=== PATIENT | male | born 1985 | race Caucasian/White ===

== ENCOUNTER → 2020-04-16 14:58 | Outpatient (BNVA) | payer OTHER, SELFPAY | PROVIDERS: PCP Physician Assistant; Visit Provider Internal Medicine Gastroenterology | DX: Z13.89 Encounter for screening for other disorder (principal) | CPT/HCPCS: 99212 ==

== ENCOUNTER 2020-09-07 10:00 | Outpatient (REF) | payer OTHER, SELFPAY ==
[2020-09-07 10:35] LABS: MANUAL DIFF FLAG NO
[2020-09-07 10:39] LABS: Basophils Absolute Auto 0.1 X10*3/uL (0.0-0.2); Eosinophils Absolute Auto 0.4 X10*3/uL (0.0-0.4); Eosinophils Percent Auto 3.1 % (0-4); Hematocrit 44.1 % (42-52); Hemoglobin 14.7 g/dl (14.0-18.0); Imm Gran Abs Auto 0.03 X10*3/uL (0.00-0.03); Imm Gran Pct Auto 0.3 % (0.0-0.4); Lymphocytes Absolute Auto 1.7 X10*3/uL (1.2-4.9); Lymphocytes Percent Auto 15.4 % (20-40); Mean Corpuscular HGB Conc 33.3 g/dl (31.0-36.0); Mean Corpuscular Hemoglobin 29.8 pg (27.0-33.0); Mean Corpuscular Volume 89.5 fL (80-98); Mean Platelet Volume 9.7 fL (9.4-12.4); Monocytes Percent Auto 8.6 % (2-11); Neutrophils Percent Auto 71.6 % (45-73); Platelet Count 438 X10*3/uL (160-400); Red Blood Count 4.93 X10*6/uL (4.60-5.80); Red Cell Distribution Width 12.5 % (11.0-16.0); White Blood Count 11.1 X10*3/uL (4.8-10.8)
[2020-09-07 11:20] LABS: Alanine Aminotransferase 12 U/L (0-40); Albumin Level 4.3 g/dL (3.5-5.0); Alkaline Phosphatase 62 U/L (39-117); Anion Gap 11 (12-20); Aspartate Amino Transferase 16 U/L (5-37); Bilirubin Total 0.8 mg/dL (0.0-1.0); Blood Urea Nitrogen 11 mg/dL (9-16); C Reactive Protein 0.22 mg/dL (< or = 0.50); Calcium 9.9 mg/dL (8.4-10.2); Carbon Dioxide 28 mmol/L (22-29); Chloride 107 mmol/L (96-108); Estimated Glomerular Filt Rate > 60; Glucose Random 99 mg/dL (60-115); Potassium 4.3 mmol/L (3.3-5.1); Sodium 142 mmol/L (135-145); Total Protein 7.3 g/dL (6.5-8.0)
[2020-09-07 11:26] LABS: Erythrocyte Sedimentation Rate 2 MM/HR (0-15)
[2020-09-07 11:43] LABS: Ferritin 44 ng/mL (20-250)
[2020-09-11 06:30] LABS: Zinc 87 mcg/dL (60-130)
== END 2020-09-07 10:01 | disposition home or self-care (01) ==
LOC: HO.LAB 10:00
PROVIDERS: Absent Provider Physician Assistant; PCP Physician Assistant; Visit Provider Internal Medicine Gastroenterology
DX: K51.90 Ulcerative colitis, unspecified, without complications (principal); K75.81 Nonalcoholic steatohepatitis (NASH)
CPT/HCPCS: 36415; 80053; 82728; 84630; 85025; 85652; 86140

== ENCOUNTER → 2020-09-17 15:24 | Outpatient (BNVA) | payer OTHER, SELFPAY | PROVIDERS: PCP Physician Assistant; Referring Provider Physician Assistant; Visit Provider Internal Medicine Gastroenterology | DX: K51.90 Ulcerative colitis, unspecified, without complications (principal) | CPT/HCPCS: 99212 ==

== ENCOUNTER 2020-09-19 10:43 | Outpatient (REF) | payer OTHER, SELFPAY ==
[2020-09-19 11:40] LABS: MANUAL DIFF FLAG NO
[2020-09-19 11:45] LABS: Basophils Absolute Auto 0.1 X10*3/uL (0.0-0.2); Basophils Percent Auto 0.8 % (0-2); Eosinophils Absolute Auto 0.4 X10*3/uL (0.0-0.4); Hematocrit 42.8 % (42-52); Hemoglobin 14.3 g/dl (14.0-18.0); Imm Gran Abs Auto 0.02 X10*3/uL (0.00-0.03); Imm Gran Pct Auto 0.3 % (0.0-0.4); Lymphocytes Absolute Auto 1.7 X10*3/uL (1.2-4.9); Lymphocytes Percent Auto 23.4 % (20-40); Mean Corpuscular HGB Conc 33.4 g/dl (31.0-36.0); Mean Corpuscular Hemoglobin 29.6 pg (27.0-33.0); Mean Corpuscular Volume 88.6 fL (80-98); Mean Platelet Volume 9.6 fL (9.4-12.4); Monocytes Absolute Auto 0.6 X10*3/uL (0.1-1.2); Monocytes Percent Auto 7.7 % (2-11); Neutrophils Absolute Auto 4.5 X10*3/uL (2.0-8.3); Neutrophils Percent Auto 62.8 % (45-73); Platelet Count 472 X10*3/uL (160-400); Red Blood Count 4.83 X10*6/uL (4.60-5.80); Red Cell Distribution Width 12.3 % (11.0-16.0); White Blood Count 7.1 X10*3/uL (4.8-10.8)
[2020-09-19 12:06] LABS: Alanine Aminotransferase 12 U/L (0-40); Albumin Level 4.2 g/dL (3.5-5.0); Alkaline Phosphatase 64 U/L (39-117); Anion Gap 11 (12-20); Aspartate Amino Transferase 16 U/L (5-37); Bilirubin Total 1.1 mg/dL (0.0-1.0); Blood Urea Nitrogen 10 mg/dL (9-16); C Reactive Protein 0.25 mg/dL (< or = 0.50); Calcium 9.7 mg/dL (8.4-10.2); Carbon Dioxide 27 mmol/L (22-29); Chloride 107 mmol/L (96-108); Estimated Glomerular Filt Rate > 60; Glucose Random 101 mg/dL (60-115); Iron 126 mcg/dL (45-160); Percent Iron Saturation 37 % (15-50); Sodium 141 mmol/L (135-145); Total Iron Binding Capacity 344 mcg/dL (228-428); Total Protein 6.9 g/dL (6.5-8.0); Unsaturated Iron Binding 218 ug/dL
[2020-09-19 12:21] LABS: Ferritin 47 ng/mL (20-250); TSH reflex Free T4 1.66 uIU/mL (0.32-4.0)
[2020-09-19 12:39] LABS: Erythrocyte Sedimentation Rate 2 MM/HR (0-15)
[2020-09-22 06:26] LABS: Zinc 93 mcg/dL (60-130)
[2020-09-24 13:11] LABS: Transglutaminase Ab IgG 2 U/mL; Transglutaminase IgA 1 U/mL
== END 2020-09-19 10:44 | disposition home or self-care (01) ==
LOC: HO.LAB 10:43
PROVIDERS: PCP Physician Assistant; Visit Provider Internal Medicine Gastroenterology
DX: G89.29 Other chronic pain (principal); K51.90 Ulcerative colitis, unspecified, without complications; R10.33 Periumbilical pain; K75.81 Nonalcoholic steatohepatitis (NASH)
CPT/HCPCS: 36415; 80053; 82728; 83516; 83540; 84443; 84630; 85025; 85652; 86140

== ENCOUNTER 2020-09-20 13:18 | Outpatient (REF) | payer OTHER, SELFPAY ==
[2020-09-20 14:49] LABS: CDiff Gene PCR NEGATIVE (Negative)
[2020-09-24 20:01] LABS: Calprotectin, Fecal 303 mcg/g
== END 2020-09-20 13:19 | disposition home or self-care (01) ==
LOC: HO.LNP 13:18
PROVIDERS: Visit Provider Internal Medicine Gastroenterology
DX: K51.90 Ulcerative colitis, unspecified, without complications (principal)
CPT/HCPCS: 83993; 87329; 87493

== ENCOUNTER 2020-12-13 11:12 | Outpatient (REF) | payer OTHER, SELFPAY ==
--- NOTE | ~2020-12-13 | XR_ITS ---
EXAMINATION: XR ABDOMEN COMPLETE CLINICAL INDICATION: K51.919 - Ulcerative colitis, unspecified COMPARISON: CT abdomen and pelvis 12/13/2020, 05/23/2019 TECHNIQUE: 2 supine views of the abdomen. FINDINGS: There is no gaseous dilatation of bowel or abnormal collections of gas. No pneumatosis or bowel displacement. The lung bases are clear. There are no visible urinary tract calculi. Bony structures are unremarkable. XR/XR abdomen 3V IMPRESSION: No obstruction or abnormal collections of gas.
[2020-12-13 11:52] LABS: Hematocrit 33.6 % (42-52); Hemoglobin 11.3 g/dl (14.0-18.0); Mean Corpuscular HGB Conc 33.6 g/dl (31.0-36.0); Mean Corpuscular Hemoglobin 30.1 pg (27.0-33.0); Mean Corpuscular Volume 89.4 fL (80-98); Platelet Count 820 X10*3/uL (160-400); Red Blood Count 3.76 X10*6/uL (4.60-5.80); Red Cell Distribution Width 13.3 % (11.0-16.0); White Blood Count 22.3 X10*3/uL (4.8-10.8)
[2020-12-13 12:20] LABS: Alanine Aminotransferase 13 U/L (0-40); Albumin Level 3.7 g/dL (3.5-5.0); Alkaline Phosphatase 62 U/L (39-117); Anion Gap 10 (12-20); Aspartate Amino Transferase 18 U/L (5-37); Bilirubin Total 0.5 mg/dL (0.0-1.0); Blood Urea Nitrogen 8 mg/dL (9-16); C Reactive Protein 1.98 mg/dL (< or = 0.50); Calcium 9.6 mg/dL (8.4-10.2); Carbon Dioxide 29 mmol/L (22-29); Chloride 105 mmol/L (96-108); Estimated Glomerular Filt Rate > 60; Glucose Fasting 107 mg/dL (60-99); Iron 31 mcg/dL (45-160); Lipase 317 U/L (8-78); Percent Iron Saturation 10 % (15-50); Potassium 4.3 mmol/L (3.3-5.1); Sodium 140 mmol/L (135-145); Total Iron Binding Capacity 325 mcg/dL (228-428); Total Protein 6.2 g/dL (6.5-8.0); Unsaturated Iron Binding 294 ug/dL
[2020-12-13 12:35] LABS: TSH reflex Free T4 3.23 uIU/mL (0.32-4.0)
[2020-12-13 12:46] LABS: Erythrocyte Sedimentation Rate 17 MM/HR (0-15)
== END 2020-12-13 11:13 | disposition home or self-care (01) ==
LOC: HO.LAB 11:12
PROVIDERS: PCP Physician Assistant; Visit Provider Physician Assistant
DX: I10 Essential (primary) hypertension (principal); K51.919 Ulcerative colitis, unspecified with unspecified complications; D50.9 Iron deficiency anemia, unspecified; Z13.29 Encounter for screening for other suspected endocrine disorder; Z13.1 Encounter for screening for diabetes mellitus
CPT/HCPCS: 36415; 74021; 80053; 83540; 83605; 83690; 84443; 85027; 85652; 86140

== ENCOUNTER 2020-12-13 15:38 | Inpatient (IN) | payer OTHER, SELFPAY ==
--- NOTE | ~2020-12-13 | CT_ITS ---
EXAMINATION: CT ABDOMEN AND PELVIS WITHOUT CONTRAST CLINICAL INFORMATION: Pancreatitis and colitis. COMPARISON: CT abdomen pelvis 05/23/2019 TECHNIQUE: Multidetector volumetric imaging was performed from the superior aspect of the liver through the pubic symphysis. Sagittal and coronal reformatted images were obtained on the technologist's workstation. This CT examination was performed using dose optimization techniques as appropriate, variously including the following: *Automated exposure control *Adjustment of mA and/or kV according to patient size (this includes techniques or standardized protocols for targeted exams where dose is matched to indication/reason for exam; i.e. extremities or head) *Use of iterative reconstruction technique DLP: 558 mGy-cm FINDINGS: LUNG BASES: The visualized lung bases are unremarkable. LIVER, GALLBLADDER, AND BILIARY TREE: The liver is normal in size, shape, and attenuation. No focal hepatic lesion or biliary ductal dilatation is present. The gallbladder is unremarkable with no evidence of radiopaque gallstones, gallbladder wall thickening, or obvious pericholecystic inflammatory changes. PANCREAS: The pancreas is homogeneous in density and normal size. The peripancreatic fat planes are preserved. SPLEEN: Unremarkable. ADRENAL GLANDS: Unremarkable. KIDNEYS AND URETERS: The kidneys are normal in size, shape, and attenuation. No hydronephrosis, hydroureter, or calculi seen. No perinephric stranding. BLADDER: Unremarkable. GASTROINTESTINAL TRACT: There is diffuse mural thickening involving the entire colon with minimal pericolic fat stranding in both flanks suggestive of pancolitis. The small bowel loops are normal caliber. Ileocecal junction and appendix is normal caliber. There are small lymph nodes seen throughout the mesocolon with the largest lymph node left needle: Measuring 1.2 cm on axial image 54/3. ABDOMINAL WALL: A small umbilical hernia containing fat is noted. LYMPH NODES: Normal. VASCULAR: Unremarkable. PELVIC VISCERA: Unremarkable. OSSEOUS STRUCTURES: No lytic or sclerotic process seen. CT/CT abdomen pelvis wo con IMPRESSION: Diffuse pancolitis. Enlarged lymph nodes throughout the mesocolon most prominent in the left colon.
[2020-12-13 16:28] VITALS: BP 131/77; PULSE 99; RESP 18; TEMP 37.1; O2SAT 98; BMI 27.9
--- NOTE | 2020-12-13 18:55 | ED_ITS ---
HPI - Abdominal Pain General Chief Complaint: Abdominal Pain Stated Complaint: Abnormal labs Time Seen by Provider: 12/13/20 18:40 Source: patient and family (Spouse) Mode of arrival: ambulatory Limitations: no limitations History of Present Illness HPI narrative: 35-year-old male came in for evaluation of abdominal pain, elevated wbc. Patient with known history of ulcerative colitis has been on apriso and mesalam ine that he discontinued after he lost his insurance because he can not afford it, patient came in with symptoms started 3-4 days ago with abdominal pain, vomiting pain is diffuse in the abdomen, no radiation, constant, severe /, associated with nausea and vomiting and bloody loose stool in generalized weakness, nothing relieves the pain, pain get worse with food and fluid. Patient was seen by his PCP and was sent to the emergency department for further evaluation of leukocytosis and elevation of the lipase. Related Data Home Medications Medication Instructions Recorded Confirmed buspirone 10 mg tablet 10 mg PO BID 04/16/20 12/13/20 Previous Rx's Medication Instructions Recorded mesalamine 1,000 mg rectal 1 g RI BEDTIME 30 Days #30 supp 12/13/20 suppository mesalamine 500 mg 1,500 mg PO ONCE 30 Days #90 cap 12/13/20 capsule,controlled release omeprazole 20 mg capsule,delayed 20 mg PO DAILY 30 Days #30 cap 12/13/20 release ondansetron 8 mg disintegrating 8 mg PO Q12H 15 Days #30 tab 12/13/20 tablet prednisone 10 mg tablet 10 mg PO DAILY 9 Days #18 tab 12/13/20 Allergies Allergy/AdvReac Type Severity Reaction Status Date / Time No Known Allergies Allergy Verified 12/13/20 16:31 Review of Systems Review of Systems All other systems are reviewed and are negative Constitutional: Reports as per HPI and Reports no additional constitutional complaints Eyes: Reports as per HPI and Reports no additional eye complaints Reports system reviewed and no additional complaints, except as documented Cardiovascular: Reports as per HPI and Reports no additional cardiovascular complaints Respiratory: Reports as per HPI and Reports no additional respiratory complaints Gastrointestinal: Reports as per HPI and Reports no additional gastrointestinal complaints Genitourinary: Reports no additional female genitourinary complaints Musculoskeletal: Reports no additional musculoskeletal complaints Skin/Breast: Reports system reviewed and no additional complaints, except as docu Psychiatric: Reports no additional psychiatric complaints Endocrine: Reports no additional endocrine complaints Hematologic/Lymphatic: Reports no additional hematologic/lymphatic complaints Allergic/Immunologic: Reports no additional allergic/immunologic complaints Reports system reviewed and no additional complaints, except as documented and Reports Abnormal speech present Physical Exam Vital Signs: Vital Signs: Last Vital Signs Temp 98.7 F 12/13/20 16:28 Pulse 99 12/13/20 16:28 Resp 18 12/13/20 16:28 BP 131/77 12/13/20 16:28 Pulse Ox 98 12/13/20 16:28 Body Mass Index 27.9 Vital signs have been reviewed as appeared to be correct. Blood pressure normal. Heart rate normal. Respiration rate normal. Temperature normal. Oxygen saturation normal. Appearance: Alert. Oriented X3. No acute distress. Head: Normal external exam. Normocephalic. Atraumatic. No Pham signs noted. No raccoon eyes noted Eyes: PERRLA. EOMI. Conjunctiva and sclera normal. Eyelids normal. ENT: TM's Normal. Pharynx normal. Uvula midline. Dry mucous membranes. No trismus noted. No drooling noted. No muffled voice noted. Neck: Normal inspection. Neck supple. FROM. No adenopathy. Thyroid Normal. No meningeal signs. No neck mass noted. CVS: Normal heart rate and rhythm. Heart sound normal. No murmurs noted. Pulses normal throughout. Respiratory: No respiratory distress. Painless inspiration. Breath sounds normal. No wheezes/rales/rhonchi noted. Chest nontender. No accessory muscle usage noted or decreased air movement noted. Abdomen: Soft, diffuse tenderness, no guarding, no rebound tenderness. Bowel sounds normal in all 4 quadrants. No distention noted. No organomegaly noted. No visible injury noted. Back: No CVA tenderness. Full range of motion noted. Skin: Skin warm and dry. Normal skin color. Normal skin turgor. No rashes/lesions/lacerations noted. Extremities: No lower extremity edema. Extremities exhibit normal range of motion. Extremities nontender. Neuro: Oriented X 3. Cranial nerve exam: II-XII are grossly intact No motor deficit. No sensory deficit. Reflexes normal. Course Course Course Narrative: Assessment and plan. 35-year-old male history of ulcerative colitis follow-up with Dr. House, came in with abdominal pain and leukocytosis. Physical exam/CT finding are consistent with colitis flare up. Case discussed with Dr. House who recommended to start the patient on antibiotics, send stool for further study, hydration, hold of on steroid until stool studies are back. Elevated lipase, no evidence of acute pancreatitis on the CT. MDM - Abdominal Pain Lab Data Attestation: I reviewed the patient's lab results. Labs: Lab Results 12/13/20 Range/Units 19:33 Lactic Acid 1.0 (0.5-2.0) mmol/L Imaging Data CT scan - abdomen: Radiologist's impression: Diffuse pancolitis. ? Enlarged lymph nodes throughout the mesocolon most prominent in the left colon.? Discharge Plan Discharge Clinical Impression: Ulcerative colitis Patient Disposition: Admitted As Inpatient Prescriptions: No Action buspirone 10 mg tablet 10 mg PO BID RF: 0 prednisone 10 mg tablet 10 mg PO DAILY 9 Days Qty: 18 RF: 0 mesalamine 1,000 mg suppository 1 g RI BEDTIME 30 Days Qty: 30 RF: 0 mesalamine 500 mg capsule, extended release 1,500 mg PO ONCE 30 Days Qty: 90 RF: 0 ondansetron 8 mg tablet,disintegrating 8 mg PO Q12H 15 Days Qty: 30 RF: 0 omeprazole 20 mg capsule,delayed release(DR/EC) 20 mg PO DAILY 30 Days Qty: 30 RF: 0 PMFSH Past Medical History Medical History Ulcerative colitis Surgical History H/O colonoscopy No pertinent past surgical history Family History Family History Father Diabetes Hypertension Mother Tachycardia Daughter In good health Daughter In good health Sister In good health Sister In good health Sister In good health Maternal Grandfather Myocardial infarction Maternal Aunt Stroke Maternal Grandmother Alzheimer disease Social History Social History Household Members: Spouse and Children Housing: Apartment Alcohol intake: current Alcohol intake frequency: does not drink Patient Tobacco Use Status: Former Tobacco user Years Smoked: 2017 e-Cigarette/Vaping Use: Never Used Advance Directives: No Advance Directives Information Provided: No Current occupational status: employed Current occupation: [employer]
[2020-12-13] MEDS: ondansetron HCL 4 MG/2 ML VIAL IVPUSH (19:47)
[2020-12-13] MEDS: 0.9 % Sodium Chloride 2,052 ML 2052 ML IV (19:47)
[2020-12-13] MEDS: metroNIDAZOLE/NS 500 MG/100 ML PIGGYBACK 100 MG IV (19:53)
[2020-12-13] MEDS: levoFLOXacin/D5W 750 MG/150 ML PIGGYBACK 100 MG IV (20:58)
--- NOTE | 2020-12-13 21:04 | PHA.MEDREC ---
Pharmacy Consult ? Medication Reconciliation Pharmacy has completed the medication reconciliation. Patient had a primary care appointment today where he was prescribed mesalamine 1500 mg daily, omeprazole 20mg daily, ondansetron 8mg q12h and a prednisone taper. The patient came straight from the office and wasn't able to fill any of these medications prescribed by Jose Stephen. The patient also takes buspirone 10 mg BID and Mesalamine 1000mg rectally at bedtime. [address] St, PharmD [phone]
--- NOTE | 2020-12-13 21:06 | PC.NURSE ---
pt a&o, no sob or chest pain. Second antibiotic delayed due to 1 Iv access. Pt starting a Po change at this time.
--- NOTE | 2020-12-13 21:26 | PM.IMHP ---
History of Present Illness Date of Service: 12/13/20 Chief Complaint: Abdominal pain 35-year-old male with past medical history of ulcerative colitis who presents to the hospital with complaints of abdominal pain, and bloody diarrhea for the past 1-2 months. Patient reports he is also experiencing abdominal pain. The pain is diffuse, cramping, intermittent, nonradiating, no alleviating or exacerbating factors. Patient reports that he went to his PCP today, had blood work done, he was called few hours later and was sent to the hospital due to abnormal labs. Patient currently denies any headache, no change in vision, no chest pain, no palpitations, no urinary symptoms and no lower extremity edema. No numbness tingling or weakness On arrival to the ED hemodynamically stable with no significant abnormal vitals Labs reviewed show hemoglobin of 11.3, elevated CRP and ESR, elevated lipase, Otherwise unremarkable Abdominal CT shows diffuse pancolitis, enlarged lymph nodes throughout the massive: Most prominent in the left colon Case was discussed with GI, patient will be admitted for further management Review of Systems Review of Systems: Yes all other systems are reviewed and are negative [facility] Medical History Ulcerative colitis Family History Father Diabetes Hypertension Mother Tachycardia Daughter In good health Daughter In good health Sister In good health Sister In good health Sister In good health Maternal Grandfather Myocardial infarction Maternal Aunt Stroke Maternal Grandmother Alzheimer disease Pertinent family history: No present history Surgical History H/O colonoscopy No pertinent past surgical history Social History Household Members: Spouse and Children Housing: Apartment Alcohol intake: never Patient Tobacco Use Status: Former Tobacco user Years Smoked: 2017 e-Cigarette/Vaping Use: Never Used Use of substances other than those prescribed or required for medical reasons: No Advance Directives: No Advance Directives Information Provided: No service: No Current occupational status: employed Current occupation: [employer] Allergies Allergy/AdvReac Type Severity Reaction Status Date / Time No Known Allergies Allergy Verified 12/13/20 16:31 Active Medications: Current Medications Pharmacy Consult (Consult Rx Perform Med Rec) 1 each MISCELLANE ONCE PRN PRN Reason: Consult order Home Medications Medication Instructions Recorded Confirmed Last Taken Type buspirone 10 mg tablet 10 mg PO BID 04/16/20 12/13/20 Unknown History Physical Exam Vital Signs and Narrative: Vital Signs: Last Vital Signs Temp 98.7 F 12/13/20 16:28 Pulse 99 12/13/20 16:28 Resp 18 12/13/20 16:28 BP 131/77 12/13/20 16:28 Pulse Ox 98 12/13/20 16:28 Body Mass Index 27.9 Const: General: cooperative and no acute distress Orientation/consciousness: patient oriented x3 Eyes: General: appearance normal, both eyes and all related structures Pupils: Equal, round and reactive pupils present Resp: Effort & Inspection: normal respiratory effort Auscultation: clear to auscultation bilaterally Cardio: Rate: regular rate Rhythm: regular rhythm GI: Other: Diffuse tenderness, no rebound or guarding Palpation (GI): Soft to palpation Auscultation: normal bowel sounds Skin: General skin exam: no rashes or lesions noted Neuro: General: patient oriented x3 Cranial nerves: Yes Equal, round and reactive pupils present Cognition (Neuro): normal cognition Extrem: General: Yes normal to inspection and Yes no pedal edema Results Labs Labs: Laboratory Results - last 24 hr 12/13/20 19:33 Lactic Acid 1.0 Imaging Radiologist's Impressions: Impressions Abdomen/Pelvis CT 12/13/20 18:47 IMPRESSION: Diffuse pancolitis. Enlarged lymph nodes throughout the mesocolon most prominent in the left colon. Assessment and Plan (1) Ulcerative colitis: Status: Acute VTE 5-year-old male with past medical history of ulcerative colitis presents to the hospital with abdominal pain and bloody diarrhea # ulcerative colitis flare - has abdominal pain, diarrhea, and CT evidence of pancolitis - rule out infectious etiology, C diff, stool cultures - will start him on IV antibiotics - GI once stool cultures to be back prior to starting steroids - further GI recommendation appreciated DVT prophylaxis: SCDs and early ambulation the setting of bleeding with ulcerative colitis Quality Stroke Does the patient have a stroke diagnosis?: No VTE Prior VTE?: No VTE Risk Level:: Medical - moderate - high VTE Device Contraindication: N/A - Device Ordered VTE Drug Contraindication: Treatment Not Indicated
[2020-12-13 21:51] LABS: COVID-19 Test Negative (Negative); IDNOW Serial# 9DD0AD1C
[2020-12-13 21:55] VITALS: BP 111/58; RESP 16
[2020-12-13 22:06] VITALS: BP 111/58; PULSE 92; RESP 18; TEMP 36.6; O2SAT 100
[2020-12-13 22:08] LABS: OBS Int Ctl Valid YES; OBS1 POSITIVE (NEGATIVE)
--- NOTE | 2020-12-13 22:14 | MHC.CM.PN ---
CM met with admitted patient with bed assignment pending. [facility]. No IMM necessary. No HCP/ HCP reviewed, completed and signed. Copies given and uploaded into [facility] [employer] and [facility] [place] HCP/ Ladan Martinez ([phone]). Lives with and family. Independent. No DME, No services. Not vaccinated. CM encouraged vaccination. D/C plan is home without services. Transportation by family. CM to follow for d/c needs.
[2020-12-13] MEDS: Lactated Ringers 1,000 ML 80 ML IVCONT (22:34)
[2020-12-13] MEDS: Enoxaparin Sodium 40 MG/0.4 ML SYRINGE SUBCUT (22:37)
[2020-12-13 22:39] VITALS: BP 123/70; PULSE 88; RESP 16
[2020-12-13 23:00] LABS: CDiff Gene PCR NEGATIVE (Negative); Leukocytes Stool Qualitative MANY: >10/OIF (NEGATIVE)
[2020-12-13 23:08] VITALS: BP 119/64; PULSE 87; RESP 16; O2SAT 98
--- NOTE | 2020-12-13 23:23 | PC.NURSE ---
pt is resting, no n/v. medicated per mar.
[2020-12-14] VITALS (8 sets, daily range): BP systolic 101–144; BP diastolic 47–73; PULSE 73–96; RESP 14–18; TEMP 36.8–37.2; O2SAT 97–100
[2020-12-14 00:48] LABS: Appearance Urine CLEAR; Color Urine YELLOW; Glucose Urine UA NEG (NEG); Leukocyte Esterase Urine NEG (NEG); Nitrite Urine NEG (NEG); Specific Gravity - Urine >= 1.030 (1.005-1.025); Urine Blood NEG (NEG); Urine Ketones 15 MG/DL (NEG); Urine Protein NEG (NEG-TRACE)
--- NOTE | 2020-12-14 01:17 | PC.NURSE ---
Pt is sleeping at this time, no sign of distress. Iv fluid running per mar.
--- NOTE | 2020-12-14 04:07 | PC.NURSE ---
pt is sleeping at this no sign of distress.
--- NOTE | 2020-12-14 06:00 | PC.NURSE ---
tried to get updated vitals on pt and she refused and told me that we had gotten enough from her .
[2020-12-14 06:09] LABS: Basophils Absolute Auto 0.1 X10*3/uL (0.0-0.2); Basophils Percent Auto 0.4 % (0-2); Eosinophils Percent Auto 22.4 % (0-4); Hematocrit 26.9 % (42-52); Hemoglobin 8.8 g/dl (14.0-18.0); Imm Gran Abs Auto 0.11 X10*3/uL (0.00-0.03); Imm Gran Pct Auto 0.6 % (0.0-0.4); Lymphocytes Absolute Auto 2.3 X10*3/uL (1.2-4.9); Lymphocytes Percent Auto 12.9 % (20-40); MANUAL DIFF FLAG SCAN; Mean Corpuscular HGB Conc 32.7 g/dl (31.0-36.0); Mean Corpuscular Hemoglobin 29.2 pg (27.0-33.0); Mean Corpuscular Volume 89.4 fL (80-98); Mean Platelet Volume 8.7 fL (9.4-12.4); Monocytes Absolute Auto 1.6 X10*3/uL (0.1-1.2); Monocytes Percent Auto 8.7 % (2-11); Neutrophils Absolute Auto 9.9 X10*3/uL (2.0-8.3); Platelet Count 632 X10*3/uL (160-400); Red Blood Count 3.01 X10*6/uL (4.60-5.80); Red Cell Distribution Width 13.5 % (11.0-16.0); SCAN SMEAR FLAG 1; White Blood Count 18.1 X10*3/uL (4.8-10.8)
[2020-12-14] MEDS: Omeprazole 20 MG CAPSULE.DR PO ×2 (06:21→14:51)
[2020-12-14 06:24] LABS: Anion Gap 8 (12-20); Blood Urea Nitrogen 4 mg/dL (9-16); Calcium 8.3 mg/dL (8.4-10.2); Carbon Dioxide 27 mmol/L (22-29); Chloride 109 mmol/L (96-108); Creatinine Clr Calc Pharmacy 125.9; Estimated Glomerular Filt Rate > 60; Glucose Random 102 mg/dL (60-115); Potassium 3.7 mmol/L (3.3-5.1); Sodium 140 mmol/L (135-145)
[2020-12-14 06:37] LABS: SLIDE REVIEW VERIFIED
[2020-12-14] MEDS: metroNIDAZOLE/NS 500 MG/100 ML PIGGYBACK 100 MG IV ×3 (07:00→22:57)
[2020-12-14 07:52] LABS: Hematocrit 27.9 % (42-52); Hemoglobin 9.3 g/dl (14.0-18.0)
[2020-12-14] MEDS: 0.9 % Sodium Chloride Flush 3 ML SYRINGE IVFLUSH (08:06)
[2020-12-14] MEDS: levoFLOXacin/D5W 750 MG/150 ML PIGGYBACK 100 MG IV (08:06)
[2020-12-14 08:27] LABS: Iron 35 mcg/dL (45-160); Percent Iron Saturation 15 % (15-50); Total Iron Binding Capacity 241 mcg/dL (228-428); Unsaturated Iron Binding 206 ug/dL
--- NOTE | 2020-12-14 08:31 | PC.NURSE ---
Patient A+O x 4. Patient resting comfortably, in no apparent distress. Patient denies pain, dizziness, lightheadedness, color good. Patient amb to bathroom, steady on feet. Lungs clear bilat. Abdomen soft, nontender, BS active, patient had bloody/mucousy BM. Awaiting bed assignment.
[2020-12-14 08:47] LABS: Ferritin 18 ng/mL (20-250)
[2020-12-14 09:18] LABS: Folate 14.3 ng/mL (> or = 4.0); Vitamin B12 391 pg/mL (200-900)
[2020-12-14] MEDS: busPIRone HCl 10 MG TABLET PO ×2 (09:23→21:40)
[2020-12-14] MEDS: Lactated Ringers 1,000 ML 80 ML IVCONT ×2 (09:23→22:57)
--- NOTE | 2020-12-14 11:24 | PC.NURSE ---
pt seen by dr. baltazar mcgowan is aware of plan of care.
--- NOTE | 2020-12-14 11:33 | PC.NURSE ---
PT C/O SLIGHT NAUSEA, TO BE MED X 1 WITH ZOFRAN 4MG IVP X 1
[2020-12-14] MEDS: ondansetron HCL 4 MG/2 ML VIAL IVPUSH (11:34)
--- NOTE | 2020-12-14 12:58 | HO.PM.IMPN ---
Subjective Subjective Date of Service: 12/14/20 Interval History: ulcerative colitis flare Review of Systems still having mucousy stools with blood Has some left-sided abdominal pain Denies any complaint of chest pain or shortness of breath or fever or chills or nausea or vomiting Denies any cough Denies any weakness or numbness. Physical Exam Vital Signs: Vital Signs: Last Vital Signs Temp 98.6 F 12/14/20 11:22 Pulse 75 12/14/20 11:22 Resp 16 12/14/20 11:22 BP 120/58 L 12/14/20 11:22 Pulse Ox 99 12/14/20 11:22 Body Mass Index 27.9 Physical exam: Appearance: Alert.? Oriented X3.? not in distress.? Eyes: Pupils equal, round and reactive to light.? Sclera nonicteric.? ENT: Pharynx normal.? Moist mucous membranes. cvs: rrr, [id number] , no murmur res: clear to auscultation ,no rhonchii or wheezing abd: no rebound or guarding ,left lowe abd pain , bs present. ext pulses present , no cyanosis ,Gait well balanced well coordinated. neuro: axo3 , nonfocal. Objective Data Active Medications Acetaminophen (Acetaminophen 325 Mg Tablet) 650 mg PO Q6H PRN PRN Reason: Pain, Mild (Pain Scale 1-3) Buspirone HCl (Buspirone Hcl 10 Mg Tablet) 10 mg PO BID [facility] Last Admin: 12/14/20 09:23 Dose: 10 mg Documented by: MAGALY Lactated Ringer's (Lr) 1,000 mls @ 80 mls/hr IVCONT .[id number] [facility] Last Admin: 12/14/20 09:23 Dose: 80 mls/hr Documented by: MAGLAY Levofloxacin (Levaquin) 750 mg in 150 mls @ 100 mls/hr IV Q24H [facility] Last Infusion: 12/14/20 09:40 Dose: 0 mls/hr Documented by: MAGALY Metronidazole (Flagyl) 500 mg in 100 mls @ 100 mls/hr IV Q8H [facility] Last Infusion: 12/14/20 08:06 Dose: 0 mls/hr Documented by: MAGALY Non-Formulary Medication (Mesalamine) 1 gm [place] BEDTIME [facility] Omeprazole (Omeprazole 20 Mg Capsule.) 20 mg PO BID@0630,1630 [facility] Ondansetron HCl (Ondansetron Hcl 4 Mg/2 Ml Vial) 4 mg IVPUSH Q8H PRN PRN Reason: Nausea and Vomiting Last Admin: 12/14/20 11:34 Dose: 4 mg Documented by: RAMON Oxycodone HCl (Oxycodone Hcl Immed Release 5 Mg Tablet) 5 mg PO Q6H PRN PRN Reason: Pain, Severe (Pain Scale 7-10) Pharmacy Consult (Consult Rx Perform Med Rec) 1 each MISCELLANE ONCE PRN PRN Reason: Consult order Sodium Chloride (0.9 % Sodium Chloride Flush 3 Ml Syringe) 3 ml IVFLUSH QSHIFT [facility] Last Admin: 12/14/20 08:06 Dose: 3 ml Documented by: MAGALY Labs CBC & Chem 7: 12/14/20 07:47 12/14/20 05:57 Labs: Laboratory Results - last 24 hr 12/13/20 12/13/20 12/13/20 19:33 21:32 22:01 MCV MCH MCHC RDW Plt Count MPV Immature Gran % (Auto) Neut % (Auto) Lymph % (Auto) [place] % (Auto) Eos % (Auto) Baso % (Auto) Lymph # (Auto) [place] # (Auto) Eos # (Auto) Baso # (Auto) Abs Immat Gran (auto) Absolute Neuts (auto) Absolute Nucleated RBC Nucleated RBC % (auto) Smear Tech's Comments Anion Gap Estim Creat Clear Calc Estimated GFR Random Glucose Lactic Acid 1.0 Calcium Iron TIBC % Saturation Unsat Iron Binding Ferritin Vitamin B12 Folate Urine Color Urine Appearance Urine pH Ur Specific [place] Urine Protein Urine Glucose (UA) Urine Ketones Urine Blood Urine Nitrite Ur Leukocyte Esterase Stool Occult Blood POSITIVE Stool Leukocytes, Qual C. difficile Tox B Gene COVID-19 (JUSTIN) Negative COVID-19 Clin Com See Note Blood Type Antibody Screen 12/13/20 12/13/20 12/14/20 22:01 22:01 00:40 MCV MCH MCHC RDW Plt Count MPV Immature Gran % (Auto) Neut % (Auto) Lymph % (Auto) [place] % (Auto) Eos % (Auto) Baso % (Auto) Lymph # (Auto) [place] # (Auto) Eos # (Auto) Baso # (Auto) Abs Immat Gran (auto) Absolute Neuts (auto) Absolute Nucleated RBC Nucleated RBC % (auto) Smear Tech's Comments Anion Gap Estim Creat Clear Calc Estimated GFR Random Glucose Lactic Acid Calcium Iron TIBC % Saturation Unsat Iron Binding Ferritin Vitamin B12 Folate Urine Color YELLOW Urine Appearance CLEAR Urine pH 6.0 Ur Specific [place] >= 1.030 H Urine Protein NEG Urine Glucose (UA) NEG Urine Ketones 15 Urine Blood NEG Urine Nitrite NEG Ur Leukocyte Esterase NEG Stool Occult Blood Stool Leukocytes, Qual MANY: >10/OIF C. difficile Tox B Gene NEGATIVE COVID-19 (JUSTIN) COVID-[employer] Blood Type Antibody Screen 12/14/20 12/14/20 12/14/20 05:57 05:57 05:57 MCV 89.4 MCH 29.2 MCHC 32.7 RDW 13.5 Plt Count 632 H MPV 8.7 L Immature Gran % (Auto) 0.6 H Neut % (Auto) 55.0 Lymph % (Auto) 12.9 L [place] % (Auto) 8.7 Eos % (Auto) 22.4 H Baso % (Auto) 0.4 Lymph # (Auto) 2.3 [place] # (Auto) 1.6 H Eos # (Auto) 4.0 H Baso # (Auto) 0.1 Abs Immat Gran (auto) 0.11 H Absolute Neuts (auto) 9.9 H Absolute Nucleated RBC 0.000 Nucleated RBC % (auto) 0.0 Smear Tech's Comments VERIFIED Anion Gap 8 L Estim Creat Clear Calc 125.9 Estimated GFR > 60 Random Glucose 102 Lactic Acid Calcium 8.3 L D Iron 35 L TIBC 241 % Saturation 15 Unsat Iron Binding 206 Ferritin 18 L Vitamin B12 391 Folate 14.3 Urine Color Urine Appearance Urine pH Ur Specific [place] Urine Protein Urine Glucose (UA) Urine Ketones Urine Blood Urine Nitrite Ur Leukocyte Esterase Stool Occult Blood Stool Leukocytes, Qual C. difficile Tox B Gene COVID-19 (JUSTIN) [employer] Blood Type Antibody Screen 12/14/20 07:52 MCV MCH MCHC RDW Plt Count MPV Immature Gran % (Auto) Neut % (Auto) Lymph % (Auto) [place] % (Auto) Eos % (Auto) Baso % (Auto) Lymph # (Auto) [place] # (Auto) Eos # (Auto) Baso # (Auto) Abs Immat Gran (auto) Absolute Neuts (auto) Absolute Nucleated RBC Nucleated RBC % (auto) Smear Tech's Comments Anion Gap Estim Creat Clear Calc Estimated GFR Random Glucose Lactic Acid Calcium Iron TIBC % Saturation Unsat Iron Binding Ferritin Vitamin B12 Folate Urine Color Urine Appearance Urine pH Ur Specific [place] Urine Protein Urine Glucose (UA) Urine Ketones Urine Blood Urine Nitrite Ur Leukocyte Esterase Stool Occult Blood Stool Leukocytes, Qual C. difficile Tox B Gene COVID-19 (JUSTIN) COVID-19 Clin Com Blood Type O Positive Antibody Screen NEGATIVE Assessment and Plan (1) Ulcerative colitis: Status: Acute (2) Anemia: Status: Acute Assessment and Plan: ?35-year-old male with past medical history of ulcerative colitis presents to the hospital with abdominal pain and bloody diarrhea 1. ulcerative colitis flare - has abdominal pain, diarrhea, and CT evidence of pancolitis Leukocytosis trending down, no fever - rule out infectious etiology: C diffneg , stool for wbc >10, stool cultures pending on IV antibiotics-levaquin/flagyl day2, oxycodone,GI once stool cultures to be back prior to starting steroids - further GI recommendation appreciated 2. acute blood loss anemia on ch: probbale due to ulcerative colitis h/h trending down to 9.1 range type and cross moniter cbc, added omeprazole DVT prophylaxis:? SCDs and early ambulation the setting of bleeding with ulcerative colitis Quality Stroke Does the patient have a stroke diagnosis?: No VTE Prior VTE?: No VTE Risk Level:: Medical - moderate - high VTE Device Contraindication: N/A - Device Ordered VTE Drug Contraindication: Treatment Not Indicated
--- NOTE | 2020-12-14 13:57 | PC.NURSE ---
rn to rn given to areli poon aware of plan of care for admission to hosp, pt is eating lunch.
--- NOTE | 2020-12-14 15:53 | P.CNGI_ITS ---
History of Present Illness Data of Consult Service Date: 12/14/20 Requesting physician: Alison Branham Primary Care Provider: Jose Stephen PA-C [facility] Reason for consult: Uc flare, anemia 35-year-old male with ulcerative colitis seen at [facility] on 12/13/20 with abdominal pain, and bloody diarrhea for the past 1-2 months.? Patient reports he is also experiencing abdominal pain.? The pain is diffuse, cramping, intermittent, nonradiating, no alleviating or exacerbating factors.? Patient was seen by his PCP on 12/13/20. Lab tests showed worsening anemia and elevated lipase. He was called few hours later and advised to go to the ER due to abnormal labs. On arrival to the ED hemodynamically stable with no significant abnormal vitals Labs reviewed show hemoglobin of 11.3, elevated CRP 1.95 and ESR, elevated lipase, Otherwise unremarkable Pt quitted working in July, and lost his insurance. Unable to pay for his medications (cost $ 400/month). He ran out of mesalamine end of August and has noted abdominal cramps,, bloody diarrhea. He reports having 7-8 bowel movements a day. Admits to nocturnal diarrhea. Patient denies fever, chills or sweating, arthritis, joint pains, skin rash or mouth ulcers. Complains of weight loss from 206-184 lbs. Patient denies major cardiac or pulmonary problems, loud snoring or sleep apnea Denies being on chronic anticoagulation. Patient denies known family history of IBD, colon polyps, colon cancer or other GI malignancies. Pt is and lives with his , has 2 daughters 13 and 16 yr old. 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 He quitted smoking in 2017. Drinks ETOH on special occasions only (10 drinks/year). Pt was admitted and started on IV antibiotics-levaquin/flagyl day2, oxycodone,GI once stool cultures to be back prior to starting steroids. Repeat H & H is stable today. IMAGING STUDIES: 12/13/[address] SCAN SHOWED: GASTROINTESTINAL TRACT: There is diffuse mural thickening involving the entire colon with minimal pericolic fat stranding in both flanks suggestive of pancolitis. The small bowel loops are normal caliber. Ileocecal junction and appendix is normal caliber. There are small lymph nodes seen throughout the mesocolon with the largest lymph node left needle: Measuring 1.2 cm on axial image 54/3. ENDOSCOPIC STUDIES: 04/2019 [address] NIIGUEZ: showed pin point ulcers from the rectum to the distal TC. Biopsies showed Mild colitis in the right colon and moderate colitis in the left colon. PAST GI HISTORY BY REVIEW OF MEDICAL RECORDS: Pt previously followed by Dr Iniguez and most recently by Dr House and has a FU appt on 12/25/20 Stool calprotectin 1390 in April 2019 and 303 in August 2020. Review of Systems Constitutional: Constitutional: Reports fatigue, Denies fever(s), Denies headache(s) and Reports weight loss Eyes: Eyes: Denies eye discharge and Denies irritation ENT: Reports Normal hearing present, Denies dysphagia, Denies dizziness and Denies headache(s) Cardiovascular: Cardiovascular: Denies chest pain, Denies leg edema and Denies dyspnea on exertion Respiratory: Respiratory: Denies cough and Denies dyspnea on exertion Gastrointestinal: Gastrointestinal: Reports abdominal pain, Reports hematochezia, Denies change in bowel habits, Denies dysphagia, Denies heartburn, Reports diarrhea and Reports nausea Genitourinary: Genitourinary: Denies dysuria Musculoskeletal: Musculoskeletal: Denies back pain and Denies arthralgias Integumentary/Breasts: Skin/Breast: Denies pruritus, Denies rash and Denies jaundice Neurologic: Reports Normal hearing present, Denies Abnormal speech present, Denies dizziness, Denies headache(s) and Denies seizure-like activity Psychiatric: Psychiatric: Denies anxiety, Denies depression and Denies panic attacks Endocrine: Endocrine: Denies cold intolerance, Reports fatigue, Denies flushing and Denies heat intolerance Hematologic/Lymphatic: Hematologic/Lymphatic: Denies easy bleeding and Denies easy bruising PMFSH Past Medical History Medical History (Updated 12/14/20 @ 17:25 by Mely Gutiérrez MD) Ulcerative colitis Family History Family History Father Diabetes Hypertension Mother Tachycardia Daughter In good health Daughter In good health Sister In good health Sister In good health Sister In good health Maternal Grandfather Myocardial infarction Maternal Aunt Stroke Maternal Grandmother Alzheimer disease Surgical History Surgical History H/O colonoscopy No pertinent past surgical history Social History Social History Household Members: Significant Other and Children Housing: Apartment Do you presently have visiting nurse or other home services: No Alcohol intake: never Patient Tobacco Use Status: Former Tobacco user Tobacco use type: Cigarette Years Smoked: 2016 e-Cigarette/Vaping Use: Never Used service: No Current occupational status: employed Current occupation: [employer] Allergies Allergy/AdvReac Type Severity Reaction Status Date / Time No Known Allergies Allergy Verified 12/13/20 16:31 Active Medications: Current Medications Acetaminophen (Acetaminophen 325 Mg Tablet) 650 mg PO Q6H PRN PRN Reason: Pain, Mild (Pain Scale 1-3) Buspirone HCl (Buspirone Hcl 10 Mg Tablet) 10 mg PO BID [facility] Last Admin: 12/14/20 09:23 Dose: 10 mg Documented by: Lactated Ringer's (Lr) 1,000 mls @ 80 mls/hr IVCONT .[id number] [facility] Last Admin: 12/14/20 09:23 Dose: 80 mls/hr Documented by: Levofloxacin (Levaquin) 750 mg in 150 mls @ 100 mls/hr IV Q24H [facility] Last Infusion: 12/14/20 09:40 Dose: Infused Documented by: Metronidazole (Flagyl) 500 mg in 100 mls @ 100 mls/hr IV Q8H [facility] Last Infusion: 12/14/20 15:50 Dose: Infused Documented by: Non-Formulary Medication (Mesalamine) 1 gm [place] BEDTIME [facility] Omeprazole (Omeprazole 20 Mg Capsule.Dr) 20 mg PO BID@0630,1630 [facility] Last Admin: 12/14/20 14:51 Dose: 20 mg Documented by: Ondansetron HCl (Ondansetron Hcl 4 Mg/2 Ml Vial) 4 mg IVPUSH Q8H PRN PRN Reason: Nausea and Vomiting Last Admin: 12/14/20 11:34 Dose: 4 mg Documented by: Oxycodone HCl (Oxycodone Hcl Immed Release 5 Mg Tablet) 5 mg PO Q6H PRN PRN Reason: Pain, Severe (Pain Scale 7-10) Pharmacy Consult (Consult Rx Perform Med Rec) 1 each MISCELLANE ONCE PRN PRN Reason: Consult order Sodium Chloride (0.9 % Sodium Chloride Flush 3 Ml Syringe) 3 ml IVFLUSH QSHIFT [facility] Last Admin: 12/14/20 14:51 Dose: Not Given Documented by: Home Medications Medication Instructions Recorded Confirmed Last Taken Type buspirone 10 mg tablet 10 mg PO BID 04/16/20 12/13/20 Unknown History Physical Exam Vital Signs: Vital Signs: Last Vital Signs Temp 98.6 F 12/14/20 15:29 Pulse 96 12/14/20 15:29 Resp 17 12/14/20 15:29 BP 144/73 H 12/14/20 15:29 Pulse Ox 100 12/14/20 15:29 Body Mass Index 27.9 Const: General: healthy appearing and no acute distress Nutritional Appearance: average body habitus Orientation/consciousness: patient oriented x3 Limitations: no limitations HENMT: Head: Yes normal to inspection Ears: hearing grossly normal bilaterally Mouth: Normal oral and palatal mucosa present Eyes: Sclerae: sclerae normal Pupils: Equal, round and reactive pupils present Neck: Neck: Yes normal visual inspection Chest: Chest palpation & inspection: normal inspection of the chest Resp: Effort & Inspection: normal respiratory effort Auscultation: clear to auscultation bilaterally Cardio: Palpation: normal PMI Rate: regular rate Rhythm: regular rhythm Heart sounds: S1 normal heart sound present, S2 normal heart sound present and no murmurs GI: Palpation (GI): Soft to palpation, nontender and No hepatosplenomegaly present Auscultation: normal bowel sounds Rectal Exam - Male: Yes deferred Skin: General skin exam: no rashes or lesions noted Neuro: General: patient oriented x3, gait normal and moves all extremities Cranial nerves: Yes Equal, round and reactive pupils present and Yes Normal hearing present Speech: No Abnormal speech present Psych: Appearance: grossly normal Mental Status: mental status grossly normal Results Labs CBC & Chem 7: 12/14/20 07:47 12/14/20 05:57 Labs: Short CBC 12/14/20 12/14/20 Range/Units 05:57 07:47 WBC 18.1 H (4.8-10.8) X10*3/uL Hgb 8.8 L D 9.3 L (14.0-18.0) g/dl Hct 26.9 L 27.9 L (42-52) % Plt Count 632 H (160-400) X10*3/uL BMP 12/14/20 05:57 Sodium 140 Potassium 3.7 Chloride 109 H Carbon Dioxide 27 BUN 4 L Creatinine 0.87 Calcium 8.3 L D Urine 12/14/20 Range/Units 00:40 Urine Color YELLOW Urine Appearance CLEAR Urine pH 6.0 (5.0-8.0) Ur Specific [place] >= 1.030 H (1.005-1.025) Urine Protein NEG (NEG-TRACE) MG/DL Urine Glucose (UA) NEG (NEG) MG/DL Assessment and Plan (1) Ulcerative colitis: Qualifiers: Ulcerative colitis location: unspecified ulcerative colitis location Digestive disease complication type: unspecified complication Qualified Code(s): K51.919 - Ulcerative colitis, unspecified with unspecified compl ications Status: Acute (2) Anemia: Status: Acute 35 YM with UC diagnosed April, on colonoscopy and treated with Mesalamine and Mesalamine enemas with partial control ofhis symptoms. Continued to have intermittent flares. Stopped taking medications end of August since he had no insurance. Noted recurrent symptoms for the past 2 months. Stool studies negative for C Diff, + fecal leucocytes likely due to colitis. RECOMMENDATIONS: 1. Start IV steroids (solumedrol 40 mg IV Q 12 hrly) and switch to PO once symptoms improve. PO Predisone taper at 40 mg PO daily and taper by 10mg every week over 4 weeks. 2. Continue IV antibiotics x 48 hrs and DC if stool cultures are negative. 3. Patient has a follow-up appointment with Dr. House on 12/25/2020 Procedures Date of Service Date of Service: 12/14/20
--- NOTE | 2020-12-14 17:05 | MHC.CLN ---
NUTRITION CONSULT CONSULT FOR DECREASED APPETITE AND WEIGHT LOSS. PRIOR WEIGHTS REVIEWED X 8 MONTHS AND SHOW WEIGHT OVERALL STABLE. PATIENT ATE LUNCH TODAY WITH SOME NAUSEA REPORTED. DX ULCERATIVE COLITIS FLARE. CONTINUE TO MONITOR FOR DIET TOLERANCE AND PO INTAKE.
[2020-12-15] VITALS (7 sets, daily range): BP systolic 108–130; BP diastolic 56–63; PULSE 72–100; RESP 17–20; TEMP 36.3–37; O2SAT 97–99
[2020-12-15 06:13] LABS: Hemoglobin 9.2 g/dl (14.0-18.0); Mean Corpuscular HGB Conc 34.1 g/dl (31.0-36.0); Mean Corpuscular Hemoglobin 30.4 pg (27.0-33.0); Mean Corpuscular Volume 89.1 fL (80-98); Mean Platelet Volume 8.8 fL (9.4-12.4); Platelet Count 660 X10*3/uL (160-400); Red Blood Count 3.03 X10*6/uL (4.60-5.80); Red Cell Distribution Width 13.2 % (11.0-16.0); White Blood Count 17.8 X10*3/uL (4.8-10.8)
[2020-12-15] MEDS: metroNIDAZOLE/NS 500 MG/100 ML PIGGYBACK 100 MG IV ×2 (06:24→15:35)
[2020-12-15] MEDS: Omeprazole 20 MG CAPSULE.DR PO ×2 (06:25→15:35)
[2020-12-15] MEDS: methylPREDNISolone Sod Succ 40 MG/ML VIAL IVPUSH ×2 (08:43→20:43)
[2020-12-15] MEDS: busPIRone HCl 10 MG TABLET PO ×2 (08:43→20:43)
[2020-12-15] MEDS: levoFLOXacin/D5W 750 MG/150 ML PIGGYBACK 100 MG IV (08:43)
--- NOTE | 2020-12-15 09:48 | HO.PM.IMPN ---
Subjective Subjective Date of Service: 12/15/20 Interval History: Uc flare Review of Systems Has some left-sided abdominal pain,mucousy stools with blood man improving Denies any? complaint of chest pain or shortness of breath? or fever or chills or nausea or vomiting or cough Denies any weakness or numbness. Physical Exam Vital Signs: Vital Signs: Last Vital Signs Temp 98.6 F 12/15/20 08:00 Pulse 72 12/15/20 08:00 Resp 20 12/15/20 08:00 BP 128/63 12/15/20 08:00 Pulse Ox 97 12/15/20 08:00 Body Mass Index 27.9 Appearance: Alert. ? Oriented X3.? no t in distress.? Ey es: Pupils equal, round and reactive to light.? Sclera nonicteric.? ENT: Pharynx normal.? Moist mucous membr anes. cvs: rrr, s1 [id number] , no murmu r res: clear to au scultation ,no rho nchii or wheezing abd: no rebound or guarding ,left lo wer abd pain , bs present. ext pulse s present , no cya nosis ,Gait well b alanced well coord inated. neuro: axo 3 , nonfocal. Objective Data Active Medications Acetaminophen (Acetaminophen 325 Mg Tablet) 650 mg PO Q6H PRN PRN Reason: Pain, Mild (Pain Scale 1-3) Buspirone HCl (Buspirone Hcl 10 Mg Tablet) 10 mg PO BID [facility] Last Admin: 12/15/20 08:43 Dose: 10 mg Documented by: [email or web address].[email or web address] Lactated Ringer's (Lr) 1,000 mls @ 80 mls/hr IVCONT .[id number] [facility] Last Infusion: 12/15/20 08:44 Dose: 0 mls/hr Documented by: [email or web address].COTEMA Levofloxacin (Levaquin) 750 mg in 150 mls @ 100 mls/hr IV Q24H [facility] Last Admin: 12/15/20 08:43 Dose: 100 mls/hr Documented by: THA.COTEMA Metronidazole (Flagyl) 500 mg in 100 mls @ 100 mls/hr IV Q8H [facility] Last Infusion: 12/15/20 07:24 Dose: 0 mls/hr Documented by: THA.COTEMA Methylprednisolone Sodium Succinate (Methylprednisolone Sod Succ 40 Mg/Ml Vial) 40 mg IVPUSH Q12H [facility] Last Admin: 12/15/20 08:43 Dose: 40 mg Documented by: FRANK Non-Formulary Medication (Mesalamine) 1 gm [place] BEDTIME [facility] Omeprazole (Omeprazole 20 Mg Capsule.) 20 mg PO BID@0630,1630 [facility] Last Admin: 12/15/20 06:25 Dose: 20 mg Documented by: MISAEL Ondansetron HCl (Ondansetron Hcl 4 Mg/2 Ml Vial) 4 mg IVPUSH Q8H PRN PRN Reason: Nausea and Vomiting Last Admin: 12/14/20 11:34 Dose: 4 mg Documented by: RAMON Oxycodone HCl (Oxycodone Hcl Immed Release 5 Mg Tablet) 5 mg PO Q6H PRN PRN Reason: Pain, Severe (Pain Scale 7-10) Pharmacy Consult (Consult Rx Perform Med Rec) 1 each MISCELLANE ONCE PRN PRN Reason: Consult order Sodium Chloride (0.9 % Sodium Chloride Flush 3 Ml Syringe) 3 ml IVFLUSH QSHIFT [facility] Last Admin: 12/15/20 07:08 Dose: Not Given Documented by: FRANK Non-Admin Reason: IV Running Labs CBC & Chem 7: 12/15/20 05:59 12/14/20 05:57 Labs: Laboratory Results - last 24 hr 12/15/20 05:59 MCV 89.1 MCH 30.4 MCHC 34.1 RDW 13.2 Plt Count 660 H MPV 8.8 L Absolute Nucleated RBC 0.000 Nucleated RBC % (auto) 0.0 Microbiology Microbiology Results: Microbiology 12/13/20 20:00 Blood Culture - Preliminary Blood - Venous No growth after 24 hours. 12/13/20 20:06 Blood Culture - Preliminary Blood - Venous No growth after 24 hours. Assessment and Plan (1) Anemia: Status: Acute (2) Ulcerative colitis: Status: Acute Assessment and Plan: 35-year-old male with past medical history of ulcerative colitis presents to the hospital with abdominal pain and bloody diarrhea 1. ulcerative colitis flare - has abdominal pain, diarrhea, and CT evidence of pancolitis Leukocytosis trending down, no fever - rule out infectious etiology: C diffneg , stool for wbc >10, stool cultures pending ?on IV antibiotics-levaquin/flagyl day2, oxycodone,d/w gi-started iv steriods advanced diet GI recommendation appreciated 2. acute blood loss anemia on ch: probbale due to ulcerative colitis h/h trending down to 9.1 range type and cross moniter cbc, omeprazole DVT prophylaxis:? SCDs and early ambulation the setting of bleeding with ulcerative colitis Quality Stroke Does the patient have a stroke diagnosis?: No VTE Prior VTE?: No VTE Risk Level:: Medical - moderate - high VTE Device Contraindication: N/A - Device Ordered VTE Drug Contraindication: Treatment Not Indicated
[2020-12-15] MEDS: Lactated Ringers 1,000 ML 80 ML IVCONT (13:08)
[2020-12-16] MEDS: metroNIDAZOLE/NS 500 MG/100 ML PIGGYBACK 100 MG IV ×4 (00:14→22:03)
[2020-12-16] MEDS: Lactated Ringers 1,000 ML 80 ML IVCONT ×2 (02:00→17:58)
[2020-12-16 04:00] VITALS: BP 128/58; PULSE 79; RESP 16; TEMP 37; O2SAT 97
[2020-12-16] MEDS: Omeprazole 20 MG CAPSULE.DR PO ×2 (06:11→15:11)
[2020-12-16 06:56] VITALS: BP 130/59; PULSE 66; RESP 18; TEMP 36.7; O2SAT 97
[2020-12-16] MEDS: busPIRone HCl 10 MG TABLET PO ×2 (08:19→19:51)
[2020-12-16] MEDS: methylPREDNISolone Sod Succ 40 MG/ML VIAL IVPUSH ×2 (08:19→18:27)
[2020-12-16] MEDS: levoFLOXacin/D5W 750 MG/150 ML PIGGYBACK 100 MG IV (08:19)
--- NOTE | 2020-12-16 11:22 | P.PNIM_ITS ---
Subjective Subjective Date of Service: 12/16/20 Interval History: Ulcerative colitis flare Review of Systems Abdominal pain seems to be improving in comparison to yesterday, but still stool with blood. Denies nausea ,vomiting, fever chills Physical Exam Vital Signs: Vital Signs: Last Vital Signs Temp 98.1 F 12/16/20 06:56 Pulse 66 12/16/20 06:56 Resp 18 12/16/20 06:56 BP 130/59 L 12/16/20 06:56 Pulse Ox 97 12/16/20 06:56 Body Mass Index 27.9 Appearance: Alert.? Oriented X3.? not in distress.? Eyes: Pupils equal, round and reactive to light.? Sclera nonicteric.? ENT: Pharynx normal.? Moist mucous membranes. cvs: rrr, [id number] , no murmur res: clear to auscultation ,no rhonchii or wheezing abd: no rebound or guarding ,left lower abd pain improving in comparison to yesterday , bs present. ext pulses present , no cyanosis ,Gait well balanced well coordinated. neuro: axo3 , nonfocal. Objective Data Active Medications Acetaminophen (Acetaminophen 325 Mg Tablet) 650 mg PO Q6H PRN PRN Reason: Pain, Mild (Pain Scale 1-3) Buspirone HCl (Buspirone Hcl 10 Mg Tablet) 10 mg PO BID [facility] Last Admin: 12/16/20 08:19 Dose: 10 mg Documented by: FORREST Lactated Ringer's (Lr) 1,000 mls @ 80 mls/hr IVCONT .[id number] [facility] Last Infusion: 12/16/20 10:48 Dose: 80 mls/hr Documented by: FORREST Levofloxacin (Levaquin) 750 mg in 150 mls @ 100 mls/hr IV Q24H [facility] Last Infusion: 12/16/20 10:04 Dose: 0 mls/hr Documented by: FORREST Metronidazole (Flagyl) 500 mg in 100 mls @ 100 mls/hr IV Q8H [facility] Last Infusion: 12/16/20 07:11 Dose: 0 mls/hr Documented by: FORREST Methylprednisolone Sodium Succinate (Methylprednisolone Sod Succ 40 Mg/Ml Vial) 40 mg IVPUSH Q12H [facility] Last Admin: 12/16/20 08:19 Dose: 40 mg Documented by: FORREST Patient Own Med ( Mesalamine 1,000 Mg Suppository) 1 each [place] BEDTIME [facility] Omeprazole (Omeprazole 20 Mg Capsule.) 20 mg PO BID@0630,1630 [facility] Last Admin: 12/16/20 06:11 Dose: 20 mg Documented by: MISAEL Ondansetron HCl (Ondansetron Hcl 4 Mg/2 Ml Vial) 4 mg IVPUSH Q8H PRN PRN Reason: Nausea and Vomiting Last Admin: 12/14/20 11:34 Dose: 4 mg Documented by: RAMON Oxycodone HCl (Oxycodone Hcl Immed Release 5 Mg Tablet) 5 mg PO Q6H PRN PRN Reason: Pain, Severe (Pain Scale 7-10) Pharmacy Consult (Consult Rx Perform Med Rec) 1 each MISCELLANE ONCE PRN PRN Reason: Consult order Sodium Chloride (0.9 % Sodium Chloride Flush 3 Ml Syringe) 3 ml IVFLUSH QSHIFT [facility] Last Admin: 12/16/20 07:11 Dose: Not Given Documented by: FORREST Non-Admin Reason: IV Running Labs CBC & Chem 7: 12/15/20 05:59 12/14/20 05:57 Microbiology Microbiology Results: Microbiology 12/13/20 20:00 Blood Culture - Preliminary Blood - Venous No growth after 48 hours. 12/13/20 20:06 Blood Culture - Preliminary Blood - Venous No growth after 48 hours. Assessment and Plan (1) Anemia: Status: Acute (2) Ulcerative colitis: Status: Acute Assessment and Plan: 35-year-old male with past medical history of ulcerative colitis presents to the hospital with abdominal pain and bloody diarrhea 1. ulcerative colitis flare - has abdominal pain, diarrhea, and CT evidence of pancolitis Leukocytosis trending down, no fever - rule out infectious etiology: C diffneg , stool for wbc >10, stool cultures pending, blood culture neg@48 hrs ?on IV antibiotics-levaquin/flagyl day3, oxycodone,GI once stool cultures to be back prior to starting steroids - further GI recommendation appreciated 2. acute blood loss anemia on : probbale due to ulcerative colitis h/h trending down to 9.1 range type and cross moniter cbc, omeprazole DVT prophylaxis:? SCDs and early ambulation the setting of bleeding with ulcerative colitis Quality Stroke Does the patient have a stroke diagnosis?: No VTE Prior VTE?: No VTE Risk Level:: Medical - moderate - high VTE Device Contraindication: N/A - Device Ordered VTE Drug Contraindication: Treatment Not Indicated
[2020-12-16 11:50] VITALS: BP 108/56; PULSE 85; RESP 18; TEMP 37.1; O2SAT 97
[2020-12-16 15:41] VITALS: BP 122/63; PULSE 93; RESP 18; TEMP 37.2; O2SAT 96
[2020-12-16 20:00] VITALS: BP 120/60; PULSE 100; RESP 18; TEMP 37.2; O2SAT 97
[2020-12-16 23:29] VITALS: BP 114/59; PULSE 72; RESP 16; TEMP 36.8; O2SAT 97
[2020-12-17] MEDS: 0.9 % Sodium Chloride Flush 3 ML SYRINGE IVFLUSH ×2 (01:18→08:38)
[2020-12-17 04:00] VITALS: BP 126/56; PULSE 65; RESP 16; TEMP 36.9; O2SAT 99
[2020-12-17] MEDS: methylPREDNISolone Sod Succ 40 MG/ML VIAL IVPUSH (06:15)
[2020-12-17] MEDS: Omeprazole 20 MG CAPSULE.DR PO (06:15)
[2020-12-17] MEDS: metroNIDAZOLE/NS 500 MG/100 ML PIGGYBACK 100 MG IV (06:15)
[2020-12-17 07:20] VITALS: BP 119/67; PULSE 80; RESP 18; TEMP 36.4; O2SAT 98
[2020-12-17] MEDS: busPIRone HCl 10 MG TABLET PO (08:37)
[2020-12-17] MEDS: levoFLOXacin/D5W 750 MG/150 ML PIGGYBACK 100 MG IV (08:37)
--- NOTE | 2020-12-17 09:52 | MHC.CM.PN ---
CM INFORMED PT HAD BEEN UNABLE TO OBTAIN ONE OF HIS MEDICATIONS FOR [facility] [employer]. CM MET WITH PT AND HIS WHO REPORTED THE PHARMACY HAD BEEN UNABLE TO PROVIDE THE MESALAMINE 500mg CAPSULES DUE TO NOT HAVING THEM IN STOCK. TRAVIS CONTACTED PTS PREFERRED PHARMACY, [facility] [place] ([phone]) WHO REPORTED THEY ORDERED THE MEDICATION ON 12/13/20 HOWEVER IT WAS STILL NOT IN STOCK. CM INFORMED THEY EXPECTED TO HAVING IT SOON HOWEVER IF THE PT WAS DISCHARGING TODAY, HE COULD GO TO EITHER [facility] IN [place] OR [facility] IN [place] THEY BOTH HAVE THE MED IN STOCK. TRAVIS INFORMED THE PT DID NOT NEED A NEW Rx WHICHEVER PHARMACY HE WENT TO WOULD BE ABLE TO PULL IT FROM THE ELECTRONIC SYSTEM PT AND INFORMED OF ABOVE INFO. PT WILL DC HOME TODAY WITH NO SERVICES. TO TRANSPORT
--- NOTE | 2020-12-17 10:49 | P.DS_ITS ---
DS: Providers Provider Date of Service: 12/17/20 Date of admission: 12/13/20 21:26 Date of discharge: 12/17/20 Primary care physician: Jose Stephen PA-C Admitting clinician: Alison Branham Consults: 12/14/20 07:34 Consult to Gastroenterology Routine Consulting Provider: Simba Ortiz Reason for consultation: ulcerative colitis /anemia Has provider been notified: No DS: Diagnosis Discharge Diagnosis (1) Anemia: Status: Acute (2) Ulcerative colitis: Status: Acute DS: Summary Hospital Course Hospital Course: 35-year-old male with past medical history of ulcerative colitis who presents to the hospital with complaints of abdominal pain, and bloody diarrhea for the past 1-2 months.? Patient reports he is also experiencing abdominal pain.? The pain is diffuse, cramping, intermittent, nonradiating, no alleviating or exacerbating factors.? Patient reports that he went to his PCP today, had blood work done, he was called few hours later and was sent to the hospital due to abnormal labs. Patient currently denies any headache, no change in vision, no chest pain, no palpitations, no urinary symptoms and no lower extremity edema.? No numbness tingling or weakness On arrival to the ED hemodynamically stable with no significant abnormal vitals Labs reviewed show hemoglobin of 11.3, elevated CRP and ESR, elevated lipase, Otherwise unremarkable Abdominal CT shows diffuse pancolitis, enlarged lymph nodes throughout the massive:? Most prominent in the left colon Case was discussed with GI, patient will be admitted for further management. Hospital course: Patient was admitted for assertive colitis flare-started on IV antibiotics and IV steroids-currently seems asymptomatic and no more bleeding with the stool. Monitor CBC with GI and PCP outpatient. GI recommended for prednisone taper upon discharge given, follow-up with GI for further management., patient already has appointment early next month. Leukocytosis trending down, blood culture negative. Patient is asymp Dr Ricky post MD. stool WBCs probably related to was to colitis. C diff negative.received 3-4 days antibiotics, d/w since patient is symptomatic and probably above is related to ulcerative colitis flare than infection. Will DC antibiotics. Patient is to discussed with GI-for further medication arrangement issue for ulcerative colitis. anemia of acute blood loss possible : s/p 2 prbc : h/h 9.2 range . moniter cbc with GI. Above management discussed with the patient in detail length understand and in agreement with the above plan, time spent 50 minutes and 50% time spent on counseling. Significant findings: As above. Procedures performed: None. Treatment and response: As above. Complications: None. Time Spent with Patient Time attestation: Total time spent providing and/or coordinating discharge services: Discharge coordination time: Greater than 30 minutes Quality: Stroke Does the patient have a stroke diagnosis?: No Physical Exam Vital Signs: Vital Signs: Last Vital Signs Temp 97.5 F 12/17/20 07:20 Pulse 80 12/17/20 07:20 Resp 18 12/17/20 07:20 BP 119/67 12/17/20 07:20 Pulse Ox 98 12/17/20 07:20 Body Mass Index 27.9 Appearance: Alert.? Oriented X3.? not in distress.? Eyes: Pupils equal, round and reactive to light.? Sclera nonicteric.? ENT: Pharynx normal.? Moist mucous membranes. cvs: rrr, [id number] , no murmur res: clear to auscultation ,no rhonchii or wheezing abd: no rebound or guarding ,left lower abd pain improving in comparison to yesterday , bs present. ext pulses present , no cyanosis ,Gait well balanced well coordinated. neuro: axo3 , nonfocal. DS: Data Data Completed and Pending Labs on day of discharge: Preliminary micro results at discharge 12/13/20 20:00 Blood Culture - Preliminary Blood - Venous No growth after 48 hours. 12/13/20 20:06 Blood Culture - Preliminary Blood - Venous No growth after 48 hours. Additional Comments Additional comments: abd ct: IMPRESSION: Diffuse pancolitis. ? Enlarged lymph nodes throughout the mesocolon most prominent in the left colon.? Discharge Plan Discharge Patient Disposition: Home, Self-Care Discharge Diagnosis: Ulcerative colitis flare. Referrals: Jose Stephen PA-C [Primary Care Provider] - 1 Week Discharge Medications: New prednisone 20 mg tablet See Taper mg PO DAILY Qty: 35 RF: 0 Continued buspirone 10 mg tablet 10 mg PO BID RF: 0 prednisone 10 mg tablet 10 mg PO DAILY 9 Days Qty: 18 RF: 0 mesalamine 1,000 mg suppository 1 g LA BEDTIME 30 Days Qty: 30 RF: 0 mesalamine 500 mg capsule, extended release 1,500 mg PO ONCE 30 Days Qty: 90 RF: 0 ondansetron 8 mg tablet,disintegrating 8 mg PO Q12H 15 Days Qty: 30 RF: 0 omeprazole 20 mg capsule,delayed release(DR/EC) 20 mg PO DAILY 30 Days Qty: 30 RF: 0 Discharge Orders: Discharge Order (Routine); Ordered 12/17/20 Ordered By: Alison Branham Diet: advance to usual diet Activity on Discharge: As tolerated Stand Alone Forms: Patient Portal Discharge page Other Ambulatory Orders: Complete Blood Count no Diff (Routine) Timeframe: 1 Week Facility: [facility] - Location: Laboratory Ordered By: Alison Branham Care Plan Goals: Patient was admitted for assertive colitis flare-started on IV antibiotics and IV steroids-currently seems asymptomatic and no more bleeding with the stool. Monitor CBC with GI and PCP outpatient. GI recommended for prednisone taper upon discharge given, follow-up with GI for further management., patient already has appointment early next month. Leukocytosis trending down, blood culture negative. Patient is asymptomatic, stool WBCs probably related to was to colitis. C diff negative.received 3-4 days antibiotics, d/w since patient is symptomatic and probably above is related to ulcerative colitis flare than infection. Will DC antibiotics. Health Concerns: As above. Plan of Treatment: As above. Assessment: As above. Discharge Date/Time: 12/17/20 12:57
[2020-12-17 12:00] VITALS: BP 123/63; PULSE 96; RESP 18; TEMP 37; O2SAT 98
== END 2020-12-17 12:57 | disposition home or self-care (01) | DRG 245 ==
LOC: HO.ED 20:36 → HO.EDOVER 21:38 → HO.S3 12-14 13:03
PROVIDERS: Admitting Provider Internal Medicine; Emergency Provider Emergency Medicine; PCP Physician Assistant; Visit Provider Internal Medicine
DX: K51.90 Ulcerative colitis, unspecified, without complications (principal); D62 Acute posthemorrhagic anemia; Z20.822 Contact with and (suspected) exposure to COVID-19; Z91.120 Patient's intentional underdosing of medication regimen due to financial hardship; Z87.891 Personal history of nicotine dependence; Z79.899 Other long term (current) drug therapy
CPT/HCPCS: 36415; 74176; 80048; 81003; 82272; 82607; 82728; 82746; 83540; 83605; 85014; 85018; 85025; 85027; 86850; 86900; 86901; 87040; 87493; 87635; 89055; 96361; 96374; 96375; 99285; J1650; J1956; J2405; J2920

== ENCOUNTER → 2020-12-25 13:07 | Outpatient (BNVA) | payer OTHER, SELFPAY | PROVIDERS: PCP Physician Assistant; Visit Provider Internal Medicine Gastroenterology ==

== ENCOUNTER 2020-12-27 10:17 | Outpatient (REF) | payer OTHER, SELFPAY ==
[2020-12-27 11:12] LABS: Basophils Absolute Auto 0.1 X10*3/uL (0.0-0.2); Basophils Percent Auto 0.4 % (0-2); Eosinophils Absolute Auto 1.1 X10*3/uL (0.0-0.4); Eosinophils Percent Auto 4.9 % (0-4); Hemoglobin 10.5 g/dl (14.0-18.0); Imm Gran Abs Auto 0.19 X10*3/uL (0.00-0.03); Imm Gran Pct Auto 0.9 % (0.0-0.4); Lymphocytes Absolute Auto 3.9 X10*3/uL (1.2-4.9); Lymphocytes Percent Auto 17.8 % (20-40); MANUAL DIFF FLAG SCAN; Mean Corpuscular HGB Conc 31.8 g/dl (31.0-36.0); Mean Corpuscular Hemoglobin 28.4 pg (27.0-33.0); Mean Corpuscular Volume 89.2 fL (80.0-98.0); Mean Platelet Volume 9.1 fL (9.4-12.4); Monocytes Absolute Auto 1.7 X10*3/uL (0.1-1.2); Neutrophils Absolute Auto 14.74 x10*3/uL (2.0-8.3); Platelet Count 936 X10*3/uL (160-400); Red Cell Distribution Width 13.2 % (11.0-16.0); SCAN SMEAR FLAG 1; White Blood Count 21.7 X10*3/uL (4.8-10.8)
[2020-12-27 11:35] LABS: SLIDE REVIEW VERIFIED
[2020-12-27 11:53] LABS: Erythrocyte Sedimentation Rate 16 MM/HR (0-15)
[2020-12-27 11:58] LABS: Alanine Aminotransferase 18 U/L (0-40); Albumin Level 3.6 g/dL (3.5-5.0); Alkaline Phosphatase 54 U/L (39-117); Anion Gap 16 (12-20); Aspartate Amino Transferase 30 U/L (5-37); Bilirubin Total 0.4 mg/dL (0.0-1.0); Blood Urea Nitrogen 14 mg/dL (9-16); C Reactive Protein 0.42 mg/dL (< or = 0.50); Calcium 9.1 mg/dL (8.4-10.2); Carbon Dioxide 25 mmol/L (22-29); Chloride 103 mmol/L (96-108); Estimated Glomerular Filt Rate > 60; Glucose Random 84 mg/dL (60-115); Sodium 139 mmol/L (135-145); Total Protein 6.7 g/dL (6.5-8.0)
[2020-12-27 12:02] LABS: HBsAGNum1 0.19 S/CO (0.00-0.99); Hepatitis B Surface Antigen Negative (Negative)
[2020-12-27 12:08] LABS: Ferritin 58 ng/mL (20-250); Vitamin D 25-OH Total 12.2 ng/mL (>30)
[2020-12-27 12:17] LABS: HBS Num1 223.67 mIU/mL (0-7.99); HBc Num1 0.03 S/CO (0.00-0.79); Hepatitis B Core Antibody Nonreactive (Nonreactive); ~HepC Num1 0.12 S/CO (0.00-0.79); ~Hepatitis B Surface Antibody REACTIVE (Nonreactive); ~Hepatitis C Antibody Nonreactive (Nonreactive)
[2020-12-28 04:02] LABS: Hepatitis A Antibody IgM 0.13 Index (0-0.79); ~Hepatitis A Antibody IgM Nonreactive (Nonreactive)
[2020-12-29 18:57] LABS: TS Negative Control Passed; TS Panel A 0; TS Panel B 0; TS Positive Control Passed; TSpotTB Negative (Negative)
[2020-12-31 04:12] LABS: Zinc 98 mcg/dL (60-130)
[2021-01-02 08:24] LABS: Prometheus TPMT Enzyme SEE SEPARATE REPORT
== END 2020-12-27 10:18 | disposition home or self-care (01) ==
LOC: HO.LAB 10:17
PROVIDERS: Visit Provider Internal Medicine Gastroenterology
DX: K51.919 Ulcerative colitis, unspecified with unspecified complications (principal); K75.81 Nonalcoholic steatohepatitis (NASH)
CPT/HCPCS: 36415; 80053; 82306; 82728; 84630; 85025; 85652; 86140; 86481; 86704; 86706; 86709; 86803; 87340

== ENCOUNTER 2021-01-08 | Outpatient (REF) | payer OTHER, SELFPAY ==
[2021-01-15 03:27] LABS: Calprotectin, Fecal 2250 mcg/g
== END 2021-01-08 00:01 | disposition home or self-care (01) ==
LOC: HO.LNP
PROVIDERS: Visit Provider Internal Medicine Gastroenterology
DX: K51.90 Ulcerative colitis, unspecified, without complications (principal)
CPT/HCPCS: 83993

== ENCOUNTER → 2021-01-16 10:48 | Outpatient (BNVA) | payer SELFPAY | PROVIDERS: PCP Physician Assistant; Visit Provider Physician Assistant Medical | DX: Z02.79 Encounter for issue of other medical certificate (principal) ==

== ENCOUNTER → 2021-01-24 09:03 | Outpatient (BNVA) | payer OTHER, SELFPAY | PROVIDERS: PCP Physician Assistant; Visit Provider Dietitian, Registered | DX: K51.919 Ulcerative colitis, unspecified with unspecified complications (principal) | CPT/HCPCS: 97802 ==

== ENCOUNTER → 2021-01-30 12:24 | Outpatient (REF) | payer OTHER, SELFPAY ==
--- NOTE | 2021-01-30 12:30 | ECG_ITS ---
Test Reason : anemia Blood Pressure : / mmHG Vent. Rate : 067 BPM Atrial Rate : 067 BPM P-R Int : 134 ms QRS Dur : 090 ms QT Int : 364 ms P-R-T Axes : 000 058 029 degrees QTc Int : 384 ms Normal sinus rhythm Normal ECG When compared with ECG of 04-FEB-2011 23:57, No significant change was found Referred By: Jennifer Dobbs Electronically Signed By:Darshan Lomeli
[2021-01-30 13:33] LABS: Hematocrit 27.9 % (42.0-52.0); Hemoglobin 8.3 g/dl (14.0-18.0); Mean Corpuscular HGB Conc 29.7 g/dl (31.0-36.0); Mean Corpuscular Hemoglobin 24.9 pg (27.0-33.0); Mean Corpuscular Volume 83.8 fL (80.0-98.0); Mean Platelet Volume 9.2 fL (9.4-12.4); Platelet Count 980 X10*3/uL (160-400); Red Blood Count 3.33 X10*6/uL (4.60-5.80); Red Cell Distribution Width 14.3 % (11.0-16.0); White Blood Count 18.1 X10*3/uL (4.8-10.8)
[2021-01-30 14:05] LABS: Anion Gap 12 (12-20); Blood Urea Nitrogen 10 mg/dL (9-16); Calcium 9.5 mg/dL (8.4-10.2); Carbon Dioxide 27 mmol/L (22-29); Chloride 107 mmol/L (96-108); Estimated Glomerular Filt Rate > 60; Glucose Random 89 mg/dL (60-115); Potassium 4.8 mmol/L (3.3-5.1); Sodium 141 mmol/L (135-145)
[2021-01-30 14:32] LABS: TSH reflex Free T4 2.71 uIU/mL (0.32-4.0)
== END ==
LOC: HO.CARD 12:24
PROVIDERS: PCP Physician Assistant; Visit Provider Nurse Practitioner Family
DX: D64.9 Anemia, unspecified (principal); R06.02 Shortness of breath; R51.9 Headache, unspecified; F41.9 Anxiety disorder, unspecified
CPT/HCPCS: 36415; 80048; 84443; 85027; 93005

== ENCOUNTER 2021-01-31 12:11 | Outpatient (REF) | payer OTHER, SELFPAY | END 2021-01-31 12:12 | disposition home or self-care (01) | LOC: HO.MDS 12:11 | PROVIDERS: PCP Physician Assistant; Visit Provider Internal Medicine Gastroenterology | DX: K51.90 Ulcerative colitis, unspecified, without complications (principal) | CPT/HCPCS: 96365; J3380 ==

== ENCOUNTER 2021-02-14 12:52 | Outpatient (REF) | payer OTHER, SELFPAY ==
[2021-02-14 15:57] LABS: COVID-19 Test Positive (Negative)
== END 2021-02-14 12:53 | disposition home or self-care (01) ==
LOC: HO.LAB 12:52
PROVIDERS: Visit Provider Internal Medicine
DX: Z20.822 Contact with and (suspected) exposure to COVID-19 (principal)
CPT/HCPCS: 36415; 87635; C9803

== ENCOUNTER 2021-03-04 13:27 | Outpatient (REF) | payer OTHER, SELFPAY | END 2021-03-04 13:28 | disposition home or self-care (01) | LOC: HO.MDS 13:27 | PROVIDERS: PCP Physician Assistant; Visit Provider Internal Medicine Gastroenterology | DX: K51.90 Ulcerative colitis, unspecified, without complications (principal) | CPT/HCPCS: 96365; J3380 ==

== ENCOUNTER 2021-03-29 14:53 | Outpatient (REF) | payer OTHER, SELFPAY | END 2021-03-29 14:54 | disposition home or self-care (01) | LOC: HO.MDS 14:53 | PROVIDERS: PCP Physician Assistant; Visit Provider Internal Medicine Gastroenterology | DX: K51.90 Ulcerative colitis, unspecified, without complications (principal) | CPT/HCPCS: 96365; J3380 ==

== ENCOUNTER 2021-05-24 08:39 | Outpatient (REF) | payer OTHER, SELFPAY | END 2021-05-24 08:40 | disposition home or self-care (01) | LOC: HO.MDS 08:39 | PROVIDERS: PCP Physician Assistant; Visit Provider Internal Medicine Gastroenterology | DX: K51.90 Ulcerative colitis, unspecified, without complications (principal) | CPT/HCPCS: 96365; J3380 ==

== ENCOUNTER 2021-07-05 10:17 | Outpatient (REF) | payer OTHER, SELFPAY ==
[2021-07-05 11:14] LABS: Hematocrit 33.3 % (42.0-52.0); Hemoglobin 9.8 g/dl (14.0-18.0); Mean Corpuscular HGB Conc 29.4 g/dl (31.0-36.0); Mean Corpuscular Hemoglobin 20.3 pg (27.0-33.0); Mean Corpuscular Volume 69.1 fL (80.0-98.0); Mean Platelet Volume 9.2 fL (9.4-12.4); Platelet Count 665 X10*3/uL (160-400); Red Blood Count 4.82 X10*6/uL (4.60-5.80); White Blood Count 7.8 X10*3/uL (4.8-10.8)
[2021-07-05 11:30] LABS: Estimated Average Glucose 114 mg/dL; Hemoglobin A1c % 5.6 %
[2021-07-05 11:56] LABS: Alanine Aminotransferase 13 U/L (0-40); Albumin Level 4.4 g/dL (3.5-5.0); Alkaline Phosphatase 62 U/L (39-117); Anion Gap 11 (12-20); Aspartate Amino Transferase 17 U/L (5-37); Bilirubin Total 0.6 mg/dL (0.0-1.0); Blood Urea Nitrogen 14 mg/dL (9-16); Calcium 9.8 mg/dL (8.4-10.2); Carbon Dioxide 26 mmol/L (22-29); Chloride 105 mmol/L (96-108); Estimated Glomerular Filt Rate > 60; Glucose Fasting 95 mg/dL (60-99); Iron 21 mcg/dL (45-160); Percent Iron Saturation 4 % (15-50); Potassium 4.6 mmol/L (3.3-5.1); Sodium 137 mmol/L (135-145); Total Iron Binding Capacity 486 mcg/dL (228-428); Total Protein 7.7 g/dL (6.5-8.0); Unsaturated Iron Binding 465 ug/dL
== END 2021-07-05 10:18 | disposition home or self-care (01) ==
LOC: HO.LAB 10:17
PROVIDERS: PCP Physician Assistant; Visit Provider Physician Assistant
DX: Z13.1 Encounter for screening for diabetes mellitus (principal); K51.919 Ulcerative colitis, unspecified with unspecified complications; D50.9 Iron deficiency anemia, unspecified
CPT/HCPCS: 36415; 80053; 83036; 83540; 85027

== ENCOUNTER 2021-07-19 09:59 | Outpatient (REF) | payer OTHER, SELFPAY | END 2021-07-19 10:00 | disposition home or self-care (01) | LOC: HO.MDS 09:59 | PROVIDERS: PCP Physician Assistant; Visit Provider Internal Medicine Gastroenterology | DX: K51.90 Ulcerative colitis, unspecified, without complications (principal) | CPT/HCPCS: 96365; J3380 ==

== ENCOUNTER 2021-11-11 07:38 | Outpatient (REF) | payer OTHER, SELFPAY | END 2021-11-11 07:39 | disposition home or self-care (01) | LOC: HO.MDS 07:38 | PROVIDERS: Visit Provider Internal Medicine Gastroenterology | DX: K51.90 Ulcerative colitis, unspecified, without complications (principal) | CPT/HCPCS: 96365; J3380 ==

== ENCOUNTER 2022-01-14 08:21 | Outpatient (REF) | payer OTHER, SELFPAY | END 2022-01-14 08:22 | disposition home or self-care (01) | LOC: HO.MDS 08:21 | PROVIDERS: Visit Provider Internal Medicine Gastroenterology | DX: K51.90 Ulcerative colitis, unspecified, without complications (principal) | CPT/HCPCS: 96365; J3380 ==

== ENCOUNTER 2022-04-29 07:56 | Outpatient (REF) | payer OTHER, SELFPAY ==
[2022-04-29 08:45] LABS: Hematocrit 44.2 % (42.0-52.0); Hemoglobin 14.8 g/dl (14.0-18.0); Mean Corpuscular HGB Conc 33.5 g/dl (31.0-36.0); Mean Corpuscular Hemoglobin 30.3 pg (27.0-33.0); Mean Corpuscular Volume 90.4 fL (80.0-98.0); Platelet Count 425 X10*3/uL (160-400); Red Blood Count 4.89 X10*6/uL (4.60-5.80); Red Cell Distribution Width 12.5 % (11.0-16.0); White Blood Count 8.6 X10*3/uL (4.8-10.8)
[2022-04-29 09:14] LABS: Alanine Aminotransferase 21 U/L (0-40); Albumin Level 4.2 g/dL (3.5-5.0); Alkaline Phosphatase 56 U/L (39-117); Anion Gap 11 (12-20); Aspartate Amino Transferase 18 U/L (5-37); Bilirubin Total 0.6 mg/dL (0.0-1.0); Blood Urea Nitrogen 10 mg/dL (9-16); Calcium 9.8 mg/dL (8.4-10.2); Carbon Dioxide 30 mmol/L (22-29); Chloride 105 mmol/L (96-108); Estimated Glomerular Filt Rate > 60; Glucose Fasting 86 mg/dL (60-99); Iron 103 mcg/dL (45-160); Percent Iron Saturation 30 % (15-50); Potassium 4.3 mmol/L (3.3-5.1); Sodium 142 mmol/L (135-145); Total Iron Binding Capacity 348 mcg/dL (228-428); Total Protein 6.8 g/dL (6.5-8.0); Unsaturated Iron Binding 245 ug/dL
[2022-04-29 09:32] LABS: TSH reflex Free T4 3.51 uIU/mL (0.32-4.0)
== END 2022-04-29 07:57 | disposition home or self-care (01) ==
LOC: HO.LAB 07:56
PROVIDERS: PCP Physician Assistant; Visit Provider Physician Assistant
DX: D50.9 Iron deficiency anemia, unspecified (principal); K51.919 Ulcerative colitis, unspecified with unspecified complications; Z13.29 Encounter for screening for other suspected endocrine disorder; Z13.1 Encounter for screening for diabetes mellitus
CPT/HCPCS: 36415; 80053; 83540; 84443; 85027

== ENCOUNTER 2022-05-05 11:28 | Outpatient (REF) | payer OTHER, SELFPAY | END 2022-05-05 11:29 | disposition home or self-care (01) | LOC: HO.MDS 11:28 | PROVIDERS: Visit Provider Internal Medicine Gastroenterology | DX: K51.90 Ulcerative colitis, unspecified, without complications (principal) | CPT/HCPCS: J3380 ==

== ENCOUNTER 2022-11-15 15:31 | Inpatient (IN) | payer OTHER, SELFPAY ==
--- NOTE | ~2022-11-15 | CT_ITS ---
EXAMINATION: CT abdomen pelvis wo IV con CLINICAL INFORMATION: Reason for Exam abd pain with hx of UC COMPARISON: Prior CT 2020 TECHNIQUE: Multidetector volumetric imaging was performed from the superior aspect of the liver through the pubic symphysis , noncontrasted study. Sagittal and coronal reformatted images were obtained on the technologist's workstation. This CT examination was performed using dose optimization techniques as appropriate, variously including the following: *Automated exposure control *Adjustment of mA and/or kV according to patient size (this includes techniques or standardized protocols for targeted exams where dose is matched to indication/reason for exam; i.e. extremities or head) *Use of iterative reconstruction technique DLP: 590 mGy-cm FINDINGS: LOWER THORAX: Included lung bases are clear. HEPATOBILIARY: No focal hepatic lesions. No biliary ductal dilatation. GALLBLADDER: Gallbladder unremarkable. SPLEEN: Spleen is normal in size. PANCREAS: No focal mass or ductal dilatation. STOMACH AND GASTROINTESTINAL TRACT: Stomach is grossly unremarkable. There is circumferential wall thickening of the transverse and descending colon as well as the sigmoid colon the attenuation of the mucosa is low, with very mild diffuse pericolic fat stranding, although nonspecific CT finding however is compatible with colitis including ulcerative colitis. There is no evidence of bowel perforation. No CT evidence of appendicitis. ADRENALS: No adrenal nodules. KIDNEYS/URETERS: No hydronephrosis, stones or solid mass lesions. URINARY BLADDER: Partially decompressed. PELVIC VISCERA: Unremarkable PERITONEUM: No free air or fluid. LYMPH NODES: No lymphadenopathy. VASCULAR:Abdominal aorta normal in size, no aneurysm found. BONES, ABDOMINAL WALL AND SOFT TISSUES: Age-appropriate changes of the spine and skeletal system, no destructive osteolytic or osteosclerotic bone lesion found CT/CT abdomen pelvis wo IV con IMPRESSION: * There is circumferential wall thickening of the transverse and descending colon as well as the sigmoid colon, the attenuation of the mucosa is low, with very mild pericolic fat stranding, although nonspecific CT finding however is compatible with colitis including ulcerative colitis. There is no evidence of bowel perforation. * No lymphadenopathy. No free air or fluid.
[2022-11-15 15:41] VITALS: BP 131/81; PULSE 118; RESP 16; TEMP 37.1; O2SAT 96; BMI 33.0
--- NOTE | 2022-11-15 15:45 | ED_ITS ---
HPI - Nausea/Vomiting/Diarrhea General Chief complaint: Abdominal Pain Stated complaint: Abdominal pain, bleeding Time Seen by Provider: 11/15/22 17:38 Source: patient Mode of arrival: ambulatory Limitations: no limitations History of Present Illness HPI Narrative: 37-year-old male with history of ulcerative colitis came in with diffuse abdominal pain for the past few days with urgency of defecation with bright red blood and diarrhea for the past few days, patient stated that his typical presentation for ulcerative colitis. Patient follow-up with Dr. Dove and he is taking mesalamine for his ulcerative colitis. Related Data Previous Rx's Medication Instructions Recorded terbinafine HCl 1 % topical cream 1 appl topical BID 30 days #30 06/19/21 grams mesalamine 1,000 mg rectal 1,000 mg RI BEDTIME #30 supp 09/30/21 suppository vedolizumab 300 mg intravenous 300 mg IV DIRECTED 56 days #1 ea 03/04/22 solution (Entyvio) mesalamine 0.375 gram 1.5 g (4 x 0.375 gram) PO QAM 90 03/20/22 capsule,extended release 24 hr days #360 caps sildenafil 100 mg tablet 100 mg PO DAILY PRN sexual 09/29/22 activity 20 days #20 tabs Allergies Allergy/AdvReac Type Severity Reaction Status Date / Time No Known Allergies Allergy Verified 11/15/22 15:41 Review of Systems 2 Review of Systems: All other systems are reviewed and are negative Constitutional: Reports as per HPI and Reports no additional constitutional complaints Eyes: Reports as per HPI and Reports no additional eye complaints Reports system reviewed and no additional complaints, except as documented Cardiovascular: Reports as per HPI and Reports no additional cardiovascular complaints Respiratory: Reports as per HPI and Reports no additional respiratory complaints Gastrointestinal: Reports as per HPI and Reports no additional gastrointestinal complaints Genitourinary: Reports no additional female genitourinary complaints Musculoskeletal: Reports no additional musculoskeletal complaints Skin/Breast: Reports system reviewed and no additional complaints, except as docu Psychiatric: Reports no additional psychiatric complaints Endocrine: Reports no additional endocrine complaints Hematologic/Lymphatic: Reports no additional hematologic/lymphatic complaints Allergic/Immunologic: Reports no additional allergic/immunologic complaints Reports system reviewed and no additional complaints, except as documented and Reports Abnormal speech present PMFSH Past Medical History Medical History Ulcerative colitis Surgical History H/O colonoscopy Family History Family History Father Diabetes Hypertension Mother Tachycardia Daughter In good health Daughter In good health Sister In good health Sister In good health Sister In good health Maternal Grandfather Myocardial infarction Maternal Aunt Stroke Maternal Grandmother Alzheimer disease Social History Social History Household Members: Significant Other and Children Housing: Apartment Do you presently have visiting nurse or other home services: No Alcohol intake: current Alcohol intake frequency: holidays/special occasions only Patient Tobacco Use Status: Former Tobacco user Tobacco use type: Cigarette Years Smoked: 2017 Smoked in Last 30 Days: Yes e-Cigarette/Vaping Use: Never Used Second Hand Smoke Exposure: No Use of substances other than those prescribed or required for medical reasons: No Advance Directives: Yes Advance Directives on File: Yes Advance Directives Date on File: 12/13/20 service: No Current occupational status: employed 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[employer] Cognitive needs: No Hearing needs: No Vision needs: No Physical Exam 2 Vital Signs: Vital Signs: Last Vital Signs Temp 98.6 F 11/15/22 18:48 Pulse 82 11/15/22 18:48 Resp 17 11/15/22 18:48 BP 101/60 11/15/22 18:48 Pulse Ox 99 11/15/22 18:48 O2 Del Method Room Air 11/15/22 18:48 BMI result Body Mass Index 33.0 Vital signs have been reviewed and appear to be correct. Blood pressure elevated. Heart rate normal. Respiratory rate normal. Temperature normal. Oxygen saturation normal. Appearance: Alert. Oriented X3. No acute distress. Head: Normal external exam. Normocephalic. Atraumatic. No Pham signs noted. No raccoon eyes noted Eyes: PERRLA. EOMI. Conjunctiva and sclera normal. Eyelids normal. ENT: TM's Normal. Pharynx normal. Uvula midline. Moist mucous membranes. No trismus noted. No drooling noted. No muffled voice noted. Neck: Normal inspection. Neck supple. FROM. No adenopathy. Thyroid Normal. No meningeal signs. No neck mass noted. CVS: Normal heart rate and rhythm. Heart sound normal. No murmurs noted. Pulses normal throughout. Respiratory: No respiratory distress. Painless inspiration. Breath sounds normal. No wheezes/rales/rhonchi noted. Chest nontender. No accessory muscle usage noted or decreased air movement noted. Abdomen: Soft and nontender. Bowel sounds normal in all 4 quadrants. No distention noted. No organomegaly noted. No visible injury noted. Back: No CVA tenderness. Full range of motion noted. Skin: Skin warm and dry. Normal skin color. Normal skin turgor. No rashes/lesions/lacerations noted. Extremities: No lower extremity edema. Extremities exhibit normal range of motion. Extremities nontender. Neuro: Oriented X 3. Cranial nerve exam: II-XII are grossly intact No motor deficit. No sensory deficit. Reflexes normal. Course Course Course Narrative: This is an RME: Additional HPI, ROS, PE not included below will be deferred to primary provider. This is a 37-year-old male, with a past medical history of ulcerative colitis, presenting to the emergency department for evaluation of ? Ulcerative colitis flare. Patient reports couple days ago, he developed some diffuse abdominal pain, with fecal urgency. He reports approximately 8 bowel movements per day, bright red blood and most recent bout of diarrhea with mucus. He is endorsing some nausea and dizziness. Patient tachycardic at 118, other vital signs within normal limits. Plan: Labs Medications Administered Discontinued Medications Generic Name Dose Route Start Last Admin Trade Name Freq PRN Reason Stop Dose Admin Sodium Chloride 1,000 mls @ 999 mls/hr 11/15/22 17:39 11/15/22 17:57 Ns IV 11/15/22 18:39 999 mls/hr .Q1H1M ONE Administration Methylprednisolone Sodium Succinate 125 mg 11/15/22 18:02 11/15/22 18:28 Methylprednisolone Sod Succ 125 Mg/2 Ml Vial IVPUSH 11/15/22 18:03 125 mg ONCE ONE Administration Medical Decision Making Medical Decision Making [facility] Narrative: 730 pm Patient's history of ulcerative colitis diagnosed in 2018 after colonoscopy been on mesalamine with frequent flares up started on Entyvio last year since then had no episodes of flare-ups , missed last 2 doses of Entivio which he takes every 8 weeks comes here for 2 weeks of bloody diarrhea CT scan showed flare-up of colitis will admit patient for IV steroids and supportive treatment Differential Diagnosis Differential Diagnoses: The differential diagnosis associated with the presentation includes Colitis/ulcerative colitis Consult Healthcare Provider Management of the patient was discussed with: Hospitalist Lab Data MDM Lab Attestation statement: I reviewed the patient's lab results. 11/15/22 15:54 11/15/22 15:54 Labs: Lab Results 11/15/22 11/15/22 Range/Units 15:54 18:00 WBC 20.0 H (4.8-10.8) X10*3/uL RBC 4.72 (4.60-5.80) X10*6/uL Hgb 14.7 (14.0-18.0) g/dl Hct 43.3 (42.0-52.0) % MCV 91.7 (80.0-98.0) fL MCH 31.1 (27.0-33.0) pg MCHC 33.9 (31.0-36.0) g/dl RDW 13.7 (11.0-16.0) % Plt Count 576 H D (160-400) X10*3/uL MPV 9.1 L (9.4-12.4) fL Immature Gran % (Auto) 0.6 H (0.0-0.4) % Neut % (Auto) 65.8 (45-73) % Lymph % (Auto) 10.8 L (20-40) % [place] % (Auto) 5.3 (2-11) % Eos % (Auto) 17.2 H (0-4) % Baso % (Auto) 0.3 (0-2) % Lymph # (Auto) 2.2 (1.2-4.9) X10*3/uL [place] # (Auto) 1.1 (0.1-1.2) X10*3/uL Eos # (Auto) 3.5 H (0.0-0.4) X10*3/uL Baso # (Auto) 0.1 (0.0-0.2) X10*3/uL Abs Immat Gran (auto) 0.13 H (0.00-0.03) X10*3/uL Absolute Neuts (auto) 13.2 H (2.0-8.3) x10*3/uL Absolute Nucleated RBC 0.000 (0.0-0.012) X10*3/uL Nucleated RBC % (auto) 0.0 (0.0-0.2) /100WBC Smear Tech's Comments VERIFIED Sodium 139 (135-145) mmol/L Potassium 3.6 (3.3-5.1) mmol/L Chloride 105 (96-108) mmol/L Carbon Dioxide 26 (22-29) mmol/L Anion Gap 12 (12-20) BUN 9 (9-16) mg/dL Creatinine 1.38 (0.5-1.4) mg/dL Estim Creat Clear Calc 84.1 Estimated GFR 58 Random Glucose 155 H (60-115) mg/dL Calcium 8.7 D (8.4-10.2) mg/dL Magnesium 1.9 (1.6-2.6) mg/dL Total Bilirubin 0.5 (0.0-1.0) mg/dL Direct Bilirubin 0.2 (0.0-0.5) mg/dL AST 15 (5-37) U/L ALT 12 (0-40) U/L Alkaline Phosphatase 48 (39-117) U/L Total Protein 5.9 L (6.5-8.0) g/dL Albumin 3.5 (3.5-5.0) g/dL Lipase 24 (8-78) U/L Stool Occult Blood POSITIVE (NEGATIVE) Radiology Impression Discussion of test interpretation with radiology: I have reviewed the radiologist's reading. Radiologist Impression: CT/CT abdomen pelvis wo IV con IMPRESSION: * There is circumferential wall thickening of the transverse and descending colon as well as the sigmoid colon, the attenuation of the mucosa is low, with very mild pericolic fat stranding, although nonspecific CT finding however is compatible with colitis including ulcerative colitis. There is no evidence of bowel perforation. * No lymphadenopathy. No free air or fluid. Discharge Plan Discharge Clinical Impression: Ulcerative colitis, acute Patient Disposition: Admitted As Inpatient
[2022-11-15 16:03] LABS: Basophils Absolute Auto 0.1 X10*3/uL (0.0-0.2); Basophils Percent Auto 0.3 % (0-2); Eosinophils Absolute Auto 3.5 X10*3/uL (0.0-0.4); Eosinophils Percent Auto 17.2 % (0-4); Hematocrit 43.3 % (42.0-52.0); Hemoglobin 14.7 g/dl (14.0-18.0); Imm Gran Abs Auto 0.13 X10*3/uL (0.00-0.03); Imm Gran Pct Auto 0.6 % (0.0-0.4); Lymphocytes Absolute Auto 2.2 X10*3/uL (1.2-4.9); Lymphocytes Percent Auto 10.8 % (20-40); MANUAL DIFF FLAG SCAN; Mean Corpuscular HGB Conc 33.9 g/dl (31.0-36.0); Mean Corpuscular Hemoglobin 31.1 pg (27.0-33.0); Mean Corpuscular Volume 91.7 fL (80.0-98.0); Mean Platelet Volume 9.1 fL (9.4-12.4); Monocytes Absolute Auto 1.1 X10*3/uL (0.1-1.2); Monocytes Percent Auto 5.3 % (2-11); Neutrophils Absolute Auto 13.2 x10*3/uL (2.0-8.3); Neutrophils Percent Auto 65.8 % (45-73); Platelet Count 576 X10*3/uL (160-400); Red Blood Count 4.72 X10*6/uL (4.60-5.80); Red Cell Distribution Width 13.7 % (11.0-16.0); SCAN SMEAR FLAG 1
[2022-11-15 16:16] VITALS: BP 106/61; PULSE 104; RESP 18; TEMP 37.2; O2SAT 97
[2022-11-15 16:17] LABS: Alanine Aminotransferase 12 U/L (0-40); Albumin Level 3.5 g/dL (3.5-5.0); Alkaline Phosphatase 48 U/L (39-117); Anion Gap 12 (12-20); Aspartate Amino Transferase 15 U/L (5-37); Bilirubin Direct 0.2 mg/dL (0.0-0.5); Bilirubin Total 0.5 mg/dL (0.0-1.0); Blood Urea Nitrogen 9 mg/dL (9-16); Calcium 8.7 mg/dL (8.4-10.2); Carbon Dioxide 26 mmol/L (22-29); Chloride 105 mmol/L (96-108); Creatinine Clr Calc Pharmacy 84.1; Estimated Glomerular Filt Rate 58; Glucose Random 155 mg/dL (60-115); Lipase 24 U/L (8-78); Magnesium 1.9 mg/dL (1.6-2.6); Potassium 3.6 mmol/L (3.3-5.1); Sodium 139 mmol/L (135-145); Total Protein 5.9 g/dL (6.5-8.0)
--- NOTE | 2022-11-15 16:19 | PC.NURSE ---
Addendum entered by Soraida Barker 11/15/22 16:53: pt also c/o dysuria. denies any other urinary symptoms at this time. Original Note: a&ox3, vss, nsr/sinus tachy on the monitoring coordinator. pt comes in today d/t ulcerative colitis flare up. pt c/o 4/10 LLQ abdominal pain that radiates towards left side of his lower back. pt states that he has had bloody/mucous stool for the past month. pt also c/o weakness/fatigue/nauseous/dizzy/lightheaded. pt states that his sx have been causing him difficulty to walk. pt states that this am when he woke up he had extreme amount of bright red blood in stool. pt has picture on phone. hyperactive bs noted upon auscultation. abdomen tender upon palpation. hat and urine sample cup placed bedside for precaution if sample needs to be sent down to lab. pt currently resting comfortably in no apparent distress. respirations even and unlabored. call obrien placed within reach.
[2022-11-15 16:28] LABS: SLIDE REVIEW VERIFIED
[2022-11-15 17:32] VITALS: PULSE 99; RESP 16; TEMP 36.9; O2SAT 99
--- NOTE | 2022-11-15 17:32 | PC.NURSE ---
vss and up to date, nsr on the emt i/85. pt states that pain level in his abdomen has not changed. resting comfortably in no apparent distress carl. respirations even and unlabored. call obrien placed within reach.
[2022-11-15] MEDS: 0.9 % Sodium Chloride 1,000 ML 999 ML IV ×2 (17:57→20:13)
--- NOTE | 2022-11-15 18:03 | PC.NURSE ---
provider bedside w/ pt discussing potential plan of care. 20g IV placed in the right AC w/o complications. IVF hung per provider order. stool sample collected and sent to lab. pt resting comfortably in no apparent distress. call obrien placed within reach.
[2022-11-15 18:14] LABS: OBS Int Ctl Valid YES; OBS1 POSITIVE (NEGATIVE)
[2022-11-15] MEDS: methylPREDNISolone Sod Succ 125 MG/2 ML VIAL IVPUSH (18:28)
--- NOTE | 2022-11-15 18:29 | PC.NURSE ---
medication administered per provider order.
[2022-11-15 18:48] VITALS: BP 101/60; PULSE 82; RESP 17; TEMP 37; O2SAT 99
--- NOTE | 2022-11-15 19:25 | PC.NURSE ---
This RN took over pt assignment @ 1900. Pt ca&ox4, no signs of distress. Pt resting comfortably on his cell phone. Call obrien placed in reach. Plan of care ongoing.
--- NOTE | 2022-11-15 19:46 | P.HPHOSP_ITS ---
History of Present Illness Date of Service: 11/15/22 Chief Complaint: Abdominal Pain This is a 37-year-old male with pertinent history of ulcerative colitis who presents to the emergency department for evaluation of abdominal pain and bloody diarrhea. Patient states he was diagnosed with ulcerative colitis in 2019 via colonoscopy. He had admission to the hospital for ulcerative colitis flare in 2020. Patient states he has been having cramping abdominal pain for the last 1 month. It has progressed in the last 1 week, is generalized, constant and without any relieving factors. Also states over the last 2-3 days, he has been having 8-10 bloody bowel movements. Patient missed his last 2 doses of vedolizumab as he did not have insurance. Also has associated nausea, chills and subjective fevers. No chest discomfort, palpitations, shortness of breath, changes in urinary habits. In the emergency department, imaging with circumferential wall thickening of transverse and descending colon Review of Systems 2 Constitutional: Constitutional: Reports chills and Reports fever(s) Cardiovascular: Cardiovascular: Reports no additional cardiovascular complaints Respiratory: Respiratory: Reports no additional respiratory complaints Gastrointestinal: Gastrointestinal: Reports abdominal pain, Reports hematochezia and Reports nausea PMFSH Medical History Ulcerative colitis Family History Father Diabetes Hypertension Mother Tachycardia Daughter In good health Daughter In good health Sister In good health Sister In good health Sister In good health Maternal Grandfather Myocardial infarction Maternal Aunt Stroke Maternal Grandmother Alzheimer disease Surgical History H/O colonoscopy Social History Household Members: Significant Other and Children Housing: Apartment Do you presently have visiting nurse or other home services: No Alcohol intake: current Alcohol intake frequency: holidays/special occasions only Patient Tobacco Use Status: Former Tobacco user Tobacco use type: Cigarette Years Smoked: 2017 Smoked in Last 30 Days: Yes e-Cigarette/Vaping Use: Never Used Second Hand Smoke Exposure: No Use of substances other than those prescribed or required for medical reasons: No Advance Directives: Yes Advance Directives on File: Yes Advance Directives Date on File: 12/13/20 service: No Current occupational status: employed 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[employer] Cognitive needs: No Hearing needs: No Vision needs: No Meds Allergies Allergy/AdvReac Type Severity Reaction Status Date / Time No Known Allergies Allergy Verified 11/15/22 15:41 Active Medications: Current Medications Acetaminophen (Acetaminophen 325 Mg Tablet) 650 mg PO Q6H PRN PRN Reason: Pain, Mild (Pain Scale 1-3) Sodium Chloride (Ns) 1,000 mls @ 999 mls/hr IV .Q1H1M MICHELLE Stop: 11/15/22 20:45 Melatonin (Melatonin 3 Mg Tablet) 6 mg PO BEDTIME PRN PRN Reason: Insomnia Methylprednisolone Sodium Succinate (Methylprednisolone Sod Succ 40 Mg/Ml Vial) 20 mg IVPUSH Q8H MICHELLE Ondansetron HCl (Ondansetron Hcl 4 Mg/2 Ml Vial) 4 mg IVPUSH Q8H PRN PRN Reason: Nausea and Vomiting Sodium Chloride (0.9 % Sodium Chloride Flush 3 Ml Syringe) 3 ml IVFLUSH QSHIFT [facility] Physical Exam 2 Vital Signs and Narrative: Vital Signs: Last Vital Signs Temp 98.6 F 11/15/22 18:48 Pulse 82 11/15/22 18:48 Resp 17 11/15/22 18:48 BP 101/60 11/15/22 18:48 Pulse Ox 99 11/15/22 18:48 O2 Del Method Room Air 11/15/22 18:48 BMI result Body Mass Index 33.0 Middle-aged male lying in bed in no distress Neck supple, no JVD Regular rate and rhythm, S1-S2 heard Regular breath sounds bilaterally, no wheezing or crackles appreciated Abdomen with generalized mild tenderness, no guarding, no rigidity, no rebound tenderness Patient is awake, alert and oriented to self, place, time and person ; no focal motor deficit Psych: Normal mood No pedal edema Results Labs 11/15/22 15:54 11/15/22 15:54 Labs: Laboratory Results - last 24 hr 11/15/22 11/15/22 15:54 18:00 MCV 91.7 MCH 31.1 MCHC 33.9 RDW 13.7 Plt Count 576 H D MPV 9.1 L Immature Gran % (Auto) 0.6 H Neut % (Auto) 65.8 Lymph % (Auto) 10.8 L [place] % (Auto) 5.3 Eos % (Auto) 17.2 H Baso % (Auto) 0.3 Lymph # (Auto) 2.2 [place] # (Auto) 1.1 Eos # (Auto) 3.5 H Baso # (Auto) 0.1 Abs Immat Gran (auto) 0.13 H Absolute Neuts (auto) 13.2 H Absolute Nucleated RBC 0.000 Nucleated RBC % (auto) 0.0 Smear Tech's Comments VERIFIED Anion Gap 12 Estim Creat Clear Calc 84.1 Estimated GFR 58 Random Glucose 155 H Calcium 8.7 D Magnesium 1.9 Total Bilirubin 0.5 Direct Bilirubin 0.2 AST 15 ALT 12 Alkaline Phosphatase 48 Total Protein 5.9 L Albumin 3.5 Lipase 24 Stool Occult Blood POSITIVE Imaging Radiologist's Impressions: Impressions Abdomen/Pelvis CT 11/15/22 18:12 IMPRESSION: * There is circumferential wall thickening of the transverse and descending colon as well as the sigmoid colon, the attenuation of the mucosa is low, with very mild pericolic fat stranding, although nonspecific CT finding however is compatible with colitis including ulcerative colitis. There is no evidence of bowel perforation. * No lymphadenopathy. No free air or fluid. Assessment and Plan (1) Ulcerative colitis, acute: Status: Acute Plan This is a 37-year-old male with pertinent history of ulcerative colitis who presents to the emergency department for evaluation of abdominal pain and bloody diarrhea. #. Acute severe ulcerative colitis. As patient missed last 2 doses of vedolizumab. Will admit patient and initiate IV steroids. Also administering empiric IV antibiotics. C diff and stool culture pending. Resuscitating with IV crystalloids. Will keep NPO, advanced diet as tolerated. Consulted GI, appreciate assistance Med rec pending DVT prophylaxis: Mechanical Full code Admit as inpatient and will require two night minimum hospital stay for IV steroids and IV antibiotics Time Spent With Patient Time: Total time managing care of this patient today ____ minutes. Quality Stroke Does the patient have a stroke diagnosis?: No VTE Prior VTE?: No VTE Risk Level:: Medical - moderate - high VTE Device Contraindication: N/A - Device Ordered VTE Drug Contraindication: Treatment Not Indicated
--- NOTE | 2022-11-15 20:36 | PC.NURSE ---
Pt medicated per apr. Pt denies pain. Med recon completed with pt and facility med list. Belongings list completed. Family member at bedside. plan of care ongoing
--- NOTE | 2022-11-15 21:02 | PC.NURSE ---
This RN attempted to call in report to RN for room 352.
[2022-11-15] MEDS: levoFLOXacin/D5W 750 MG/150 ML PIGGYBACK 100 MG IV (21:14)
--- NOTE | 2022-11-15 21:19 | PC.NURSE ---
Pt medicated per mar. family member remains at bedside. plan of care ongoing.
[2022-11-15 22:38] VITALS: BP 110/65; PULSE 84; RESP 17; TEMP 36.7; O2SAT 96
[2022-11-15] MEDS: metroNIDAZOLE/NS 500 MG/100 ML PIGGYBACK 100 MG IV (22:57)
--- NOTE | 2022-11-15 23:01 | PC.NURSE ---
Pt ca&ox4, no signs of distress. Pt medicated per apr. gf at bedside plan of care ongoing.
[2022-11-15 23:08] VITALS: BMI 30.4
[2022-11-15 23:09] VITALS: BP 118/58; PULSE 84; RESP 18; TEMP 36.9; O2SAT 98
--- NOTE | 2022-11-15 23:30 | PC.NURSE ---
Pt came around 2300 from the ED on a stretcher, alert and oriented, settled in bed, admission care done, instructed on NPO and complied.
[2022-11-16] MEDS: methylPREDNISolone Sod Succ 40 MG/ML VIAL 20 MG IVPUSH ×3 (02:03→17:09)
[2022-11-16 02:54] VITALS: BP 108/58; PULSE 71; RESP 16; TEMP 36.1; O2SAT 96
[2022-11-16] MEDS: metroNIDAZOLE/NS 500 MG/100 ML PIGGYBACK 100 MG IV ×3 (05:54→22:55)
[2022-11-16 07:04] VITALS: BP 111/59; PULSE 67; RESP 16; TEMP 36.6; O2SAT 97
--- NOTE | 2022-11-16 07:29 | P.CNGI_ITS ---
History of Present Illness Data of Consult Service Date: 11/16/22 Primary Care Provider: Jose Stephen PA-C HPI Reason for consult: colitis 37-year-old male with ulcerative colitis who I am seeing for assessment for colitis flare Patient has had UC for several years, and had been placed on entyvio with good results as mesalamine wasn;t really working and issues with compliance and dosing. He lost insurance and no entyvio for 4 months now. For last 1 month noted 8/10 left sided crampy pain, without radiaiton and relieved with passing stool. He noted mucous, blood and loose stools all the time, He has noted chills and occ fevers, fair appetite with nausea but no vomiting. No chest discomfort, palpitations, shortness of breath, changes in urinary habits. No sick contacts and no recent ABX, foreign travel. Denies using drugs, alcohol or NSAID Labs: HGb 14, WCC 20 plts 500, albumin 3.4 g Imaging; Left sided colonic thickening and inflammation Review of Systems 2 Review of Systems: Constitutional : No Weight loss, + Chills ENT/Mouth : No sore throat, No Rhinorrhea Eyes: No Swelling, No Redness Cardiovascular : No Chest Pain, No SOB, No Edema Respiratory : No Cough, No Sputum, No Wheezing Gastrointestinal : see HPI Genitourinary : NO Dysuria, No Urinary Frequency, No Hematuria, No Urgency Musculoskeletal : No joint pain, No Myalgias, No Joint Swelling Skin : No Skin Lesions, No rash Neuro : No Weakness, No Numbness, No Dizziness, No Headache Psych : No Anxiety/Panic, No Depression Heme/Lymph: No Bruising, No Lymphadenopathy Endocrine : No Polyuria, No Polydipsia All other systems reviewed and are negative. [facility] Past Medical History Medical History Ulcerative colitis Family History Family History Father Diabetes Hypertension Mother Tachycardia Daughter In good health Daughter In good health Sister In good health Sister In good health Sister In good health Maternal Grandfather Myocardial infarction Maternal Aunt Stroke Maternal Grandmother Alzheimer disease Surgical History Surgical History H/O colonoscopy Social History Social History Household Members: None Housing: Apartment Do you presently have visiting nurse or other home services: No Alcohol intake: current Alcohol intake frequency: holidays/special occasions only Patient Tobacco Use Status: Former Tobacco user Tobacco use type: Cigarette Years Smoked: 2016 e-Cigarette/Vaping Use: Currently Using Second Hand Smoke Exposure: No Advance Directives Date on File: 12/13/20 service: No Current occupational status: employed 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[employer] Cognitive needs: No Hearing needs: No Vision needs: No Meds Allergies Allergy/AdvReac Type Severity Reaction Status Date / Time No Known Allergies Allergy Verified 11/15/22 15:41 Active Medications: Current Medications Acetaminophen (Acetaminophen 325 Mg Tablet) 650 mg PO Q6H PRN PRN Reason: Pain, Mild (Pain Scale 1-3) Levofloxacin (Levaquin) 750 mg in 150 mls @ 100 mls/hr IV Q24H [facility] Last Infusion: 11/15/22 22:45 Dose: Infused Metronidazole (Flagyl) 500 mg in 100 mls @ 100 mls/hr IV Q8H [facility] Last Infusion: 11/16/22 07:15 Dose: Infused Melatonin (Melatonin 3 Mg Tablet) 6 mg PO BEDTIME PRN PRN Reason: Insomnia Methylprednisolone Sodium Succinate (Methylprednisolone Sod Succ 40 Mg/Ml Vial) 20 mg IVPUSH Q8H [facility] Last Admin: 11/16/22 02:03 Dose: 20 mg Non-Formulary Medication (Mesalamine) 1.5 gm PO QAM [facility] Ondansetron HCl (Ondansetron Hcl 4 Mg/2 Ml Vial) 4 mg IVPUSH Q8H PRN PRN Reason: Nausea and Vomiting Sodium Chloride (0.9 % Sodium Chloride Flush 3 Ml Syringe) 3 ml IVFLUSH QSHIFT [facility] Last Admin: 11/16/22 06:58 Dose: Not Given Home Medications Medication Instructions Recorded Confirmed Last Taken Type vedolizumab 300 mg intravenous 300 mg IV Q56D 11/15/22 11/16/22 Unknown History solution (Entyvio) Physical Exam 2 Vital Signs: Vital Signs: Last Vital Signs Temp 98 F 11/16/22 07:04 Pulse 67 11/16/22 07:04 Resp 16 11/16/22 07:04 BP 111/59 L 11/16/22 07:04 Pulse Ox 97 11/16/22 07:04 O2 Del Method Room Air 11/16/22 07:04 BMI result Body Mass Index 30.4 EXAM: GENERAL: The patient is well developed and nontoxic. VITAL SIGNS:see workflow HEENT: Nonicteric sclerae, PERRLA, EOMI. Oropharynx clear. Moist mucous membranes. Conjunctivae appear well perfused. No thyroid mass. CHEST: Chest wall is nontender. HEART: Regular rate and rhythm without murmurs. LUNGS: Clear to auscultation bilaterally. ABDOMEN: Soft, positive bowel sounds, tender LLQ, no organomegaly.no flank tenderness SKIN: No rash, no excessive bruising, petechiae, or purpura. NEUROLOGIC: Cranial nerves II-XII intact without motor/sensory deficit. Psych: Appearance: grossly normal Results Labs 11/15/22 15:54 11/16/22 07:37 Labs: Short CBC 11/15/22 Range/Units 15:54 WBC 20.0 H (4.8-10.8) X10*3/uL Hgb 14.7 (14.0-18.0) g/dl Hct 43.3 (42.0-52.0) % Plt Count 576 H D (160-400) X10*3/uL BMP 11/15/22 15:54 Sodium 139 Potassium 3.6 Chloride 105 Carbon Dioxide 26 BUN 9 Creatinine 1.38 Calcium 8.7 D Liver Function 11/15/22 Range/Units 15:54 Total Bilirubin 0.5 (0.0-1.0) mg/dL Direct Bilirubin 0.2 (0.0-0.5) mg/dL AST 15 (5-37) U/L ALT 12 (0-40) U/L Alkaline Phosphatase 48 (39-117) U/L Albumin 3.5 (3.5-5.0) g/dL Imaging CT scan - abdomen: Attestation: I personally reviewed and interpreted this imaging study as follows: (left sided colonic thickening, stranding ) Assessment and Plan (1) Ulcerative colitis, acute: Qualifiers: Digestive disease complication type: with rectal bleeding Qualified Code(s): K51.911 - Ulcerative colitis, unspecified with rectal bleeding Status: Acute Plan 1. Acute on chronic UC due to missing doses of entyvio x 2 PLAN: 1/ check c diff and stool PCR panel 2/ Commence pred 40 mg with short taper 3/ can add flagyl, leviflox for the moment, 4/ re establish entyvio, will re induce with loading doses Time Spent With Patient Time: Total time managing care of this patient today ____ minutes. Procedures Date of Service Date of Service: 11/16/22
[2022-11-16 08:31] LABS: Alanine Aminotransferase 13 U/L (0-40); Albumin Level 3.4 g/dL (3.5-5.0); Alkaline Phosphatase 47 U/L (39-117); Anion Gap 13 (12-20); Aspartate Amino Transferase 16 U/L (5-37); Bilirubin Total 0.5 mg/dL (0.0-1.0); Blood Urea Nitrogen 9 mg/dL (9-16); Calcium 8.6 mg/dL (8.4-10.2); Carbon Dioxide 22 mmol/L (22-29); Chloride 108 mmol/L (96-108); Creatinine Clr Calc Pharmacy 108.4; Estimated Glomerular Filt Rate > 60; Glucose Random 136 mg/dL (60-115); Sodium 139 mmol/L (135-145); Total Protein 5.8 g/dL (6.5-8.0)
--- NOTE | 2022-11-16 08:49 | PHA.MEDREC ---
Pharmacy Consult ? Medication Reconciliation Pharmacy has completed the medication reconciliation. Spoke to patient at [facility], states he takes four of the 0.375g capsules of mesalamine a day, and the suppository PRN. States he gets his medications from [facility].
[2022-11-16] MEDS: Mesalamine 250 MG CAPSULE.ER 1500 MG PO (09:56)
--- NOTE | 2022-11-16 10:07 | MHC.CM.PN ---
PT REPORTS HE LIVES WITH HIS S/O AND CHILDREN HE IS INDEPENDENT WITH CARE, HAS NO DME AND NO SERVICES PT HAS A HCP ON FILE HIS PCP IS ANDREEA FRANCO DCP: HOME NO SERVICES VIA PRIVATE TRANSPORT
--- NOTE | 2022-11-16 11:55 | P.PNIM_ITS ---
Subjective Subjective Date of Service: 11/16/22 Interval History: Seen and evaluated this morning Feels much better, less pain no bloody bowel movements overnight Review of Systems Review of Systems: Yes all other systems are reviewed and are negative Physical Exam 2 Vital Signs: Vital Signs: Last Vital Signs Temp 98 F 11/16/22 07:04 Pulse 67 11/16/22 07:04 Resp 16 11/16/22 07:04 BP 111/59 L 11/16/22 07:04 Pulse Ox 97 11/16/22 07:04 O2 Del Method Room Air 11/16/22 07:04 BMI result Body Mass Index 30.4 Const: Other: Constitutional : Awake, interactive, not in distress Neck : Normal inspection, Supple Cardiovascular : RRR, no JVP, no lower extremity edema Respiratory : good bilateral air entry, no crackles, wheezes or rhonchi Gastrointestinal: soft, lax, Normal bowel sounds, minimal tenderness generalized Skin : Warm, Dry Neurological : Alert & oriented x3, No focal deficit Objective Data Active Medications Acetaminophen (Acetaminophen 325 Mg Tablet) 650 mg PO Q6H PRN PRN Reason: Pain, Mild (Pain Scale 1-3) Levofloxacin (Levaquin) 750 mg in 150 mls @ 100 mls/hr IV Q24H [facility] Last Infusion: 11/15/22 22:45 Dose: Infused Documented By: RAN Metronidazole (Flagyl) 500 mg in 100 mls @ 100 mls/hr IV Q8H [facility] Last Infusion: 11/16/22 07:15 Dose: Infused Documented By: AROLDO Melatonin (Melatonin 3 Mg Tablet) 6 mg PO BEDTIME PRN PRN Reason: Insomnia Mesalamine (Mesalamine 250 Mg Capsule.Er) 1,500 mg PO DAILY [facility] Last Admin: 11/16/22 09:56 Dose: 1,500 mg Documented By: AROLDO Methylprednisolone Sodium Succinate (Methylprednisolone Sod Succ 40 Mg/Ml Vial) 20 mg IVPUSH Q8H [facility] Last Admin: 11/16/22 09:56 Dose: 20 mg Documented By: AROLDO Ondansetron HCl (Ondansetron Hcl 4 Mg/2 Ml Vial) 4 mg IVPUSH Q8H PRN PRN Reason: Nausea and Vomiting Sodium Chloride (0.9 % Sodium Chloride Flush 3 Ml Syringe) 3 ml IVFLUSH QSHIFT [facility] Last Admin: 11/16/22 06:58 Dose: Not Given Documented By: AROLDO Non-Admin Reason: IV Running Labs 11/15/22 15:54 11/16/22 07:37 Labs: Laboratory Results - last 24 hr 11/15/22 11/15/22 11/16/22 15:54 18:00 07:37 MCV 91.7 MCH 31.1 MCHC 33.9 RDW 13.7 Plt Count 576 H D MPV 9.1 L Immature Gran % (Auto) 0.6 H Neut % (Auto) 65.8 Lymph % (Auto) 10.8 L [place] % (Auto) 5.3 Eos % (Auto) 17.2 H Baso % (Auto) 0.3 Lymph # (Auto) 2.2 [place] # (Auto) 1.1 Eos # (Auto) 3.5 H Baso # (Auto) 0.1 Abs Immat Gran (auto) 0.13 H Absolute Neuts (auto) 13.2 H Absolute Nucleated RBC 0.000 Nucleated RBC % (auto) 0.0 Smear Tech's Comments VERIFIED Hold Purple Top SEE NOTE Anion Gap 12 13 Estim Creat Clear Calc 84.1 108.4 Estimated GFR 58 > 60 Random Glucose 155 H 136 H Calcium 8.7 D 8.6 Magnesium 1.9 Total Bilirubin 0.5 0.5 Direct Bilirubin 0.2 AST 15 16 ALT 12 13 Alkaline Phosphatase 48 47 Total Protein 5.9 L 5.8 L Albumin 3.5 3.4 L Lipase 24 Stool Occult Blood POSITIVE Assessment and Plan (1) Ulcerative colitis, acute: Status: Acute Plan This is a 37-year-old male with pertinent history of ulcerative colitis who presents to the emergency department for evaluation of abdominal pain and bloody diarrhea. # Acute severe ulcerative colitis. IV steroids. taper on discharge empiric IV antibiotics. C diff and stool culture pending. IV crystalloids Continue Mesalamine Start clears , advanced diet as tolerated. GI consult DVT prophylaxis: Mechanical Full code Admit as inpatient and will require two night minimum hospital stay for IV steroids and IV antibiotics Time Spent With Patient Time: Total time managing care of this patient today ____ minutes. Quality Stroke Does the patient have a stroke diagnosis?: No VTE Prior VTE?: No VTE Risk Level:: Medical - moderate - high VTE Device Contraindication: N/A - Device Ordered VTE Drug Contraindication: Treatment Not Indicated
[2022-11-16] MEDS: Lactated Ringers 1,000 ML 100 ML IVCONT ×2 (12:07→22:55)
[2022-11-16 12:13] LABS: CDiff Gene PCR NEGATIVE (Negative)
[2022-11-16 12:56] LABS: Adenovirus F 40/41 Not Detected (Not Detect.); Astrovirus Not Detected (Not Detect.); Campylobacter Not Detected (Not Detect.); Cryptosporidium Not Detected (Not Detect.); Cyclospora cayetanensis Not Detected (Not Detect.); E. coli EAEC Not Detected (Not Detect.); E. coli EPEC Not Detected (Not Detect.); E. coli ETEC Not Detected (Not Detect.); E. coli STEC Not Detected (Not Detect.); Entamoeba histolytica Not Detected (Not Detect.); Giardia lamblia Not Detected (Not Detect.); Norovirus GI/GII Not Detected (Not Detect.); Plesiomonas shigelloides Not Detected (Not Detect.); Rotavirus A Not Detected (Not Detect.); Salmonella Not Detected (Not Detect.); Sapovirus Not Detected (Not Detect.); Shigella sp./EIEC Not Detected (Not Detect.); Vibrio Not Detected (Not Detect.); Vibrio Cholerae Not Detected (Not Detect.); Yersinia enterocolitica Not Detected (Not Detect.)
[2022-11-16 15:07] VITALS: BP 123/57; PULSE 89; RESP 18; TEMP 36.8; O2SAT 96
[2022-11-16 19:39] VITALS: BP 116/64; PULSE 86; RESP 18; TEMP 36.8; O2SAT 96
[2022-11-16] MEDS: levoFLOXacin/D5W 750 MG/150 ML PIGGYBACK 100 MG IV (21:28)
[2022-11-17] MEDS: methylPREDNISolone Sod Succ 40 MG/ML VIAL 20 MG IVPUSH ×2 (02:09→09:00)
[2022-11-17 02:19] VITALS: BP 108/56; PULSE 67; RESP 18; TEMP 36.4; O2SAT 95
[2022-11-17] MEDS: metroNIDAZOLE/NS 500 MG/100 ML PIGGYBACK 100 MG IV (05:41)
[2022-11-17 06:10] LABS: Hematocrit 38.2 % (42.0-52.0); Mean Corpuscular Hemoglobin 31.3 pg (27.0-33.0); Mean Platelet Volume 9.5 fL (9.4-12.4); Platelet Count 541 X10*3/uL (160-400); Red Blood Count 4.15 X10*6/uL (4.60-5.80); Red Cell Distribution Width 13.9 % (11.0-16.0)
[2022-11-17 06:22] LABS: Anion Gap 16 (12-20); Blood Urea Nitrogen 8 mg/dL (9-16); Calcium 8.7 mg/dL (8.4-10.2); Carbon Dioxide 23 mmol/L (22-29); Chloride 108 mmol/L (96-108); Creatinine Clr Calc Pharmacy 125.5; Estimated Glomerular Filt Rate > 60; Glucose Random 128 mg/dL (60-115); Sodium 143 mmol/L (135-145)
[2022-11-17 07:06] VITALS: BP 116/56; PULSE 72; RESP 18; TEMP 36.7; O2SAT 98
[2022-11-17] MEDS: Lactated Ringers 1,000 ML 100 ML IVCONT (08:57)
[2022-11-17] MEDS: Mesalamine 250 MG CAPSULE.ER 1500 MG PO (08:59)
--- NOTE | 2022-11-17 10:27 | PM.DS ---
DS: Providers Provider Date of Service: 11/17/22 Date of admission: 11/15/22 19:41 Primary care physician: Jose Stephen PA-C Consults: 11/15/22 19:46 Consult to Gastroenterology Routine Consulting Provider: Vasiliy House Reason for consultation: UC flare DS: Diagnosis Discharge Diagnosis (1) Ulcerative colitis, acute: Status: Acute DS: Summary Hospital Course Hospital Course: Admission note HPI This is a 37-year-old male with pertinent history of ulcerative colitis who presents to the emergency department for evaluation of abdominal pain and bloody diarrhea. Patient states he was diagnosed with ulcerative colitis in 2019 via colonoscopy. He had admission to the hospital for ulcerative colitis flare in 2020. Patient states he has been having cramping abdominal pain for the last 1 month. It has progressed in the last 1 week, is generalized, constant and without any relieving factors. Also states over the last 2-3 days, he has been having 8-10 bloody bowel movements. Patient missed his last 2 doses of vedolizumab as he did not have insurance. Also has associated nausea, chills and subjective fevers. No chest discomfort, palpitations, shortness of breath, changes in urinary habits. In the emergency department, imaging with circumferential wall thickening of transverse and descending colon. Hospital course Admitted for abdominal pain with CT scan suggestive of Acute severe ulcerative colitis. Treated with IV steroids, empiric IV antibiotics and IV fluids as C diff and stool culture negative. Evaluated by GI who recommended tapering dose of steroid with antibiotics at time of discharge as he was able to tolerate diet well. To continue Mesalamine and follow up with GI as outpatient to restart his vedolizumab when insurance agrees. Continue Prednisone tapering dose Continue Flagyl and Levaquin as prescribed Follow with Dr House as outpatient advance diet as tolerated Time Spent with Patient Time attestation: Total time managing care of this patient today ____ minutes. Discharge coordination time: Greater than 30 minutes Quality: Safe Use of Opioids Does Pt have an Active Cancer Diagnosis on the Problem List?: No Quality: Stroke Does the patient have a stroke diagnosis?: No Physical Exam Vital Signs: Vital Signs: Last Vital Signs Temp 98.1 F 11/17/22 07:06 Pulse 72 11/17/22 07:06 Resp 18 11/17/22 07:06 BP 116/56 L 11/17/22 07:06 Pulse Ox 98 11/17/22 07:06 O2 Del Method Room Air 11/17/22 07:06 BMI result Body Mass Index 30.4 Const: Other: Constitutional : Awake, interactive, not in distress Neck : Normal inspection, Supple Cardiovascular : RRR, no JVP, no lower extremity edema Respiratory : good bilateral air entry, no crackles, wheezes or rhonchi Gastrointestinal: soft, lax, Normal bowel sounds, Non tender Skin : Warm, Dry Neurological : Alert & oriented x3, No focal deficit DS: Data Data Completed and Pending Labs on day of discharge: Laboratory Results - last 24 hr 11/16/22 11/17/22 10:06 05:29 WBC 10.0 RBC 4.15 L Hgb 13.0 L Hct 38.2 L MCV 92.0 MCH 31.3 MCHC 34.0 RDW 13.9 Plt Count 541 H MPV 9.5 Absolute Nucleated RBC 0.000 Nucleated RBC % (auto) 0.0 Sodium 143 Potassium 4.0 Chloride 108 Carbon Dioxide 23 Anion Gap 16 BUN 8 L Creatinine 0.89 Estim Creat Clear Calc 125.5 Estimated GFR > 60 Random Glucose 128 H Calcium 8.7 Stl C. cayetanensis PCR Not Detected Stool Rotavirus A PCR Not Detected Stl Adenov F 40/41 PCR Not Detected Stool Astrovirus (PCR) Not Detected Stool Campylobacter PCR Not Detected Stool Cryptosporidium PCR Not Detected Stl Sh Tox Pr E STEC PCR Not Detected Stool E coli O157 PCR Not applicable Stl Enterotoxigenic E PCR Not Detected Stool EPEC (PCR) Not Detected Stool EAEC (PCR) Not Detected Stl E. histolytica PCR Not Detected Stool Giardia Lamblia PCR Not Detected Stl P. shigelloides PCR Not Detected Stool Salmonella PCR Not Detected Stool Sapovirus (PCR) Not Detected Stl Shigella/EIEC PCR Not Detected St Y.enterocolitica PCR Not Detected Stool Vibrio (PCR) Not Detected Stl Vibrio cholerae PCR Not Detected Stl Norovirus GI/GII PCR Not Detected C. difficile Tox B Gene NEGATIVE Imaging CT scan - abdomen: Radiologist's impression: ITS Impressions Abdomen/Pelvis CT 11/15/22 18:12 IMPRESSION: * There is circumferential wall thickening of the transverse and descending colon as well as the sigmoid colon, the attenuation of the mucosa is low, with very mild pericolic fat stranding, although nonspecific CT finding however is compatible with colitis including ulcerative colitis. There is no evidence of bowel perforation. * No lymphadenopathy. No free air or fluid. Discharge Plan Discharge Anticipated Discharge Date/Time: 11/17/22 09:58 Patient Disposition: Home, Self-Care Discharge Diagnosis: Ulcerative colitis flare up Referrals: Jose Stephen PA-C [Primary Care Provider] - 1 Week Discharge Medications: New prednisone 10 mg tablet See Taper PO DIRECTED Qty: 30 0RF Taper: Prednisone 40 mg daily for 3 Days and 0 Hour 30 mg daily for 3 Days and 0 Hour 20 mg daily for 3 Days and 0 Hour 10 mg daily for 3 Days and 0 Hour Rx Instructions: see taper instructions metronidazole [Flagyl] 375 mg capsule 375 mg PO TID Qty: 21 0RF levofloxacin 500 mg tablet 500 mg PO DAILY Qty: 5 0RF Continued mesalamine 1,000 mg suppository 1,000 mg [place] BEDTIME Qty: 30 0RF mesalamine 0.375 gram capsule,extended release 24hr 1.5 g PO QAM 90 Days Qty: 360 1RF sildenafil 100 mg tablet 100 mg PO DAILY PRN (Reason: sexual activity) 20 Days Qty: 20 1RF Entyvio 300 mg recon soln 300 mg IV Q56D Discharge Orders: Discharge Order (Routine); Ordered 11/17/22 Ordered By: Oral Pate Diet: Advance to usual diet Activity on Discharge: As tolerated Stand Alone Forms: Patient Portal Discharge page Care Plan Goals: Read below Health Concerns: Read below Plan of Treatment: Read below Assessment: Continue Prednisone tapering dose Continue Flagyl and Levaquin as prescribed Follow with Dr House as outpatient advance diet as tolerated
--- NOTE | 2022-11-17 10:56 | MHC.CM.PN ---
pt dcd home no services
== END 2022-11-17 11:18 | disposition home or self-care (01) | DRG 245 ==
LOC: HO.ED 19:44 → HO.EDOVER 19:51 → HO.S3 19:53
PROVIDERS: Emergency Medicine; Physician Assistant Medical; Admitting Provider Student in an Organized Health Care Education/Training Program; Emergency Provider Internal Medicine; PCP Physician Assistant; Visit Provider Student in an Organized Health Care Education/Training Program
DX: K51.911 Ulcerative colitis, unspecified with rectal bleeding (principal); Z79.899 Other long term (current) drug therapy; Z87.891 Personal history of nicotine dependence; Z91.148 Patient's other noncompliance with medication regimen for other reason
CPT/HCPCS: 36415; 74176; 80048; 80053; 80076; 82272; 83690; 83735; 85025; 85027; 87493; 87507; 99285; J1956; J2920; J2930

== ENCOUNTER → 2022-11-15 19:41 | Outpatient (BNV) | payer OTHER, SELFPAY | PROVIDERS: Admitting Provider Student in an Organized Health Care Education/Training Program; Emergency Provider Internal Medicine; PCP Physician Assistant; Visit Provider Internal Medicine Gastroenterology | DX: K51.911 Ulcerative colitis, unspecified with rectal bleeding (principal) | CPT/HCPCS: 99223 ==

== ENCOUNTER → 2022-11-15 19:41 | Outpatient (BNV) | payer OTHER, SELFPAY | PROVIDERS: Admitting Provider Student in an Organized Health Care Education/Training Program; Emergency Provider Internal Medicine; PCP Physician Assistant; Visit Provider Student in an Organized Health Care Education/Training Program | DX: K51.911 Ulcerative colitis, unspecified with rectal bleeding (principal) | CPT/HCPCS: 99222; 99232; 99239 ==

== ENCOUNTER 2022-11-27 10:54 | Outpatient (REF) | payer OTHER, SELFPAY | END 2022-11-27 10:55 | disposition home or self-care (01) | LOC: HO.LAB 10:54 | PROVIDERS: PCP Physician Assistant; Visit Provider Internal Medicine Gastroenterology | DX: K51.919 Ulcerative colitis, unspecified with unspecified complications (principal); Z11.1 Encounter for screening for respiratory tuberculosis | CPT/HCPCS: 36415; 86481 ==

== ENCOUNTER 2022-12-02 11:53 | Outpatient (REF) | payer OTHER, SELFPAY ==
[2022-12-02 13:28] LABS: Anion Gap 12 (12-20); Blood Urea Nitrogen 7 mg/dL (9-16); Calcium 9.1 mg/dL (8.4-10.2); Carbon Dioxide 27 mmol/L (22-29); Chloride 105 mmol/L (96-108); Estimated Glomerular Filt Rate > 60; Glucose Random 88 mg/dL (60-115); Iron 22 mcg/dL (45-160); Percent Iron Saturation 9 % (15-50); Potassium 3.6 mmol/L (3.3-5.1); Sodium 140 mmol/L (135-145); Total Iron Binding Capacity 258 mcg/dL (228-428); Unsaturated Iron Binding 236 ug/dL
[2022-12-04 13:03] LABS: CRP High Sensitivity >10.0 mg/L
== END 2022-12-02 11:54 | disposition home or self-care (01) ==
LOC: HO.LAB 11:53
PROVIDERS: PCP Physician Assistant; Visit Provider Physician Assistant
DX: K51.919 Ulcerative colitis, unspecified with unspecified complications (principal); D50.9 Iron deficiency anemia, unspecified
CPT/HCPCS: 36415; 80048; 83540; 85027; 85652; 86141

== ENCOUNTER 2022-12-11 13:08 | Outpatient (REF) | payer OTHER, SELFPAY | END 2022-12-11 13:09 | disposition home or self-care (01) | LOC: HO.MDS 13:08 | PROVIDERS: Visit Provider Internal Medicine Gastroenterology | DX: K51.90 Ulcerative colitis, unspecified, without complications (principal) | CPT/HCPCS: 96365; J3380 ==

== ENCOUNTER 2023-02-05 12:53 | Outpatient (REF) | payer OTHER, SELFPAY | END 2023-02-05 12:54 | disposition home or self-care (01) | LOC: HO.MDS 12:53 | PROVIDERS: Visit Provider Internal Medicine Gastroenterology | DX: K50.90 Crohn's disease, unspecified, without complications (principal) | CPT/HCPCS: 96365 ==

== ENCOUNTER 2023-04-02 12:43 | Outpatient (REF) | payer OTHER, SELFPAY | END 2023-04-02 12:44 | disposition home or self-care (01) | LOC: HO.MDS 12:43 | PROVIDERS: Visit Provider Internal Medicine Gastroenterology | DX: K51.90 Ulcerative colitis, unspecified, without complications (principal) | CPT/HCPCS: 96365 ==

== ENCOUNTER 2024-04-05 | Inpatient (IN) | payer MEDICAID, SELFPAY ==
--- NOTE | ~2024-04-05 | CT_ITS ---
EXAMINATION: CT ABDOMEN AND PELVIS WITHOUT AND WITH CONTRAST GI BLEED PROTOCOL. CLINICAL INFORMATION: Left lower quadrant abdominal pain. History of ulcerative colitis. COMPARISON: November 15, 2022 TECHNIQUE: Multidetector volumetric imaging was performed of the abdomen and pelvis before and after the IV administration of 80 mL of Omnipaque 350 strength intravenous contrast. No reported immediate complications Sagittal and coronal reformatted images were obtained on the technologist's workstation. This CT examination was performed using dose optimization techniques as appropriate, variously including the following: *Automated exposure control *Adjustment of mA and/or kV according to patient size (this includes techniques or standardized protocols for targeted exams where dose is matched to indication/reason for exam; i.e. extremities or head) *Use of iterative reconstruction technique DLP: 1292 mGy centimeter. FINDINGS: LUNG BASES: No acute airspace disease or gross pulmonary nodules in the included lung bases. LIVER, GALLBLADDER, AND BILIARY TREE: Liver measures 16 cm. Normal enhancement pattern. No focal lesion. Portal veins and hepatic veins are patent. No intrahepatic biliary ductal dilatation. No pericholecystic fluid collection or gallbladder wall thickening. No extrahepatic biliary ductal dilatation. PANCREAS: No focal mass. No peripancreatic fluid collection. No main pancreatic ductal dilatation. SPLEEN: 10 cm. No focal lesion. ADRENAL GLANDS: No nodular lesion. KIDNEYS AND URETERS: No hydronephrosis. No nephrolithiasis. No focal renal mass. Normal enhancement pattern of the renal parenchyma and urinary excretion into the collecting system. BLADDER: Fluid-filled. Patent jets, bilaterally. GASTROINTESTINAL TRACT: Segmental areas of concentric wall thickening involving the transverse colon, descending colon and proximal sigmoid colon with increased enhancement and density values from the noncontrast to the portal venous and delayed phases. Mild pericolonic edema pattern. No peripheral enhancing fluid collections in the peritoneal cavity. No ascites. No pneumoperitoneum. No pneumatosis intestinalis. Appendix is normal. No intestinal obstruction pattern. ABDOMINAL WALL: Small tiny fat-containing umbilical hernia. LYMPH NODES: Multiple prominent mesenteric lymph nodes. VASCULAR: No aneurysm or dissection, abdominal aorta. PELVIC VISCERA: Prostate gland is not enlarged. OSSEOUS STRUCTURES: No acute fracture or listhesis. No gross lytic or blastic lesions. Bony pelvis is intact. Coxofemoral joints are intact with normal alignment. CT/CT gi bleed abd pel wo/w IVcon IMPRESSION: Acute/flare ulcerative colitis of with the likely blood products/gastrointestinal bleed and the transverse colon and descending colon. No pneumoperitoneum or intestinal obstruction pattern. Fleischner guidelines were followed. Electronically signed by: Garry Quarles MD 04/05/2024 09:19 AM AMANDA QUIROZ
[2024-04-05 00:13] VITALS: BP 120/66; PULSE 88; RESP 16; TEMP 36.9; O2SAT 98; BMI 27.3
[2024-04-05 00:57] LABS: MANUAL DIFF FLAG NO
[2024-04-05 00:58] LABS: Basophils Absolute Auto 0.1 X10*3/uL (0.0-0.2); Basophils Percent Auto 0.5 % (0-2); Eosinophils Percent Auto 6.1 % (0-4); Hematocrit 29.4 % (42.0-52.0); Hemoglobin 8.5 g/dl (14.0-18.0); Imm Gran Abs Auto 0.08 X10*3/uL (0.00-0.03); Imm Gran Pct Auto 0.5 % (0.0-0.4); Lymphocytes Absolute Auto 1.3 X10*3/uL (1.2-4.9); Lymphocytes Percent Auto 7.8 % (20-40); Mean Corpuscular HGB Conc 28.9 g/dl (31.0-36.0); Mean Corpuscular Hemoglobin 19.8 pg (27.0-33.0); Mean Corpuscular Volume 68.4 fL (80.0-98.0); Mean Platelet Volume 9.2 fL (9.4-12.4); Monocytes Absolute Auto 1.1 X10*3/uL (0.1-1.2); Monocytes Percent Auto 6.5 % (2-11); NRBC Pct Auto 0.2 /100WBC (0.0-0.2); Neutrophils Absolute Auto 13.4 x10*3/uL (2.0-8.3); Neutrophils Percent Auto 78.6 % (45-73); Platelet Count 751 X10*3/uL (160-400); Red Cell Distribution Width 22.3 % (11.0-16.0)
[2024-04-05 01:21] LABS: Alanine Aminotransferase 6 U/L (0-40); Albumin Level 3.7 g/dL (3.5-5.0); Anion Gap 14 (12-20); Aspartate Amino Transferase 15 U/L (5-37); Bilirubin Total 0.3 mg/dL (0.0-1.0); Blood Urea Nitrogen 8 mg/dL (9-16); Calcium 8.7 mg/dL (8.4-10.2); Carbon Dioxide 24 mmol/L (22-29); Chloride 106 mmol/L (96-108); Creatinine Clr Calc Pharmacy 94.5; Estimated Glomerular Filt Rate > 60; Glucose Random 98 mg/dL (60-115); Potassium 3.6 mmol/L (3.3-5.1); Sodium 140 mmol/L (135-145); Total Protein 7.1 g/dL (6.5-8.0)
[2024-04-05 01:29] LABS: Alkaline Phosphatase 61 U/L (39-117)
--- NOTE | 2024-04-05 06:45 | ED_ITS ---
HPI - Abdominal Pain General Chief Complaint: Abdominal Pain Stated Complaint: abd pain, Blood in stools Time Seen by Provider: 04/05/24 06:42 Source: patient Mode of arrival: ambulatory Limitations: no limitations History of Present Illness ED Provider: ARGELIA KWAN PA-C HPI narrative: 38 year old male with pmhx significant for GERD, UC, anxiety, anemia presents to the ED today for evaluation of abdominal pain and bloody stool x2 weeks. Reports bright red blood with every bowel movement. He reports the blood has become more dark in color over the last few days. Reports severe abdominal pain to lower and left abdomen. Yesterday he developed nausea and chills. No vomiting. Reports associated fast heart beat and fatigue. No syncope. He states his ulcerative colitis was previously managed with mesalamine and Entyvio. Patient reports losing his health insurance and thus has been unable to picker / packer his prescriptions in 2-3 months. Denies any documented fever, chest pain, shortness of breath, rashes, vomiting, urinary symptoms, flank pain. Related Data Home Medications ?Medication ?Instructions ?Recorded ?Confirmed mesalamine 0.375 gram 1.5 g PO DAILY 04/05/24 04/05/24 capsule,extended release 24 hr Allergies Allergy/AdvReac Type Severity Reaction Status Date / Time No Known Allergies Allergy Verified 04/05/24 00:17 Review of Systems Review of Systems Constitutional: No fever, chills, fatigue, night sweats, weight changes ENT/Mouth: No ear pain, hearing loss, nasal congestion, sinus pain, rhinorrhea, sore throat Eyes: No eye pain, swelling, redness, vision changes, discharge Cardio: No chest pain, palpitations, MCGEE, orthopnea, peripheral edema Pulm: No SOB, cough, sputum, wheezing, dyspnea, hemoptysis GI: No vomiting, hematemesis, diarrhea, constipation, melena, +abd pain, +hematochezia, +nausea : No irregular bleeding, dysuria, frequency, urgency, hesitancy, hematuria, flank pain, urinary flow changes, urinary incontinence or retention MSK: No back pain, neck pain, joint pain, myalgias Skin: No lesions, rashes Neuro: No weakness, numbness, paresthesias, LOC, dizziness, headache Psych: No anxiety/panic, depression, SI/HI, AH/VH All other systems reviewed and are negative. PMFSH Past Medical History Attestation statement: The following information was validated with the patient. Source: old records reviewed and nursing notes reviewed Medical History Ulcerative colitis Surgical History H/O colonoscopy Family History Family History Father Diabetes Hypertension Mother Tachycardia Daughter In good health Daughter In good health Sister In good health Sister In good health Sister In good health Maternal Grandfather Myocardial infarction Maternal Aunt Stroke Maternal Grandmother Alzheimer disease Social History Social History Household Members: None Housing: Apartment Do you presently have visiting nurse or other home services: No Alcohol intake: current Alcohol intake frequency: holidays/special occasions only Patient Tobacco Use Status: Former Tobacco user Tobacco use type: Cigarette Years Smoked: 2017 e-Cigarette/Vaping Use: Currently Using Second Hand Smoke Exposure: No Advance Directives: Yes Advance Directives on File: Yes Advance Directives Date on File: 12/13/20 Do you have a plan to hurt others: No Plan service: No Current occupational status: employed 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[employer] Cognitive needs: No Hearing needs: No Vision needs: No Physical Exam ED Vital Signs: Vital Signs - 24 hr 04/05/24 00:13 04/05/24 07:22 04/05/24 09:27 Temperature 98.4 F 98.1 F Pulse Rate 88 80 83 Respiratory Rate 16 16 Blood Pressure 120/66 128/59 L 112/62 Pulse Oximetry 98 96 96 Oxygen Delivery Method Room Air Room Air Room Air BMI result Body Mass Index 27.3 vital signs stable General: Well appearing, in no acute distress. Skin: Warm, dry, intact. No rashes or lesions. Head: Normocephalic, atraumatic. EENT: Hearing is intact b/l. Conjunctiva clear. PERRLA. EOM intact. Moist mucous membranes.? Neck: Supple without LAD Cardiac: Chest wall symmetric. RRR. Lungs: Normal respiratory effort without accessory muscle use. CTA bilaterally Abdomen: +soft, slightly distended, ttp along lower abdomen and left lower quadrant without rebound or guarding. normoactive bs. no cvat. +Rectal exam performed. patient declined chaparone. Normal rectal sphincter tone. No external masses or lesions.No palpable stool in rectal vault. OBS positive. Ext: Upper and lower extremities atraumatic, without tenderness, deformity, swelling or erythema. Neuro: AOx3. Normal speech. Ambulating with steady gait. Psych: Appropriate mood and affect. Responds appropriately to questions. Course Course Course Narrative: 819 -- CBC with leukocytosis to 17. There has been quite a drop in H&H to 8.5/29.4 however last labs obtained approximately a year and a half ago with H&H 12.8/38.9. H&H as above transfusion threshold. ESR elevated to 16. CRP elevated at 2.66. Chemistry without acute electrolyte abnormality requiring intervention. No PATRICIA. Liver function at baseline. lipase wnl. OBS positive. > infection, specifically colitis, suspected however I do not suspect sepsis. He does not meet sirs criteria. Will initiate cipro + flagyl for broad spectrum coverage. IV solumedrol ordered. Zofran ordered for nausea. 1L IVF ordered. CT A/P pending. Anticipate admission to medical floor. 1004 -- CT abdomen/pelvis showing segmental areas of concentric wall thickening involving the transverse/descending and proximal sigmoid colon with increased enhancement and density values from the noncontrast to the portal venous and delayed phases. There is mild pericolonic edema pattern. No peripheral enhancing fluid collections in the peritoneal cavity. No pneumoperitoneum or intestinal obstruction. I reached out to radiologist, Dr. Quarles, who confirms there is no concern for active bleed at this time. I reached out to credit collections rep GI Dr. House who agrees with admission for treatment of UC flare. Will discuss with hospitalist. Patient is agreeable to admission. 1039 -- hospitalist has accepted patient admission. Dr. Romeo to place admission orders. patient currently stable. Medical Decision Making Medical Decision Making MDM Narrative: 38 year old male with pmhx significant for GERD, UC, anxiety, anemia presents to the ED today for evaluation of abdominal pain and bloody stool x2 weeks. Vital signs are stable. He was uncomfortable appearing however in no acute distress. On exam, abdomen is soft, slightly distended and tender to palpation along lower and left side of abdomen. No rebound tenderness or guarding. Normoactive bowel sounds. On ROBERTA, there is normal rectal sphincter tone without external masses or lesions. No palpable stool within the rectal vault. OBS positive. Differential diagnoses: colitis, UC flare, diverticulitis, diverticulosis, gastroenteritis, GI bleed, anemia, electrolyte abnormality, dehydration Abdominal exam without peritoneal signs. Low suspicion for acute hepatobiliary disease (including acute cholecystitis), acute infectious processes (pneumonia, hepatitis, pyelonephritis, PID), vascular catastrophe, bowel obstruction or viscus perforation, testicular torsion, orchitis. Presentation not consistent with other acute, emergent causes of abdominal pain at this time. Plan: labs, UA, CT AP, IV steroids, fluids, serial reassessment Differential Diagnosis Differential Diagnoses: The differential diagnosis associated with the presentation includes as above. Admission/Observation not indicated. Consult Healthcare Provider Management of the patient was discussed with: Hospitalist (Shannon Wen NP) and Carbonation Equipment Tender (Dr. House (GI)) Lab Data MDM Lab Attestation statement: I reviewed the patient's lab results. as above. 04/05/24 00:43 04/05/24 00:43 Labs: Lab Results 04/05/24 04/05/24 Range/Units 00:43 07:21 WBC 17.0 H (4.8-10.8) X10*3/uL RBC 4.30 L (4.60-5.80) X10*6/uL Hgb 8.5 L D (14.0-18.0) g/dl Hct 29.4 L D (42.0-52.0) % MCV 68.4 L (80.0-98.0) fL MCH 19.8 L (27.0-33.0) pg MCHC 28.9 L (31.0-36.0) g/dl RDW 22.3 H (11.0-16.0) % Plt Count 751 H D (160-400) X10*3/uL MPV 9.2 L (9.4-12.4) fL Immature Gran % (Auto) 0.5 H (0.0-0.4) % Neut % (Auto) 78.6 H (45-73) % Lymph % (Auto) 7.8 L (20-40) % [place] % (Auto) 6.5 (2-11) % Eos % (Auto) 6.1 H (0-4) % Baso % (Auto) 0.5 (0-2) % Lymph # (Auto) 1.3 (1.2-4.9) X10*3/uL [place] # (Auto) 1.1 (0.1-1.2) X10*3/uL Eos # (Auto) 1.0 H (0.0-0.4) X10*3/uL Baso # (Auto) 0.1 (0.0-0.2) X10*3/uL Abs Immat Gran (auto) 0.08 H (0.00-0.03) X10*3/uL Absolute Neuts (auto) 13.4 H (2.0-8.3) x10*3/uL Absolute Nucleated RBC 0.040 H (0.0-0.012) X10*3/uL Nucleated RBC % (auto) 0.2 (0.0-0.2) /100WBC ESR 16 H (0-15) MM/HR Sodium 140 (135-145) mmol/L Potassium 3.6 (3.3-5.1) mmol/L Chloride 106 (96-108) mmol/L Carbon Dioxide 24 (22-29) mmol/L Anion Gap 14 (12-20) BUN 8 L (9-16) mg/dL Creatinine 1.07 (0.5-1.4) mg/dL Estim Creat Clear Calc 94.5 Estimated GFR > 60 Random Glucose 98 (60-115) mg/dL Calcium 8.7 (8.4-10.2) mg/dL Total Bilirubin 0.3 (0.0-1.0) mg/dL AST 15 (5-37) U/L ALT 6 (0-40) U/L Alkaline Phosphatase 61 (39-117) U/L C-Reactive Protein 2.66 H (< or = 0.50) mg/dL Total Protein 7.1 (6.5-8.0) g/dL Albumin 3.7 (3.5-5.0) g/dL Lipase 24 (8-78) U/L Stool Occult Blood POSITIVE (NEGATIVE) Independent Interpretation I performed an independent interpretation of an: CT Scan Interpretation: CT A/P showing bowel wall thickening primarily to transverse/ descending colon. Radiology Impression Discussion of test interpretation with radiology: I have reviewed the radiologist's reading. Radiologist Impression: Procedure(s): CT gi bleed abd pel wo/w IVcon Accession Number(s): [id number] cc: Jose Stephen PA-C; Argelia Kwan Report Number: [id number]: Total DLP = 1292.00 mGy-cm EXAMINATION: CT ABDOMEN AND PELVIS WITHOUT AND WITH CONTRAST GI BLEED PROTOCOL. CLINICAL INFORMATION: Left lower quadrant abdominal pain. History of ulcerative colitis. COMPARISON: November 15, 2022 TECHNIQUE: Multidetector volumetric imaging was performed of the abdomen and pelvis before and after the IV administration of 80 mL of Omnipaque 350 strength intravenous contrast. No reported immediate complications Sagittal and coronal reformatted images were obtained on the technologist's workstation. This CT examination was performed using dose optimization techniques as appropriate, variously including the following: *Automated exposure control *Adjustment of mA and/or kV according to patient size (this includes techniques or standardized protocols for targeted exams where dose is matched to indication/reason for exam; i.e. extremities or head) *Use of iterative reconstruction technique DLP: 1292 mGy centimeter. FINDINGS: LUNG BASES: No acute airspace disease or gross pulmonary nodules in the included lung bases. LIVER, GALLBLADDER, AND BILIARY TREE: Liver measures 16 cm. Normal enhancement pattern. No focal lesion. Portal veins and hepatic veins are patent. No intrahepatic biliary ductal dilatation. No pericholecystic fluid collection or gallbladder wall thickening. No extrahepatic biliary ductal dilatation. PANCREAS: No focal mass. No peripancreatic fluid collection. No main pancreatic ductal dilatation. SPLEEN: 10 cm. No focal lesion. ADRENAL GLANDS: No nodular lesion. KIDNEYS AND URETERS: No hydronephrosis. No nephrolithiasis. No focal renal mass. Normal enhancement pattern of the renal parenchyma and urinary excretion into the collecting system. BLADDER: Fluid-filled. Patent jets, bilaterally. GASTROINTESTINAL TRACT: Segmental areas of concentric wall thickening involving the transverse colon, descending colon and proximal sigmoid colon with increased enhancement and density values from the noncontrast to the portal venous and delayed phases. Mild pericolonic edema pattern. No peripheral enhancing fluid collections in the peritoneal cavity. No ascites. No pneumoperitoneum. No pneumatosis intestinalis. Appendix is normal. No intestinal obstruction pattern. ABDOMINAL WALL: Small tiny fat-containing umbilical hernia. LYMPH NODES: Multiple prominent mesenteric lymph nodes. VASCULAR: No aneurysm or dissection, abdominal aorta. PELVIC VISCERA: Prostate gland is not enlarged. OSSEOUS STRUCTURES: No acute fracture or listhesis. No gross lytic or blastic lesions. Bony pelvis is intact. Coxofemoral joints are intact with normal alignment. CT/CT gi bleed abd pel wo/w IVcon IMPRESSION: Acute/flare ulcerative colitis of with the likely blood products/gastrointestinal bleed and the transverse colon and descending colon. No pneumoperitoneum or intestinal obstruction pattern. Fleischner guidelines were followed. Electronically signed by: Garry Quarles MD 04/05/2024 09:19 AM [facility] [place] External Record Review External record reviewed: Inpatient record Prescription Management I considered prescription management with: Pain Medication, Antibiotic and Other (steroid) Chronic Conditions Patient?s care impacted by: Other (ulcerative colitis) Social Determinants Patient?s care significantly limited by Social Determinants of Health including: Other Social Determinant of Health Medications Administered Discontinued Medications Generic Name Dose Route Start Last Admin Trade Name Freq PRN Reason Stop Dose Admin Sodium Chloride 1,000 mls @ 999 mls/hr 04/05/24 07:15 04/05/24 07:32 Ns IV 04/05/24 08:15 999 mls/hr .Q1H1M MICHELLE Administration Metronidazole 500 mg in 100 mls @ 100 mls/hr 04/05/24 08:15 04/05/24 09:23 Flagyl IV 04/05/24 09:14 100 mls/hr ONCE ONE Administration Iohexol 80 ml 04/05/24 08:37 04/05/24 08:37 Iohexol 350 Mg/Ml 100 Ml Infus..Btl IV 04/05/24 08:38 80 ml ONCE ONE Administration Methylprednisolone Sodium Succinate 125 mg 04/05/24 08:14 04/05/24 09:16 Methylprednisolone Sod Succ 125 Mg/2 Ml Vial IVPUSH 04/05/24 08:15 125 mg ONCE ONE Administration Ondansetron HCl 4 mg 04/05/24 08:10 04/05/24 09:16 Ondansetron Hcl 4 Mg/2 Ml Vial IVPUSH 04/05/24 08:11 4 mg ONCE ONE Administration Critical Care Time Critical Care Time Critical Care Time: Yes Total Critical Care Time: 40 Attestation: Critical care time in the amount of 40 minutes has been provided to the patient in terms of direct patient care, frequent reevaluation, consultation with GI/ hospitalist, review and interpretation of medical data and results, and management of potentially life-threatening conditions. This is all outside of any medical procedures. Discharge Plan Discharge Clinical Impression: Ulcerative colitis, acute, Anemia, Leukocytosis Patient Disposition: Admitted As Inpatient Print Language: Frisian
[2024-04-05 07:22] VITALS: BP 128/59; PULSE 80; RESP 16; TEMP 36.7; O2SAT 96
[2024-04-05 07:29] LABS: OBS Int Ctl Valid YES; OBS1 POSITIVE (NEGATIVE)
[2024-04-05] MEDS: 0.9 % Sodium Chloride 1,000 ML 999 ML IV (07:32)
[2024-04-05 07:51] LABS: C Reactive Protein 2.66 mg/dL (< or = 0.50)
[2024-04-05 08:09] LABS: Erythrocyte Sedimentation Rate 16 MM/HR (0-15)
[2024-04-05] MEDS: iohexoL 350 MG/ML 100 ML INFUS..BTL 80 ML IV (08:37)
[2024-04-05 09:06] LABS: Lipase 24 U/L (8-78)
[2024-04-05] MEDS: methylPREDNISolone Sod Succ 125 MG/2 ML VIAL IVPUSH (09:16)
[2024-04-05] MEDS: ondansetron HCL 4 MG/2 ML VIAL IVPUSH (09:16)
[2024-04-05] MEDS: metroNIDAZOLE/NS 500 MG/100 ML PIGGYBACK 100 MG IV ×2 (09:23→19:43)
[2024-04-05 09:27] VITALS: BP 112/62; PULSE 83; O2SAT 96
--- NOTE | 2024-04-05 10:29 | PHA.MEDREC ---
Addendum entered by Maryam Avelar RPh 04/05/24 11:02: Med rec was reviewed by [facility]. Addendum entered by Maryam Avelar RPh 04/05/24 11:01: Patient told Britney that he last took the mesalamine 3 weeks ago. Since he said he's still taking it, leaving it in med list. Original Note: Pharmacy Consult ? Medication Reconciliation Pharmacy has completed the medication reconciliation. Spoke to patient to confirm med list. Patient states he only takes Mesalamine 0.375 gm 4 tabs daily and he fills at [facility] in [facility]. Called [facility] to confirm and last fill was 12/17/23 for 10 days.
--- NOTE | 2024-04-05 10:50 | P.HPHOSP_ITS ---
History of Present Illness Date of Service: 04/05/24 Chief Complaint: severe abdominal pain, bloody stools 38 yo male with PMH significant for GERD, UC, anxiety, anemia, and nicotine use via vape, who presents to the emergency department for evaluation of severe abdominal pain and bloody and mucous diarrhea. States the bloody stools and pain started around 2 wks. ago, when he ran out of his medication (mesalamine and entyvio). Due to a lapse in insurance, he has not had any medication since. Records indicate he was diagnosed with ulcerative colitis in 2019 via colonoscopy. Patient states the symptoms progressed over the last 24 hrs., coupled with nausea, dizziness and increased fatigue. Denies syncope or falls, vomiting, palpitations, CP, hematuria. Endorses nausea, dyspnea at night but not at present assessment. Review of Systems 2 Constitutional: Comments: Denies wt. loss, fever Endorses fatigue, changes to sleep during this flair, chills reported yesterday (denies today) Eyes: Comments: Denies any change to vision ENT: Comments: Denies headache, vertigo, changes to hearing, congestion, rhinorrhea Cardiovascular: Comments: Denies CP, palpitations, diaphoresis, edema Respiratory: Comments: Denies cough, sputum, hemoptysis, wheezing, pain Endorses dyspnea at NOC Gastrointestinal: Comments: Denies vomiting, changes to appetite Endorses bloody diarrhea x 2 weeks Genitourinary: Comments: Denies discharge, pain, hematuria, urgency or frequency Musculoskeletal: Comments: Denies muscle or joint pain, stiffness or swelling Integumentary/Breasts: Comments: Denies rashes, lesions, itchiness or dryness Neurologic: Comments: Denies syncope, seizures, numbness, tingling, tremors Endorses dizziness prior to arrival Psychiatric: Comments: Denies changes to memory Endorses hx of anxiety Endocrine: Comments: Denies temperature intolerances, sweating, polyuria or dipsia Hematologic/Lymphatic: Comments: Endorses anemia r/t UC Allergic/Immunologic: Comments: Denies [facility] Medical History Ulcerative colitis Family History Father Diabetes Hypertension Mother Tachycardia Daughter In good health Daughter In good health Sister In good health Sister In good health Sister In good health Maternal Grandfather Myocardial infarction Maternal Aunt Stroke Maternal Grandmother Alzheimer disease Surgical History H/O colonoscopy Social History Household Members: Significant Other Housing: Apartment Do you presently have visiting nurse or other home services: No Alcohol intake: current Alcohol intake frequency: holidays/special occasions only Alcohol type: beer, wine and hard liquor Patient Tobacco Use Status: Never used Tobacco Tobacco use type: Smokeless Tobacco Years Smoked: 2016 e-Cigarette/Vaping Use: Currently Using Second Hand Smoke Exposure: No Advance Directives Date on File: 12/13/20 service: No Current occupational status: employed 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[employer] Cognitive needs: No Hearing needs: No Vision needs: No Meds Allergies Allergy/AdvReac Type Severity Reaction Status Date / Time No Known Allergies Allergy Verified 04/05/24 00:17 Active Medications: Current Medications Acetaminophen (Acetaminophen 325 Mg Tablet) 650 mg PO Q6H PRN PRN Reason: Pain, Mild 1-3,fever,headache Calcium Carbonate (Calcium Carbonate 750 Mg Tab.Chew) 750 mg PO Q4H PRN PRN Reason: Heartburn Ciprofloxacin (Cipro) 400 mg in 200 mls @ 200 mls/hr IV Q12H MICHELLE Lactated Ringer's (Lr) 1,000 mls @ 100 mls/hr IVCONT .Q10H MICHELLE Magnesium Hydroxide (Milk Of Magnesia 30 Ml Oral.Susp) 30 ml PO DAILY PRN PRN Reason: Constipation Melatonin (Melatonin 3 Mg Tablet) 6 mg PO BEDTIME PRN PRN Reason: Insomnia Ondansetron HCl (Ondansetron Hcl 4 Mg/2 Ml Vial) 4 mg IVPUSH Q8H PRN PRN Reason: Nausea and Vomiting Sodium Chloride (0.9 % Sodium Chloride Flush 3 Ml Syringe) 3 ml IVFLUSH QSHIFT [facility] Home Medications ?Medication ?Instructions ?Recorded ?Confirmed ?Last Taken ?Type mesalamine 0.375 gram 1.5 g PO DAILY 04/05/24 04/05/24 03/07/24 History capsule,extended release 24 hr Physical Exam 2 Vital Signs and Narrative: Vital Signs: Last Vital Signs Temp 98.1 F 04/05/24 07:22 Pulse 83 04/05/24 09:27 Resp 16 04/05/24 07:22 BP 112/62 04/05/24 09:27 Pulse Ox 96 04/05/24 09:27 O2 Del Method Room Air 04/05/24 09:27 BMI result Body Mass Index 27.3 Const: General: cooperative, no acute distress, alert and awake Nutritional Appearance: overweight Orientation/consciousness: patient oriented x3 L imitations: no limitations HEENT: Head: Yes normal to inspection Ears: hearing grossly normal bilaterally Mouth: Normal oral and palatal mucosa present Eyes: General: appearance normal, both eyes and all related structures V isual Whitley: normal visual whitley by confrontation Conjunctivae: c onjunctivae normal Pupils: Equal, round and reactive pupils present EOM: E OMs intact bilaterally Neck: Yes normal visual inspection, Yes full ROM and Yes no lymphadenopathy Resp: Effort & Inspection: normal respiratory effort and able to speak in complete sentences Auscultation: clear to auscultation bilaterally Cardio: Jugular venous distension: no JVD Rate: regular rate Rhythm: r egular rhythm GI: Palpation (GI): Tenderness to palpation present (GI) in the LLQ A uscultation: normal bowel sounds : General: Yes no CVA tenderness Back/Spine/Pelvis: Back: no CVA tenderness Cervical Spine: cervical ROM normal Thoracic/Lumbar Spine: thoraco-lumbar ROM normal Skin: General skin exam: no rashes or lesions noted Wounds: no wounds Neuro: General: patient oriented x3, no focal motor deficits and CN's II-XI intact bilaterally Cranial nerves: Yes Equal, round and reactive pupils present Extrem: General: Yes full ROM and Yes capillary refill normal Psych: Appearance: grossly normal Mental Status: mental status grossly normal Speech and movement: Normal speech and movement present Affect: n ormal affect Attitude: cooperative Results Labs 04/05/24 11:15 04/05/24 00:43 Labs: Laboratory Results - last 24 hr 04/05/24 04/05/24 00:43 07:21 MCV 68.4 L MCH 19.8 L MCHC 28.9 L RDW 22.3 H Plt Count 751 H D MPV 9.2 L Immature Gran % (Auto) 0.5 H Neut % (Auto) 78.6 H Lymph % (Auto) 7.8 L [place] % (Auto) 6.5 Eos % (Auto) 6.1 H Baso % (Auto) 0.5 Lymph # (Auto) 1.3 [place] # (Auto) 1.1 Eos # (Auto) 1.0 H Baso # (Auto) 0.1 Abs Immat Gran (auto) 0.08 H Absolute Neuts (auto) 13.4 H Absolute Nucleated RBC 0.040 H Nucleated RBC % (auto) 0.2 ESR 16 H Anion Gap 14 Estim Creat Clear Calc 94.5 Estimated GFR > 60 Random Glucose 98 Calcium 8.7 Total Bilirubin 0.3 AST 15 ALT 6 Alkaline Phosphatase 61 C-Reactive Protein 2.66 H Total Protein 7.1 Albumin 3.7 Lipase 24 Stool Occult Blood POSITIVE Imaging Radiologist's Impressions: Impressions Abdomen/Pelvis CT 04/05/24 08:28 IMPRESSION: Acute/flare ulcerative colitis of with the likely blood products/gastrointestinal bleed and the transverse colon and descending colon. No pneumoperitoneum or intestinal obstruction pattern. Fleischner guidelines were followed. Electronically signed by: Garry Quarles MD 04/05/2024 09:19 AM [facility] [place] Assessment and Plan (1) Leukocytosis: Status: Acute (2) Anemia: Status: Acute (3) Ulcerative colitis, acute: Status: Acute Plan 38 yo male with PMH significant for GERD, UC, anxiety, anemia, and nicotine use via vape, who presents to the emergency department for evaluation of severe abdominal pain and bloody and mucous diarrhea. Bloody diarrhea with abdominal pain secondary to UC flair CT A/P showed Acute/flare ulcerative colitis of with the likely blood products/gastrointestinal bleed and the transverse colon and descending colon. No pneumoperitoneum or intestinal obstruction pattern. H&H 8.5/29.4, repeat 6hrs., will transfuse as needed WBC 17 stool studies, Cdiff- pending Will treat with IV Solu-Medrol 40 mg q.8 hours, IV fluid, continue IV Flagyl and IV Cipro initiated in the emergency room NPO for now Anemia secondary to acute on chronic blood loss secondary to UC Trending H&H Iron studies ordered Transfuse PRN Code status: Full DVT prophylaxis: pneumoboots In my clinical judgment patient required 2 night inpatient hospitalization for treatment of UC flare with IV antibiotics IV fluid and close clinical monitoring. Quality Stroke Does the patient have a stroke diagnosis?: No VTE Prior VTE?: No VTE Risk Level:: Medical - moderate - high VTE Device Contraindication: N/A - Device Ordered VTE Drug Contraindication: Treatment Not Indicated
--- NOTE | 2024-04-05 11:01 | PC.NURSE ---
Called pharmacy for Anabell.
--- NOTE | 2024-04-05 11:10 | P.CNGI_ITS ---
History of Present Illness Data of Consult Service Date: 04/05/24 Primary Care Provider: Jose Stephen PA-C HPI Reason for consult: colitis flare 38 y/o man with hx of UC who I am seeing for assessment for suspected colitis flare. Patient known to have UC for several years, was on entyvio which was working well, but he lost insurance and been off for about 6-7 months. He was ok till 3 weeks ago and started noting, worsening diarrhea mixed with blood as well as cramp vague lower abdominal pains, worse with dairy and 6/10 in severity, with no relieving factors. Denies nsaid use, smoking, alcohol. No nausea, vomiting, fever, and says appetite is good, weight going down. No sick contacts and no antibiotics recently, LABS: anemia with hgb around 8 g/dl, elevated plts, low iron, alb nml, crp 3 Imaging: thickneded loops of bowel transverse and descending Review of Systems 2 Review of Systems: Constitutional : + Weight loss, No Fever, No Chills ENT/Mouth : No sore throat, No Rhinorrhea Eyes: No Swelling, No Redness Cardiovascular : No Chest Pain, No SOB, No Edema Respiratory : No Cough, No Sputum, No Wheezing Gastrointestinal : see HPI Genitourinary : NO Dysuria, No Urinary Frequency, No Hematuria, No Urgency Musculoskeletal : no joint pain, No Myalgias, No Joint Swelling Skin : No Skin Lesions, No rash Neuro : No Weakness, No Numbness, No Dizziness, No Headache Psych : No Anxiety/Panic, No Depression Heme/Lymph: No Bruising, No Lymphadenopathy Endocrine : No Polyuria, No Polydipsia All other systems reviewed and are negative. [facility] Past Medical History Medical History Ulcerative colitis Family History Family History Father Diabetes Hypertension Mother Tachycardia Daughter In good health Daughter In good health Sister In good health Sister In good health Sister In good health Maternal Grandfather Myocardial infarction Maternal Aunt Stroke Maternal Grandmother Alzheimer disease Surgical History Surgical History H/O colonoscopy Social History Social History Household Members: None Housing: Apartment Do you presently have visiting nurse or other home services: No Alcohol intake: current Alcohol intake frequency: holidays/special occasions only Alcohol type: beer, wine and hard liquor Patient Tobacco Use Status: Former Tobacco user Tobacco use type: Cigarette Years Smoked: 2017 Smoked in Last 30 Days: Yes e-Cigarette/Vaping Use: Currently Using Second Hand Smoke Exposure: No Use of substances other than those prescribed or required for medical reasons: No Advance Directives: Yes Advance Directives on File: Yes Advance Directives Date on File: 12/13/20 Do you have a plan to hurt others: No Plan service: No Current occupational status: employed 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[employer] Cognitive needs: No Hearing needs: No Vision needs: No Meds Allergies Allergy/AdvReac Type Severity Reaction Status Date / Time No Known Allergies Allergy Verified 04/05/24 00:17 Active Medications: Current Medications Acetaminophen (Acetaminophen 325 Mg Tablet) 650 mg PO Q6H PRN PRN Reason: Pain, Mild 1-3,fever,headache Calcium Carbonate (Calcium Carbonate 750 Mg Tab.Chew) 750 mg PO Q4H PRN PRN Reason: Heartburn Ciprofloxacin (Cipro) 400 mg in 200 mls @ 200 mls/hr IV Q12H [facility] Lactated Ringer's (Lr) 1,000 mls @ 100 mls/hr IVCONT .Q10H [facility] Magnesium Hydroxide (Milk Of Magnesia 30 Ml Oral.Susp) 30 ml PO DAILY PRN PRN Reason: Constipation Melatonin (Melatonin 3 Mg Tablet) 6 mg PO BEDTIME PRN PRN Reason: Insomnia Ondansetron HCl (Ondansetron Hcl 4 Mg/2 Ml Vial) 4 mg IVPUSH Q8H PRN PRN Reason: Nausea and Vomiting Sodium Chloride (0.9 % Sodium Chloride Flush 3 Ml Syringe) 3 ml IVFLUSH QSHIFT [facility] Home Medications ?Medication ?Instructions ?Recorded ?Confirmed ?Last Taken ?Type mesalamine 0.375 gram 1.5 g PO DAILY 04/05/24 04/05/24 03/07/24 History capsule,extended release 24 hr Physical Exam 2 Vital Signs: Vital Signs: Last Vital Signs Temp 98.1 F 04/05/24 07:22 Pulse 83 04/05/24 09:27 Resp 16 04/05/24 07:22 BP 112/62 04/05/24 09:27 Pulse Ox 96 04/05/24 09:27 O2 Del Method Room Air 04/05/24 09:27 BMI result Body Mass Index 27.3 EXAM: GENERAL: The patient is well developed and nontoxic. VITAL SIGNS:see workflow HEENT: Nonicteric sclerae, PERRLA, EOMI. Oropharynx clear. Moist mucous membranes. Conjunctivae appear pale. No thyroid mass. CHEST: Chest wall is nontender. HEART: Regular rate and rhythm without murmurs. LUNGS: Clear to auscultation bilaterally. ABDOMEN: Soft, positive bowel sounds, nontender, no organomegaly.no flank tenderness SKIN: No rash, no excessive bruising, petechiae, or purpura. NEUROLOGIC: Cranial nerves II-XII intact without motor/sensory deficit. Psych: normal affect Results Labs 04/05/24 11:15 04/05/24 00:43 Labs: Short CBC 04/05/24 Range/Units 00:43 WBC 17.0 H (4.8-10.8) X10*3/uL Hgb 8.5 L D (14.0-18.0) g/dl Hct 29.4 L D (42.0-52.0) % Plt Count 751 H D (160-400) X10*3/uL BMP 04/05/24 00:43 Sodium 140 Potassium 3.6 Chloride 106 Carbon Dioxide 24 BUN 8 L Creatinine 1.07 Calcium 8.7 Liver Function 04/05/24 Range/Units 00:43 Total Bilirubin 0.3 (0.0-1.0) mg/dL AST 15 (5-37) U/L ALT 6 (0-40) U/L Alkaline Phosphatase 61 (39-117) U/L Albumin 3.7 (3.5-5.0) g/dL Imaging CT scan - abdomen: Attestation: I personally reviewed and interpreted this imaging study as follows: (thickened loops of colon, stomach ) Assessment and Plan (1) Ulcerative colitis, acute: Status: Acute Plan 1/ Acute UC - severe, been off medications for 6-7 months. Need to r/o infectious etiology, no evidence of toxic megacolon at this time PLAN: 1/ check c diff and stool PCR 2/ cont with solumedrol 20 mg IV q 8 hr for 48 hr then transition to PO 3/ cont with flagyl and cipro to prevent bacterial translocation 4/ surgical consult, 5/ eventually restart biologic in naer future, recheck TB spot Procedures Date of Service Date of Service: 04/05/24
[2024-04-05] MEDS: Lactated Ringers 1,000 ML 100 ML IVCONT ×2 (11:15→20:27)
[2024-04-05] MEDS: Ciprofloxacin Lactate/D5W 400 MG/200 ML PIGGYBACK 200 MG IV ×2 (11:15→20:43)
[2024-04-05 11:21] LABS: Iron 282 mcg/dL (45-160); Percent Iron Saturation 76 % (15-50); Total Iron Binding Capacity 370 mcg/dL (228-428); Unsaturated Iron Binding 88 ug/dL
[2024-04-05 11:23] VITALS: BP 108/62; PULSE 82; RESP 16; O2SAT 96
[2024-04-05 11:37] LABS: Ferritin 20 ng/mL (20-250)
[2024-04-05 12:09] LABS: Hematocrit 27.2 % (42.0-52.0); Hemoglobin 7.8 g/dl (14.0-18.0); Mean Corpuscular HGB Conc 28.7 g/dl (31.0-36.0); Mean Corpuscular Hemoglobin 19.7 pg (27.0-33.0); Mean Corpuscular Volume 68.9 fL (80.0-98.0); Mean Platelet Volume 9.6 fL (9.4-12.4); Platelet Count 732 X10*3/uL (160-400); Red Blood Count 3.95 X10*6/uL (4.60-5.80)
[2024-04-05] MEDS: methylPREDNISolone Sod Succ 40 MG/ML VIAL 20 MG IVPUSH (19:42)
[2024-04-05] MEDS: 0.9 % Sodium Chloride Flush 3 ML SYRINGE IVFLUSH ×2 (19:43→20:43)
[2024-04-05 20:15] VITALS: BP 109/62; PULSE 68; RESP 19; TEMP 36.6; O2SAT 98
[2024-04-05 20:25] VITALS: BP 103/59; PULSE 77; RESP 20; TEMP 36.6; O2SAT 97
[2024-04-05 20:35] VITALS: BMI 27.9
[2024-04-05 21:46] LABS: Appearance Urine Clear; Color Urine Yellow; Glucose Urine UA Negative (Negative); Leukocyte Esterase Urine Negative (Negative); Nitrite Urine Negative (Negative); PH 5.5 (5.0-9.0); Specific Gravity - Urine 1.025 (1.005-1.025); Urine Blood Negative (Negative); Urine Ketones 40 mg/dL (Negative); Urine Protein Negative (Neg-Trace)
[2024-04-05 22:32] LABS: CDiff Gene PCR NEGATIVE (Negative)
[2024-04-06] MEDS: metroNIDAZOLE/NS 500 MG/100 ML PIGGYBACK 100 MG IV ×4 (00:47→23:54)
[2024-04-06] MEDS: methylPREDNISolone Sod Succ 40 MG/ML VIAL 20 MG IVPUSH ×4 (00:47→23:54)
[2024-04-06 03:29] VITALS: BP 114/58; PULSE 67; RESP 16; TEMP 36.7; O2SAT 97
[2024-04-06 07:17] VITALS: BP 108/59; PULSE 67; RESP 16; TEMP 36.7; O2SAT 99
[2024-04-06] MEDS: Lactated Ringers 1,000 ML 100 ML IVCONT ×2 (08:36→20:52)
[2024-04-06] MEDS: 0.9 % Sodium Chloride Flush 3 ML SYRINGE IVFLUSH ×2 (08:36→20:56)
[2024-04-06] MEDS: Ciprofloxacin Lactate/D5W 400 MG/200 ML PIGGYBACK 200 MG IV ×2 (08:36→20:56)
--- NOTE | 2024-04-06 09:19 | MHC.CM.PN ---
CM MET WITH PT AT BEDSIDE. PT IS FUNCTIONALLY INDEPENDENT AND EMPLOYED F/T. PT REQUESTS A NOTE FOR WORK STATING DATES HE WAS HOSPITALIZED. +HCP ON FILE AND VERIFIED. PCP ANDREEA VERDUGO DP: HOME, NO SERVICES ANTICIPATED. PT MAY NEED RIDE HOME VIA LYFT. CM WILL CONTINUE TO FOLLOW FOR ANY CHANGE TO DC PLAN/NEEDS
[2024-04-06 09:21] LABS: Hematocrit 26.6 % (42.0-52.0); Hemoglobin 7.8 g/dl (14.0-18.0); Mean Corpuscular HGB Conc 29.3 g/dl (31.0-36.0); Mean Corpuscular Hemoglobin 20.1 pg (27.0-33.0); Mean Corpuscular Volume 68.6 fL (80.0-98.0); Mean Platelet Volume 9.4 fL (9.4-12.4); Platelet Count 721 X10*3/uL (160-400); Red Blood Count 3.88 X10*6/uL (4.60-5.80); Red Cell Distribution Width 22.2 % (11.0-16.0); White Blood Count 8.6 X10*3/uL (4.8-10.8)
[2024-04-06 09:34] LABS: Anion Gap 12 (12-20); Blood Urea Nitrogen 13 mg/dL (9-16); Calcium 8.2 mg/dL (8.4-10.2); Carbon Dioxide 22 mmol/L (22-29); Chloride 108 mmol/L (96-108); Creatinine Clr Calc Pharmacy 105.5; Estimated Glomerular Filt Rate > 60; Glucose Random 151 mg/dL (60-115); Potassium 3.8 mmol/L (3.3-5.1); Sodium 138 mmol/L (135-145)
--- NOTE | 2024-04-06 11:00 | HO.PM.IMPN ---
Subjective Subjective Date of Service: 04/06/24 Interval History: Being followed for ulcerative colitis flare Feeling better, feels hungry no further episodes of bloody stools but has had small brown liquidy stool, denies fever, no chills, no nausea, no vomiting no lightheadedness or dizziness. Review of Systems All other system reviewed and are negative Physical Exam Vital Signs: Vital Signs: Last Vital Signs Temp 98.1 F 04/06/24 07:17 Pulse 67 04/06/24 07:17 Resp 16 04/06/24 07:17 BP 108/59 L 04/06/24 07:17 Pulse Ox 99 04/06/24 07:17 O2 Del Method Room Air 04/06/24 07:17 BMI result Body Mass Index 27.9 Const: Other: General in no acute distress. No JVD Neck no JVD. CVS regular rate rhythm, Respiratory lungs clear to auscultation, no respiratory distress, no wheeze, no rhonchi. Gastrointestinal abdomen soft, mild left lower quadrant discomfort, bowel sounds audible, no guarding , no rigidity. Extremities no edema. Neuro non focal Skin no rash/pallor Appropriate affect Objective Data Active Medications Acetaminophen (Acetaminophen 325 Mg Tablet) 650 mg PO Q6H PRN PRN Reason: Pain, Mild 1-3,fever,headache Calcium Carbonate (Calcium Carbonate 750 Mg Tab.Chew) 750 mg PO Q4H PRN PRN Reason: Heartburn Ciprofloxacin (Cipro) 400 mg in 200 mls @ 200 mls/hr IV Q12H [facility] Last Infusion: 04/06/24 09:38 Dose: Infused Documented By: CLEMENTINA Lactated Ringer's (Lr) 1,000 mls @ 100 mls/hr IVCONT .Q10H [facility] Last Admin: 04/06/24 08:36 Dose: 100 mls/hr Documented By: CLEMENTINA Metronidazole (Flagyl) 500 mg in 100 mls @ 100 mls/hr IV Q8H [facility] Last Infusion: 04/06/24 09:38 Dose: Infused Documented By: CLEMENTINA Magnesium Hydroxide (Milk Of Magnesia 30 Ml Oral.Susp) 30 ml PO DAILY PRN PRN Reason: Constipation Melatonin (Melatonin 3 Mg Tablet) 6 mg PO BEDTIME PRN PRN Reason: Insomnia Methylprednisolone Sodium Succinate (Methylprednisolone Sod Succ 40 Mg/Ml Vial) 20 mg IVPUSH Q8H [facility] Last Admin: 04/06/24 08:36 Dose: 20 mg Documented By: CLEMENTINA Ondansetron HCl (Ondansetron Hcl 4 Mg/2 Ml Vial) 4 mg IVPUSH Q8H PRN PRN Reason: Nausea and Vomiting Sodium Chloride (0.9 % Sodium Chloride Flush 3 Ml Syringe) 3 ml IVFLUSH QSHIFT [facility] Last Admin: 04/06/24 08:36 Dose: 3 ml Documented By: CLEMENTINA Labs 04/06/24 09:14 04/06/24 09:14 Labs: Laboratory Results - last 24 hr 04/05/24 04/05/24 04/05/24 00:43 11:15 21:35 MCV 68.9 L MCH 19.7 L MCHC 28.7 L RDW 22.0 H Plt Count 732 H MPV 9.6 Absolute Nucleated RBC 0.000 Nucleated RBC % (auto) 0.0 Anion Gap Estim Creat Clear Calc Estimated GFR Random Glucose Calcium Iron 282 H TIBC 370 % Saturation 76 H Unsat Iron Binding 88 Ferritin 20 Urine Color Yellow Urine Appearance Clear Urine pH 5.5 Ur Specific [place] 1.025 Urine Protein Negative Urine Glucose (UA) Negative Urine Ketones 40 Urine Blood Negative Urine Nitrite Negative Ur Leukocyte Esterase Negative C. difficile Tox B Gene NEGATIVE 04/06/24 09:14 MCV 68.6 L MCH 20.1 L MCHC 29.3 L RDW 22.2 H Plt Count 721 H MPV 9.4 Absolute Nucleated RBC 0.000 Nucleated RBC % (auto) 0.0 Anion Gap 12 Estim Creat Clear Calc 105.5 Estimated GFR > 60 Random Glucose 151 H Calcium 8.2 L Iron TIBC % Saturation Unsat Iron Binding Ferritin Urine Color Urine Appearance Urine pH Ur Specific [place] Urine Protein Urine Glucose (UA) Urine Ketones Urine Blood Urine Nitrite Ur Leukocyte Esterase C. difficile Tox B Gene Assessment and Plan (1) Anemia: Status: Acute (2) Leukocytosis: Status: Acute Plan 38 yo male with PMH significant for GERD, UC, anxiety, anemia, and nicotine use via vape, who presents to the emergency department for evaluation of severe abdominal pain and bloody and mucous diarrhea. Acute flare of ulcerative colitis Bloody diarrhea and abdominal pain resolved CT A/P showed Acute/flare ulcerative colitis of with the likely blood products/gastrointestinal bleed and the transverse colon and descending colon. No pneumoperitoneum or intestinal obstruction pattern. H&H 8.5/29.4, on admission dropped to 7.8/26.6, iron studies consistent with iron deficiency WBC 17 on admission improved to 8.6, CRP 2.66 stool studies pending, Cdiff- neg cont. IV Solu-Medrol 40 mg q.8 hours, IV fluid, IV Flagyl and IV Cipro started on 04/05 Start clear liquid diet and advance as tolerated DC home on tapering steroids as per GI. Anemia secondary to acute on chronic blood loss secondary to UC Trending H&H Iron studies consistent with iron deficiency anemia Transfuse iron Venofer 100 mg daily x2 days Code status: Full DVT prophylaxis: pneumoboots In my clinical judgment patient requires continued inpatient hospitalization for treatment of UC flare with IV antibiotics, IV fluid ,and close clinical monitoring. Quality Stroke Does the patient have a stroke diagnosis?: No VTE Prior VTE?: No VTE Risk Level:: Medical - moderate - high VTE Device Contraindication: N/A - Device Ordered VTE Drug Contraindication: Treatment Not Indicated
[2024-04-06 11:23] LABS: Iron 11 mcg/dL (45-160); Percent Iron Saturation 4 % (15-50); Total Iron Binding Capacity 267 mcg/dL (228-428); Unsaturated Iron Binding 256 ug/dL
--- NOTE | 2024-04-06 12:38 | PM.GIPN ---
Subjective Subjective Date of Service: 04/06/24 Interval History: doing better more energy stools are more firm no blood no abdominal pain taking PO easily Critical Care Time (minutes): 0 Physical Exam Vital Signs: Vital Signs: Last Vital Signs Temp 98.1 F 04/06/24 07:17 Pulse 67 04/06/24 07:17 Resp 16 04/06/24 07:17 BP 108/59 L 04/06/24 07:17 Pulse Ox 99 04/06/24 07:17 O2 Del Method Room Air 04/06/24 07:17 BMI result Body Mass Index 27.9 EXAM: GENERAL: The patient is well developed and nontoxic. VITAL SIGNS:see workflow HEENT: Nonicteric sclerae, PERRLA, EOMI. Oropharynx clear. Moist mucous membranes. Conjunctivae appear well perfused. No thyroid mass. CHEST: Chest wall is nontender. HEART: Regular rate and rhythm without murmurs. LUNGS: Clear to auscultation bilaterally. ABDOMEN: Soft, positive bowel sounds, nontender, no organomegaly.no flank tenderness SKIN: No rash, no excessive bruising, petechiae, or purpura. NEUROLOGIC: Cranial nerves II-XII intact without motor/sensory deficit. Psych: normal affect Objective Data Labs 04/06/24 09:14 04/06/24 09:14 Labs: Laboratory Results - last 24 hr 04/05/24 04/05/24 04/06/24 00:43 21:35 09:14 WBC 8.6 RBC 3.88 L Hgb 7.8 L Hct 26.6 L MCV 68.6 L MCH 20.1 L MCHC 29.3 L RDW 22.2 H Plt Count 721 H MPV 9.4 Absolute Nucleated RBC 0.000 Nucleated RBC % (auto) 0.0 Sodium 140 138 Potassium 3.6 3.8 Chloride 106 108 Carbon Dioxide 24 22 Anion Gap 14 12 BUN 8 L 13 Creatinine 1.07 1.04 Estim Creat Clear Calc 94.5 105.5 Estimated GFR > 60 > 60 Random Glucose 98 151 H Calcium 8.7 8.2 L Iron 282 H 11 L TIBC 370 267 % Saturation 76 H 4 L Unsat Iron Binding 88 256 Ferritin 20 Total Bilirubin 0.3 AST 15 ALT 6 Alkaline Phosphatase 61 C-Reactive Protein 2.66 H Total Protein 7.1 Albumin 3.7 Lipase 24 Urine Color Yellow Urine Appearance Clear Urine pH 5.5 Ur Specific [place] 1.025 Urine Protein Negative Urine Glucose (UA) Negative Urine Ketones 40 Urine Blood Negative Urine Nitrite Negative Ur Leukocyte Esterase Negative C. difficile Tox B Gene NEGATIVE Procedures Date of Service Date of Service: 04/06/24 Progress Note: A&P Assessment and plan (1) Ulcerative colitis, acute: Status: Acute Plan 1/ acute UC flare PLAN: 1/ 24 hr more of IV then transition to PO long taper over 4-6 weeks 2/ complete ABX course 7 d 3/ iron supplementation 4/ I will arrange o/p entyvio, reinduction dosing first -pls get TB spot Time Spent With Patient Time: Total time managing care of this patient today ____ minutes. Quality Stroke Does the patient have a stroke diagnosis?: No VTE Prior VTE?: No VTE Risk Level:: Medical - moderate - high VTE Device Contraindication: N/A - Device Ordered VTE Drug Contraindication: Treatment Not Indicated
[2024-04-06 14:17] LABS: Adenovirus F 40/41 Not Detected (Not Detect.); Astrovirus Not Detected (Not Detect.); Campylobacter Not Detected (Not Detect.); Cryptosporidium Not Detected (Not Detect.); Cyclospora cayetanensis Not Detected (Not Detect.); E. coli EAEC Not Detected (Not Detect.); E. coli EPEC Not Detected (Not Detect.); E. coli ETEC Not Detected (Not Detect.); E. coli STEC Not Detected (Not Detect.); Entamoeba histolytica Not Detected (Not Detect.); Giardia lamblia Not Detected (Not Detect.); Norovirus GI/GII Not Detected (Not Detect.); Plesiomonas shigelloides Not Detected (Not Detect.); Rotavirus A Not Detected (Not Detect.); Salmonella Not Detected (Not Detect.); Sapovirus Not Detected (Not Detect.); Shigella sp./EIEC Not Detected (Not Detect.); Vibrio Not Detected (Not Detect.); Vibrio Cholerae Not Detected (Not Detect.); Yersinia enterocolitica Not Detected (Not Detect.)
[2024-04-06 15:06] VITALS: BP 108/54; PULSE 80; RESP 20; TEMP 36.8; O2SAT 96
[2024-04-06 19:20] VITALS: BP 113/63; PULSE 76; RESP 20; TEMP 36.7; O2SAT 97
[2024-04-07 03:37] VITALS: BP 109/55; PULSE 70; RESP 18; TEMP 36.4; O2SAT 96
[2024-04-07] MEDS: Lactated Ringers 1,000 ML 100 ML IVCONT (06:09)
[2024-04-07 06:27] LABS: Hematocrit 27.6 % (42.0-52.0); Mean Platelet Volume 9.8 fL (9.4-12.4); NRBC Pct Auto 0.3 /100WBC (0.0-0.2); Platelet Count 782 X10*3/uL (160-400); Red Cell Distribution Width 22.4 % (11.0-16.0); White Blood Count 9.7 X10*3/uL (4.8-10.8)
[2024-04-07 06:44] LABS: Anion Gap 12 (12-20); Blood Urea Nitrogen 7 mg/dL (9-16); Calcium 8.6 mg/dL (8.4-10.2); Carbon Dioxide 25 mmol/L (22-29); Chloride 108 mmol/L (96-108); Creatinine Clr Calc Pharmacy 121.9; Estimated Glomerular Filt Rate > 60; Glucose Random 118 mg/dL (60-115); Potassium 4.2 mmol/L (3.3-5.1); Sodium 141 mmol/L (135-145)
[2024-04-07 07:04] VITALS: BP 113/61; PULSE 63; RESP 18; TEMP 36.7; O2SAT 97
[2024-04-07 07:42] LABS: C Reactive Protein 1.58 mg/dL (< or = 0.50)
[2024-04-07] MEDS: methylPREDNISolone Sod Succ 40 MG/ML VIAL 20 MG IVPUSH (08:40)
[2024-04-07] MEDS: Ciprofloxacin Lactate/D5W 400 MG/200 ML PIGGYBACK 200 MG IV (08:46)
[2024-04-07] MEDS: metroNIDAZOLE/NS 500 MG/100 ML PIGGYBACK 100 MG IV (08:46)
[2024-04-07] MEDS: 0.9 % Sodium Chloride Flush 3 ML SYRINGE IVFLUSH (09:27)
[2024-04-07] MEDS: predniSONE 20 MG TABLET 40 MG PO (10:42)
[2024-04-07] MEDS: Iron Sucrose Complex 200 MG/10 ML VIAL 100 MG IVPUSH (10:45)
--- NOTE | 2024-04-07 11:45 | P.DS_ITS ---
DS: Providers Provider Date of Service: 04/07/24 Date of admission: 04/05/24 10:39 Date of discharge: 04/07/24 Primary care physician: Jose Stephen PA-C DS: Diagnosis Discharge Diagnosis (1) Ulcerative colitis, acute: Status: Acute (2) Iron deficiency anemia: Status: Acute DS: Summary Hospital Course Hospital Course: From the history and physical by the admitting hospitalist, Saadia Romeo MD, : 38 yo male with PMH significant for GERD, UC, anxiety, anemia, and nicotine use via vape, who presents to the emergency department for evaluation of severe abdominal pain and bloody and mucous diarrhea. States the bloody stools and pain started around 2 wks. ago, when he ran out of his medication (mesalamine and entyvio). Due to a lapse in insurance, he has not had any medication since. Records indicate he was diagnosed with ulcerative colitis in 2019 via colonoscopy. Patient states the symptoms progressed over the last 24 hrs., coupled with nausea, dizziness and increased fatigue. Denies syncope or falls, vomiting, palpitations, CP, hematuria. Endorses nausea, dyspnea at night but not at present assessment. CT A/P showed acute flare of ulcerative colits with the likely blood products in the transverse colon and descending colon. No pneumoperitoneum or intestinal obstruction pattern. He was admitted to the medical-surgical unit and treated with IV steroids and ciprofloxacin + metronidazole for 2 days. He was also given IV iron for anemia. Clostridium difficile PCR was negative. Abdominal pain and bloody diarrhea resolved. Diet was advanced with good tolerance. G astroenterology was consulted and recommended discharging home on antibiotics and a steroid taper. He was discharged on 5 days of levofloxacin + metronidazole plus a 4-week prednisone taper plus oral iron. He will follow up with [facility] for Entyvio re-induction. Time Attestation Discharge Coordination Time (in mins): 45 Quality: Safe Use of Opioids Does Pt have an Active Cancer Diagnosis on the Problem List?: No Quality: Stroke Does the patient have a stroke diagnosis?: No Physical Exam Vital Signs: Vital Signs: Last Vital Signs Temp 98.1 F 04/07/24 07:04 Pulse 63 04/07/24 07:04 Resp 18 04/07/24 07:04 BP 113/61 04/07/24 07:04 Pulse Ox 97 04/07/24 07:04 O2 Del Method Room Air 04/07/24 07:04 BMI result Body Mass Index 27.9 Gen: in no acute distress HEENT: sclera anicteric, moist mucus membranes Neck: supple Lungs: clear to auscultation bilaterally Heart: regular rate and rhythm, no murmurs Abd: soft, non-tender, non-distended Ext: no edema Skin: warm/well-perfused Neuro: alert and oriented x3, no focal findings Psych: appropriate affect DS: Data Data Completed and Pending Completed studies during hospitalization [Text1]: Laboratory Results WBC 9.7 X10*3/uL (4.8-10.8) 04/07/24 05:58 RBC 4.00 X10*6/uL (4.60-5.80) L 04/07/24 05:58 Hgb 8.0 g/dl (14.0-18.0) L 04/07/24 05:58 Hct 27.6 % (42.0-52.0) L 04/07/24 05:58 MCV 69.0 fL (80.0-98.0) L 04/07/24 05:58 MCH 20.0 pg (27.0-33.0) L 04/07/24 05:58 MCHC 29.0 g/dl (31.0-36.0) L 04/07/24 05:58 RDW 22.4 % (11.0-16.0) H 04/07/24 05:58 Plt Count 782 X10*3/uL (160-400) H 04/07/24 05:58 MPV 9.8 fL (9.4-12.4) 04/07/24 05:58 Immature Gran % (Auto) 0.5 % (0.0-0.4) H 04/05/24 00:43 Neut % (Auto) 78.6 % (45-73) H 04/05/24 00:43 Lymph % (Auto) 7.8 % (20-40) L 04/05/24 00:43 [place] % (Auto) 6.5 % (2-11) 04/05/24 00:43 Eos % (Auto) 6.1 % (0-4) H 04/05/24 00:43 Baso % (Auto) 0.5 % (0-2) 04/05/24 00:43 Lymph # (Auto) 1.3 X10*3/uL (1.2-4.9) 04/05/24 00:43 [place] # (Auto) 1.1 X10*3/uL (0.1-1.2) 04/05/24 00:43 Eos # (Auto) 1.0 X10*3/uL (0.0-0.4) H 04/05/24 00:43 Baso # (Auto) 0.1 X10*3/uL (0.0-0.2) 04/05/24 00:43 Abs Immat Gran (auto) 0.08 X10*3/uL (0.00-0.03) H 04/05/24 00:43 Absolute Neuts (auto) 13.4 x10*3/uL (2.0-8.3) H 04/05/24 00:43 Absolute Nucleated RBC 0.030 X10*3/uL (0.0-0.012) H 04/07/24 05:58 Nucleated RBC % (auto) 0.3 /100WBC (0.0-0.2) H 04/07/24 05:58 ESR 16 MM/HR (0-15) H 04/05/24 00:43 Sodium 141 mmol/L (135-145) 04/07/24 05:58 Potassium 4.2 mmol/L (3.3-5.1) 04/07/24 05:58 Chloride 108 mmol/L (96-108) 04/07/24 05:58 Carbon Dioxide 25 mmol/L (22-29) 04/07/24 05:58 Anion Gap 12 (12-20) 04/07/24 05:58 BUN 7 mg/dL (9-16) L 04/07/24 05:58 Creatinine 0.90 mg/dL (0.5-1.4) 04/07/24 05:58 Estim Creat Clear Calc 121.9 04/07/24 05:58 Estimated GFR > 60 04/07/24 05:58 Random Glucose 118 mg/dL (60-115) H 04/07/24 05:58 Calcium 8.6 mg/dL (8.4-10.2) 04/07/24 05:58 Iron 11 mcg/dL (45-160) L 04/06/24 09:14 TIBC 267 mcg/dL (228-428) 04/06/24 09:14 % Saturation 4 % (15-50) L 04/06/24 09:14 Unsat Iron Binding 256 ug/dL 04/06/24 09:14 Ferritin 20 ng/mL (20-250) 04/05/24 00:43 Total Bilirubin 0.3 mg/dL (0.0-1.0) 04/05/24 00:43 AST 15 U/L (5-37) 04/05/24 00:43 ALT 6 U/L (0-40) 04/05/24 00:43 Alkaline Phosphatase 61 U/L (39-117) 04/05/24 00:43 C-Reactive Protein 1.58 mg/dL (< or = 0.50) H 04/07/24 05:58 Total Protein 7.1 g/dL (6.5-8.0) 04/05/24 00:43 Albumin 3.7 g/dL (3.5-5.0) 04/05/24 00:43 Lipase 24 U/L (8-78) 04/05/24 00:43 Urine Color Yellow 04/05/24 21:35 Urine Appearance Clear 04/05/24 21:35 Urine pH 5.5 (5.0-9.0) 04/05/24 21:35 Ur Specific [place] 1.025 (1.005-1.025) 04/05/24 21:35 Urine Protein Negative mg/dL (Neg-Trace) 04/05/24 21:35 Urine Glucose (UA) Negative mg/dL (Negative) 04/05/24 21:35 Urine Ketones 40 mg/dL (Negative) 04/05/24 21:35 Urine Blood Negative (Negative) 04/05/24 21:35 Urine Nitrite Negative (Negative) 04/05/24 21:35 Ur Leukocyte Esterase Negative (Negative) 04/05/24 21:35 Stool Occult Blood POSITIVE (NEGATIVE) 04/05/24 07:21 Stl C. cayetanensis PCR Not Detected (Not Detect.) 04/05/24 21:35 Stool Rotavirus A PCR Not Detected (Not Detect.) 04/05/24 21:35 Stl Adenov F 40/41 PCR Not Detected (Not Detect.) 04/05/24 21:35 Stool Astrovirus (PCR) Not Detected (Not Detect.) 04/05/24 21:35 Stool Campylobacter PCR Not Detected (Not Detect.) 04/05/24 21:35 Stool Cryptosporidium PCR Not Detected (Not Detect.) 04/05/24 21:35 Stl Sh Tox Pr E STEC PCR Not Detected (Not Detect.) 04/05/24 21:35 Stool E coli O157 PCR Not applicable (Not Detect.) 04/05/24 21:35 Stl Enterotoxigenic E PCR Not Detected (Not Detect.) 04/05/24 21:35 Stool EPEC (PCR) Not Detected (Not Detect.) 04/05/24 21:35 Stool EAEC (PCR) Not Detected (Not Detect.) 04/05/24 21:35 Stl E. histolytica PCR Not Detected (Not Detect.) 04/05/24 21:35 Stool Giardia Lamblia PCR Not Detected (Not Detect.) 04/05/24 21:35 Stl P. shigelloides PCR Not Detected (Not Detect.) 04/05/24 21:35 Stool Salmonella PCR Not Detected (Not Detect.) 04/05/24 21:35 Stool Sapovirus (PCR) Not Detected (Not Detect.) 04/05/24 21:35 Stl Shigella/EIEC PCR Not Detected (Not Detect.) 04/05/24 21:35 St Y.enterocolitica PCR Not Detected (Not Detect.) 04/05/24 21:35 Stool Vibrio (PCR) Not Detected (Not Detect.) 04/05/24 21:35 Stl Vibrio cholerae PCR Not Detected (Not Detect.) 04/05/24 21:35 Stl Norovirus GI/GII PCR Not Detected (Not Detect.) 04/05/24 21:35 C. difficile Tox B Gene NEGATIVE (Negative) 04/05/24 21:35 Impressions Abdomen/Pelvis CT 04/05/24 08:28 IMPRESSION: Acute/flare ulcerative colitis of with the likely blood products/gastrointestinal bleed and the transverse colon and descending colon. No pneumoperitoneum or intestinal obstruction pattern. Fleischner guidelines were followed. Electronically signed by: Garry Quarles MD 04/05/2024 09:19 AM [facility] Discharge Plan Discharge Anticipated Discharge Date/Time: 04/07/24 11:34 Patient Disposition: Home, Self-Care Discharge Diagnosis: Ulcerative colitis flare Anemia from iron deficiency Referrals: Jose Stephen PA-C [Primary Care Provider] - 1 Week Vasiliy House MD [Physician] - 2 Weeks Discharge Medications: New metronidazole 500 mg Tablet 500 mg PO Q8H Qty: 15 0RF prednisone 10 mg tablet See Rx Instructions .ROUTE .COMPLEX Qty: 70 0RF Rx Instructions: 40 mg (4 tabs) daily x 7 days, then 30 mg (3 tabs) daily x 7 days, then 20 mg (2 tabs) daily x 7 days, then 10 mg (1 tab) daily x 7 days levofloxacin 750 mg tablet 750 mg PO DAILY Qty: 5 0RF ferrous sulfate 325 mg (65 mg iron) tablet 325 mg PO Q OTHER DAY Qty: 15 0RF Changed mesalamine 0.375 gram capsule,extended release 24hr 1.5 g PO DAILY Qty: 120 0RF Discharge Orders: Discharge Order (Routine); Ordered 04/07/24 Ordered By: Tyler Brantley Diet: Advance to usual diet Activity on Discharge: As tolerated Stand Alone Forms: Patient Portal Discharge page Print Language: Afghan Care Plan Goals: Recovery from UC flare Health Concerns: Ulcerative colitis flare Anemia from iron deficiency Plan of Treatment: Take antibiotics for 5 days: levofloxacin 750 mg daily metronidazole 500 mg 3x a day [do not drink alcohol while on this medication] Take steroids: prednisone 10 mg tabs, taper as follows: 40 mg (4 tabs) daily x 7 days, then 30 mg (3 tabs) daily x 7 days, then 20 mg (2 tabs) daily x 7 days, then 10 mg (1 tab) daily x 7 days Take iron: ferrous sulfate 325 mg once daily Follow up with Dr House from [facility] Gastroenterology in 2 weeks Please follow up with your primary care doctor within 1 week. Return to the hospital if you experience recurrent or worsening symptoms. Assessment: See Discharge Summary.
--- NOTE | 2024-04-07 12:29 | MHC.CM.PN ---
DP: PT HAS BEEN MEDICALLY CLEARED FOR DC HOME, NO SERVICES. PT HAS OWN RIDE HOME.
[2024-04-09 13:18] LABS: TS Negative Control Passed; TS Panel A 0; TS Panel B 1; TS Positive Control Passed; TSpotTB Negative (Negative)
== END 2024-04-07 12:46 | disposition home or self-care (01) | DRG 245 ==
LOC: HO.ED 10:04 → HO.EDOVER 11:00 → HO.S3 19:27
PROVIDERS: Physician Assistant Medical; Admitting Provider Hospitalist; Emergency Provider Emergency Medicine; PCP Physician Assistant; Visit Provider Family Medicine
DX: K51.911 Ulcerative colitis, unspecified with rectal bleeding (principal); D62 Acute posthemorrhagic anemia; T47.8X6A Underdosing of other agents primarily affecting gastrointestinal system, initial encounter; Z91.120 Patient's intentional underdosing of medication regimen due to financial hardship; Z79.899 Other long term (current) drug therapy
CPT/HCPCS: 36415; 74178; 80048; 80053; 81003; 82272; 82728; 83540; 83690; 85025; 85027; 85652; 86140; 86481; 87493; 87507; 99285; J0744; J1756; J1836; J2405; J2919; J7120; Q9967

== ENCOUNTER → 2024-04-05 07:37 | Outpatient (BNV) | payer MEDICAID, SELFPAY | PROVIDERS: Emergency Provider Emergency Medicine; PCP Physician Assistant; Visit Provider Radiology Diagnostic Radiology | DX: R10.32 Left lower quadrant pain (principal) | CPT/HCPCS: 74178 ==

== ENCOUNTER → 2024-04-05 10:39 | Outpatient (BNV) | payer MEDICAID, SELFPAY | PROVIDERS: Admitting Provider Hospitalist; Emergency Provider Emergency Medicine; PCP Physician Assistant; Visit Provider Hospitalist | DX: K51.90 Ulcerative colitis, unspecified, without complications (principal); D72.829 Elevated white blood cell count, unspecified; D64.9 Anemia, unspecified | CPT/HCPCS: 99223; 99232 ==

== ENCOUNTER → 2024-04-05 10:39 | Outpatient (BNV) | payer MEDICAID, SELFPAY | PROVIDERS: Admitting Provider Hospitalist; Emergency Provider Emergency Medicine; PCP Physician Assistant; Visit Provider Internal Medicine Gastroenterology | DX: K51.90 Ulcerative colitis, unspecified, without complications (principal) | CPT/HCPCS: 99223; 99232 ==

== ENCOUNTER 2024-04-13 12:57 | Outpatient (AMB) | payer OTHER, MEDICAID, SELFPAY ==
--- NOTE | 2024-04-13 11:21 | A.OFFPC_ITS ---
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 Accompanied by: Self / Same As Patient Allergies No Known Allergies Allergy (Verified 04/13/24 13:21) Medication List - Last Reconciled 04/13/24 by Jose Stephen PA-C ferrous sulfate 325 mg PO Q OTHER DAY levofloxacin 750 mg PO DAILY mesalamine ER 1.5 grams (4 x 0.375 gram) PO DAILY metronidazole 500 mg PO Q8H prednisone 40 mg (4 tabs) daily x 7 days, then 30 mg (3 tabs) daily x 7 days, then 20 mg (2 tabs) daily x 7 days, then 10 mg (1 tab) daily x 7 days sildenafil 100 mg PO DAILY 30 days Tobacco use date assessed: 04/13/24 Dental Screening Dental Screen Date: 04/13/24 Did you have a dental visit in the last 12 months?: Yes Did you have a dental problem in the last 6 months where you did not have access to dental care?: No Was dental information given to patient?: Patient has dentist HPI [facility] ED FU/FMLA form HPI Details Patient is a 38-year-old male being evaluated today via telephone. Patient has a past medical history of ulcerative colitis. Due to insurance issues he has not been able to afford his inflammatory bowel medication. He presented to the [facility] with severe abdominal pain and bloody mucousy diarrhea. His abdominal imaging showed an acute flare up in his ulcerative colitis. He was started on IV iron in antibiotics. He clinically improved. He was discharged home with a steroid taper, oral iron and oral antibiotics. 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 He is clinically improved in is interested in returning back to work this weekend. Also reports he needs a refill on his sildenafil for his erectile dysfunction. [facility] Medical History Ulcerative colitis Surgical History H/O colonoscopy Family History Father Diabetes Hypertension Mother Tachycardia Daughter In good health Daughter In good health Sister In good health Sister In good health Sister In good health Maternal Grandfather Myocardial infarction Maternal Aunt Stroke Maternal Grandmother Alzheimer disease Social History Household Members: Significant Other Housing: Apartment Do you presently have visiting nurse or other home services: No Alcohol intake: current Alcohol intake frequency: holidays/special occasions only Alcohol type: beer, wine and hard liquor Patient Tobacco Use Status: Never used Tobacco Tobacco use type: Smokeless Tobacco Years Smoked: 2016 e-Cigarette/Vaping Use: Former Use (quit 04/05/24) Second Hand Smoke Exposure: No Advance Directives Date on File: 12/13/20 service: No Current occupational status: employed 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[employer] Cognitive needs: No Hearing needs: No Vision needs: No Questionnaire PHQ-9 Over the last 2 weeks, how often have you been bothered by any of the following problems? 1. Little interest or pleasure in doing things: not at all 2. Feeling down, depressed, or hopeless: not at all 3. Trouble falling or staying asleep, or sleeping too much: not at all 4. Feeling tired or having little energy: not at all 5. Poor appetite or overeating: not at all 6. Feeling bad about yourself - or that you are a failure or have let yourself or your family down: not at all 7. Trouble concentrating on things, such as reading the newspaper or watching television: not at all 8. Moving or speaking so slowly that other people could have noticed. Or the opposite - being so fidgety or restless that you have been moving around a lot more than usual: not at all 9. Thoughts that you would be better off or of hurting yourself in some way: not at all Total score: 0 Depression Screening Interpretation: Negative Depression Screening Done: Yes 92604 - PHQ-9 Billing: Yes Source: Developed by Drs. Ricky Minor, Ev Vazquez, Baljit Blancas and colleagues, with an educational anitra from [employer]. Thrive Questionnaire Date Thrive assessed: 04/13/24 I am a: Patient What is your living situation today?: I have a steady place to live Within the past 12 months, did the food you bought not last and you didn't have the money to get more?: Never true Within the past 12 months, did you worry whether your food would run out before you got money to buy more?: Never true Do you have trouble paying for medicines?: No Do you have trouble getting transportation to medical appointments?: No Do you have trouble paying your heating and electricity bill?: No Do you have trouble taking care of your child, family member or friend?: No Do you have trouble with day-to-day activities such as bathing, preparing meals, shopping, managing finances, etc.?: No Are you currently unemployed and looking for a job?: No Are you interested in more education?: No Please select the resources that you would like help with: None Currently or been in a relationship where the following occur: No concerns reported THRIVE Score: 0 AUDIT C Alcohol Use Questionnaire (AUDIT-C) 1. How often do you have a drink containing alcohol?: 2-4 times a month 2. How many drinks containing alcohol do you have on a typical day when you are drinking?: 1 or 2 3. How often do you have six or more drinks on one occasion?: Never Total Score: 2 RAN-7 AMB Questionnaire RAN-7 Date RAN - 7 assessed: 04/13/24 Feeling nervous, anxious, or on edge: 1 = Several days Not being able to stop or control worryin = Several days Worrying too much about different things: 1 = Several days Trouble relaxin = Several days Being so restless that it is hard to sit still: 1 = Several days Becoming easily annoyed or irritable: 1 = Several days Feeling afraid as if something awful might happen: 1 = Several days Total RAN-7 score (0-4 normal; 5-9 mild; 10-14 moderate; 15-21 severe): 7 Source: Developed by Drs. Ricky Minor, Ev Vazquez, Baljit Blancas and colleagues, with an educational anitra from [employer]. RAN-7 Assessment Billing RAN-7 Assessment Tool: RAN-7 Assessment 54487 Review of Systems Const Denies headache(s) Eyes Denies loss of vision ENT Denies vertigo, Denies dizziness, Denies headache(s) and Denies sore throat Card Denies chest pain, Denies leg edema and Denies lightheadedness Resp Denies cough, Denies hemoptysis and Denies wheezing GI Denies abdominal pain, Denies melena, Denies constipation, Denies diarrhea and Denies vomiting Denies dysuria, Denies urinary frequency and Denies urinary urgency Musc Denies arthralgias, Denies joint swelling, Denies numbness and Denies tingling Neuro Denies behavioral changes, Denies vertigo, Denies dizziness, Denies headache(s), Denies loss of vision, Denies memory loss, Denies numbness and Denies tingling Psych Denies anxiety, Denies behavioral changes, Denies depression, Denies memory loss and Denies panic attacks Reagan/Lymph Denies easy bleeding and Denies easy bruising Aller/Immun Denies wheezing Physical exam (Primary Care) Tobacco/Smoking Status: Tobacco use Status Tobacco use date assessed 04/13/24 04/13/24 11:24 Patient Tobacco Use Status Never used Tobacco 04/13/24 11:24 Tobacco use type Smokeless Tobacco 04/13/24 11:24 e-Cigarette/Vaping Use Former Use (quit 04/05/24) 04/13/24 11:24 PHQ-9: PHQ-9 Score PHQ-9: Total score 0 04/13/24 12:47 Depression Screening Interpretation: Negative Thrive Assessment: Date of Thrive Assessment Date Thrive assessed 04/13/24 04/13/24 11:24 Currently or been in a relationship where the following occur: No concerns reported Telehealth Telehealth Telehealth Platform: Telephone Location of provider rendering services: practice address Location of patient: address on file Patient Identification confirmed using: Name, : Yes Telehealth method: voice only Patient verbally consented to treatment: Yes Patient verbally consented to billing insurance company: Yes Patient informed of any privacy concerns related to visit: Yes Minutes spent on Phone/Video with Pt.: 11 Coding Level of Care Code Tele Est Pt Level 4 (77687) Diagnoses Ulcerative colitis with complication, unspecified location K51.919 Ulcerative colitis location: unspecified ulcerative colitis location Digestive disease complication type: unspecified complication Additional Codes RAN-7 Assessment Billing - RAN-7 Assessment Tool: RAN-7 Assessment 56171 ([id number]) PHQ-9 - 81274 - PHQ-9 Billing: Yes ([id number]) Assessment & Plan Assessment & Plan (1) Ulcerative colitis: Comment: Dx: 2019, had flared in 11/2020, reports having daily diarrhea 2-5 x/d Code(s): K51.90 - Ulcerative colitis, unspecified, without complications Category: Medical Qualifiers: Ulcerative colitis location: unspecified ulcerative colitis location Digestive disease complication type: unspecified complication Qualified Code(s): K51.919 - Ulcerative colitis, unspecified with unspecified complications Plan: As per HPI patient recently hospitalized for acute inflammatory bowel disease exacerbation and anemia.. Is doing much better since being treated with antibiotics and steroids. He is still working with his channel marketing coordinator about getting a controlling medication for his inflammatory bowel disease. He would like to return to work April 17. Orders: Orders IRON PROFILE Today D50.0 - Iron deficiency anemia secondary to blood loss (chronic), D50.9 - Iron deficiency anemia, unspecified Erythrocyte Sedimentation Rate Today K51.919 - Ulcerative colitis, unspecified with unspecified complications Magnesium Today K51.919 - Ulcerative colitis, unspecified with unspecified complications Complete Blood Count no Diff Today D50.0 - Iron deficiency anemia secondary to blood loss (chronic) Comprehensive Ramsey. Panel Fast Today Z13.1 - Encounter for screening for diabetes mellitus Medications: New sildenafil 100 mg PO DAILY 30 days 30 tabs 3RF N52.2 - Drug-induced erectile dysfunction
== END 2024-04-13 14:28 | disposition home or self-care (01) ==
PROVIDERS: PCP Physician Assistant; Visit Provider Physician Assistant
DX: K51.919 Ulcerative colitis, unspecified with unspecified complications (principal)

== ENCOUNTER → 2024-04-13 12:57 | Outpatient (BNVA) | payer OTHER, SELFPAY | PROVIDERS: PCP Physician Assistant; Visit Provider Physician Assistant | DX: K51.919 Ulcerative colitis, unspecified with unspecified complications (principal) | CPT/HCPCS: 96127 ==

== ENCOUNTER 2024-10-03 11:03 | Outpatient (REF) | payer OTHER, SELFPAY ==
[2024-10-03 11:45] LABS: Hematocrit 41.0 % (42.0-52.0); Hemoglobin 12.7 g/dl (14.0-18.0); Mean Corpuscular HGB Conc 31.0 g/dl (31.0-36.0); Mean Corpuscular Hemoglobin 23.9 pg (27.0-33.0); Mean Corpuscular Volume 77.2 fL (80.0-98.0); NRBC Abs Auto 0.000 X10*3/uL (0.0-0.012); NRBC Pct Auto 0.0 /100WBC (0.0-0.2); Platelet Count 532 X10*3/uL (160-400); Red Blood Count 5.31 X10*6/uL (4.60-5.80); White Blood Count 6.7 X10*3/uL (4.8-10.8)
[2024-10-03 12:37] LABS: Alanine Aminotransferase 15 U/L (0-40); Albumin Level 4.5 g/dL (3.5-5.0); Alkaline Phosphatase 68 U/L (39-117); Anion Gap 11 (12-20); Aspartate Amino Transferase 21 U/L (5-37); Blood Urea Nitrogen 11 mg/dL (9-16); Calcium 9.2 mg/dL (8.4-10.2); Carbon Dioxide 31 mmol/L (22-29); Chloride 105 mmol/L (96-108); Estimated Glomerular Filt Rate > 60; Iron 51 mcg/dL (45-160); Magnesium 1.9 mg/dL (1.6-2.6); Percent Iron Saturation 13 % (15-50); Potassium 3.9 mmol/L (3.3-5.1); Sodium 143 mmol/L (135-145); Total Iron Binding Capacity 399 mcg/dL (228-428); Total Protein 7.3 g/dL (6.5-8.0); Unsaturated Iron Binding 348 ug/dL
== END 2024-10-03 11:04 | disposition home or self-care (01) ==
LOC: HO.LAB 11:03
PROVIDERS: PCP Physician Assistant; Visit Provider Physician Assistant
DX: Z13.1 Encounter for screening for diabetes mellitus (principal); D50.0 Iron deficiency anemia secondary to blood loss (chronic); K51.919 Ulcerative colitis, unspecified with unspecified complications; R00.2 Palpitations; R06.02 Shortness of breath
CPT/HCPCS: 36415; 80053; 83540; 83735; 84443; 85027; 85652

== ENCOUNTER → 2024-11-04 09:24 | Outpatient (REF) | payer OTHER, SELFPAY ==
--- NOTE | 2024-11-04 09:27 | ECG_ITS ---
Test Reason : sob Blood Pressure : */* mmHG Vent. Rate : 66 BPM Atrial Rate : 66 BPM P-R Int : 154 ms QRS Dur : 92 ms QT Int : 398 ms P-R-T Axes : 27 37 19 degrees QTcB Int : 417 ms Normal sinus rhythm Normal ECG When compared with ECG of 30-Jan-2021 12:31, No significant change was found Referred By: Jose Stephen Electronically Signed By: LARA WETZEL MD
--- NOTE | 2024-11-04 09:27 | CA_ITS ---
Acquisition Time: 2024-11-04 10:30:56 Total Exercise Time: 00:09:26 Test Indications: Dyspnea Medications: SEE H&P Protocol: MIRNA Max HR: 160 BPM 87% of Pred: 182 BPM Max BP: 132/80 mmHG Max Work Load: 10.7 METS Exercise stress test with exercise 9 mins 26 secs of Mirna Protocol, achieving 87% MPHR, with reports of mild SOB, no chest pain, with isolated PVCs, with normotenisve response to exercise. Without any EKG changes meetingcriteria for ischemia. In recovery, pt's breathing returned to baseline. Test reviewed with Dr. Shannon. Referred By: Jose Stephen Electronically Signed By: Carlos Valdez
== END ==
LOC: HO.CARD 09:24
PROVIDERS: PCP Physician Assistant; Visit Provider Physician Assistant
DX: R06.02 Shortness of breath (principal)
CPT/HCPCS: 93005; 93017

== ENCOUNTER → 2024-11-04 09:27 | Outpatient (BNV) | payer OTHER, SELFPAY | PROVIDERS: PCP Physician Assistant; Visit Provider Internal Medicine Cardiovascular Disease | DX: I49.3 Ventricular premature depolarization (principal); R06.02 Shortness of breath | CPT/HCPCS: 93010; 93016; 93018 ==

== ENCOUNTER 2024-11-21 09:08 | Outpatient (REF) | payer OTHER, SELFPAY ==
--- NOTE | ~2024-11-21 | XR_ITS ---
EXAMINATION: XR CHEST CLINICAL INFORMATION: R05.2 - Subacute cough COMPARISON: 08/20/2019. 09/09/2019. TECHNIQUE: 2 views of the chest were obtained. FINDINGS: The cardiac, hilar, and mediastinal contours are normal. The lungs are clear bilaterally. There is no pneumothorax or pleural effusion. There is no focal osseous or soft tissue abnormality. XR/XR chest 2V IMPRESSION: Normal chest. Electronically signed by: Avel Figueroa MD 11/21/2024 10:15 AM EDT
== END 2024-11-21 09:09 | disposition home or self-care (01) ==
LOC: HO.XRAY 09:08
PROVIDERS: PCP Physician Assistant; Visit Provider Physician Assistant
DX: Z00.00 Encounter for general adult medical examination without abnormal findings (principal); R05.2 Subacute cough; D50.0 Iron deficiency anemia secondary to blood loss (chronic); K51.919 Ulcerative colitis, unspecified with unspecified complications; E66.811 Obesity, class 1; Z79.899 Other long term (current) drug therapy; Z68.30 Body mass index [BMI] 30.0-30.9, adult
CPT/HCPCS: 71046; 99395

== ENCOUNTER 2024-11-21 09:08 | Outpatient (AMB) | payer OTHER, SELFPAY ==
--- NOTE | 2024-11-21 09:11 | MHC.PC.OV ---
Vital Signs 11/21/24 09:12 Height 5 ft 9 in Weight 205 lb BMI 30.3 BP 140/72 H Blood Pressure Location Lt brachial Position Sitting Pulse 71 Pulse Source Pulse Oximeter Temp 97.2 F Temp Source Temporal Artery Scan Pulse Oximetry (%) 98 Oxygen Delivery Method Room Air Intake Visit Reasons: annual exam Intake Note: Patient is here today for a physical. Dental Chairside Assistant Required: No Chemistry Professor: Not Required per policy Accompanied by: Self / Same As Patient Allergies No Known Allergies Allergy (Verified 11/21/24 09:23) Medication List - Last Reconciled 11/21/24 by Jose Stephen PA-C ferrous sulfate 325 mg PO Q OTHER DAY mesalamine ER 1.5 grams (4 x 0.375 gram) PO DAILY 30 days pantoprazole 20 mg PO DAILY sildenafil 100 mg PO DAILY 30 days Tobacco use date assessed: 11/21/24 Dental Screening Dental Screen Date: 04/13/24 HPI annual exam HPI Details Patient is a 39-year-old male here today for a routine annual physical. Patient has a past medical history significant for inflammatory bowel disease, GERD, obesity. Concern--> patient reports feeling a discomfort/tickle in his throat to which makes him cough, also reporting shortness of breath from time to time. He attributes these symptoms secondary to his previous smoking history. Will get a chest x-ray to evaluate his lungs. .. Inflammatory bowel disease: The patient has a history of inflammatory bowel disease and has been taking mesalamine consistently, which has reduced bleeding episodes. He previously used Entyvio but discontinued it due to insurance issues.. .. Vaccines: Up-to-date with tetanus vaccine, declines COVID and flu vaccines [facility] Medical History Leukocytosis Anemia Ulcerative colitis, acute Ulcerative colitis Surgical History H/O colonoscopy Family History Father Diabetes Hypertension Mother Tachycardia Daughter In good health Daughter In good health Sister In good health Sister In good health Sister In good health Maternal Grandfather Myocardial infarction Maternal Aunt Stroke Maternal Grandmother Alzheimer disease Social History Household Members: Significant Other Housing: Apartment Do you presently have visiting nurse or other home services: No Alcohol intake: current Alcohol intake frequency: a few times a month Alcohol type: beer, wine and hard liquor Patient Tobacco Use Status: Never used Tobacco Tobacco use type: Smokeless Tobacco Years Smoked: 2016 e-Cigarette/Vaping Use: Former Use (quit 04/05/24) Second Hand Smoke Exposure: No Advance Directives Date on File: 12/13/20 service: No Current occupational status: employed 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[employer] Cognitive needs: No Hearing needs: No Vision needs: No Questionnaire Thrive Questionnaire Date Thrive assessed: 04/13/24 RAN-7 AMB Questionnaire RAN-7 Date RAN - 7 assessed: 04/13/24 Source: Developed by Drs. Ricky Minor, Ev Vazquez, Baljit Blancas and colleagues, with an educational anitra from [employer]. Review of Systems Const Denies body aches, Denies chills, Denies excessive sweating, Denies fatigue, Denies fever(s) and Denies headache(s) Eyes Denies blurry vision ENT Denies dysphagia, Denies vertigo, Denies dizziness, Denies headache(s), Denies hearing loss and Denies tinnitus Card Denies chest pain, Denies chest pain with activity, Denies syncope, Denies irregular heart rhythm and Reports dyspnea Resp Denies chest congestion, Reports cough, Denies hemoptysis, Reports dyspnea and Denies wheezing GI Denies abdominal pain, Denies melena, Denies hematochezia, Denies coffee ground emesis, Denies dysphagia, Denies diarrhea, Denies nausea and Denies vomiting Denies difficulty urinating, Denies dysuria, Denies urinary frequency, Denies urinary hesitancy and Denies urinary urgency Musc Denies arthralgias, Denies limited range of motion, Denies muscle cramps and Denies muscle weakness Skin/Breast Denies rash and Denies skin ulcer Neuro Denies Abnormal speech present, Denies confusion, Denies vertigo, Denies dizziness, Denies syncope, Denies headache(s), Denies memory loss and Denies seizure-like activity Psych Denies anxiety, Denies confusion, Denies depression, Denies memory loss, Denies panic attacks and Denies paranoia Endo Denies excessive sweating, Denies fatigue, Denies flushing, Denies polydipsia and Denies polyuria Aller/Immun Denies wheezing Physical exam (Primary Care) Vital Signs: Last Vital Signs Temp 97.2 F 11/21/24 09:12 Pulse 71 11/21/24 09:12 BP 140/72 H 11/21/24 09:12 Pulse Ox 98 11/21/24 09:12 Oxygen Delivery Method Room Air 11/21/24 09:12 BMI result Body Mass Index 30.3 BMI Assessment/Plan discussion: High BMI High, discussed plan: lifestyle, weight reduction, dietary and physical activity Tobacco/Smoking Status: Tobacco use Status Tobacco use date assessed 11/21/24 11/21/24 09:20 Patient Tobacco Use Status Never used Tobacco 11/21/24 09:20 Tobacco use type Smokeless Tobacco 11/21/24 09:20 e-Cigarette/Vaping Use Former Use (quit 04/05/24) 11/21/24 09:20 Thrive Assessment: Date of Thrive Assessment Date Thrive assessed 04/13/24 11/21/24 09:20 Const General: cooperative, comfortable, no acute distress, alert and awake; No confusion Orientation/consciousness: oriented to person, oriented to place, patient oriented x3 and No confusion HENMT Head: Yes normocephalic Ears: external ears normal and TM's normal bilaterally Face and sinus: No sinus tenderness Mouth: Normal oral and palatal mucosa present and tongue normal Teeth and gingiva: dentition normal and gingiva normal Throat: Yes posterior oropharynx normal, Yes tonsils normal and Yes uvula midline Eyes Conjunctivae: conjunctivae normal Sclerae: sclerae normal Pupils: Equal, round and reactive pupils present EOM: EOMs intact bilaterally Direct Ophthalmoscopy: No no photophobia Neck Neck: Yes no lymphadenopathy, No tender and Yes no JVD Thyroid: Thyroid normal Carotids: no bruits Chest Chest palpation & inspection: no tenderness Resp Effort & Inspection: normal respiratory effort, no audible wheezes, not labored and no stridor Auscultation: no crackles, no rales, no rhonchi and no wheezes Cardio Jugular venous distension: no JVD Rate: regular rate, not bradycardic and not tachycardic Rhythm: regular rhythm Bruits: no carotid bruits Peripheral pulses: Peripheral pulses 2+ throughout GI Inspection: Yes normal to inspection, No abdominal wall ecchymosis and No visible herniation Palpation (GI): Soft to palpation, nontender, no guarding, not rigid and No hepatosplenomegaly present Auscultation: normoactive bowel sounds General: Yes no CVA tenderness Back/Spine/Pelvis Back: no CVA tenderness and No back tenderness Cervical Spine: cervical ROM normal Thoracic/Lumbar Spine: thoracic and lumbar spine normal to inspection, straight leg raise negative bilaterally, No thoraco-lumbar ROM limited and No lumbar spinal tenderness Skin Lesions: no lesions Rashes: no rashes Wounds: no wounds Neuro General: oriented to person, oriented to place, patient oriented x3, CN's II-XI intact bilaterally and No confusion Cranial nerves: Yes Equal, round and reactive pupils present and Yes Normal accommodation reflex present Cognition (Neuro): normal cognition Speech: No Abnormal speech present Gait exam (Neuro): Normal gait present Motor exam (neuro): 5/5 motor strength present throughout Extrem Right upper extremity: full ROM; no cyanosis Left upper extremity: full ROM; no cyanosis Right lower extremity: no edema Left lower extremity: no edema Psych Appearance: grossly normal Mental Status: mental status grossly normal Affect: normal affect Attitude: cooperative Thought process: Normal thought process present Coding Level of Care Code Est Pt Prev Care 18-39y([id number]) Diagnoses Annual physical exam Z00.00 Subacute cough R05.2 Cough type: subacute Iron deficiency anemia due to chronic blood loss D50.0 Anemia type: iron deficiency Iron deficiency anemia type: chronic blood loss Ulcerative colitis with complication, unspecified location K51.919 Ulcerative colitis location: unspecified ulcerative colitis location Digestive disease complication type: unspecified complication Class 1 obesity E66.811 Assessment & Plan Assessment & Plan (1) Annual physical exam: Code(s): Z00.00 - Encounter for general adult medical examination without abnormal findings Category: Medical Plan: As per HPI (2) Cough: Code(s): R05.9 - Cough, unspecified Category: Medical Qualifiers: Cough type: subacute Qualified Code(s): R05.2 - Subacute cough Plan: Thierno chest x-ray to evaluate his lungs. Otherwise advised on nasal spray and allergy medication for possible postnasal drip (3) Anemia: Code(s): D64.9 - Anemia, unspecified Category: Medical Qualifiers: Anemia type: iron deficiency Iron deficiency anemia type: chronic blood loss Qualified Code(s): D50.0 - Iron deficiency anemia secondary to blood loss (chronic) Plan: Anemia likely secondary to his inflammatory bowel disease. Will continue to monitor (4) Ulcerative colitis: Comment: Dx: 2019, had flared in 11/2020, reports having daily diarrhea 2-5 x/d Code(s): K51.90 - Ulcerative colitis, unspecified, without complications Category: Medical Qualifiers: Ulcerative colitis location: unspecified ulcerative colitis location Digestive disease complication type: unspecified complication Qualified Code(s): K51.919 - Ulcerative colitis, unspecified with unspecified complications Plan: Has been in remission for quite some time, taking daily mesalamine regularly and feels his inflammatory bowel disease is stable. The patient should continue mesalamine for inflammatory bowel disease management and consider follow-up with a field artillery crewmember for potential colonoscopy or endoscopy. (5) Class 1 obesity: Code(s): E66.811 - Obesity, class 1 Category: Medical Plan: Patient does understand his BMI is over 30 will work on being more physically active and adapting to better eating habits to reduce his weight Orders: Orders XR chest 2V Today R05.2 - Subacute cough Comprehensive [place]. Panel Fast Today Z13.1 - Encounter for screening for diabetes mellitus Complete Blood Count no Diff Today Z13.1 - Encounter for screening for diabetes mellitus IRON PROFILE Today D50.9 - Iron deficiency anemia, unspecified
[2024-11-21 09:12] VITALS: BP 140/72; PULSE 71; TEMP 36.2; O2SAT 98; BMI 30.3
== END 2024-11-21 09:47 | disposition home or self-care (01) ==
PROVIDERS: PCP Physician Assistant; Visit Provider Physician Assistant
DX: Z00.00 Encounter for general adult medical examination without abnormal findings (principal); K51.919 Ulcerative colitis, unspecified with unspecified complications; E66.811 Obesity, class 1; Z68.30 Body mass index [BMI] 30.0-30.9, adult; R05.2 Subacute cough; D50.0 Iron deficiency anemia secondary to blood loss (chronic)

== ENCOUNTER → 2024-11-21 09:56 | Outpatient (BNV) | payer OTHER, SELFPAY | PROVIDERS: PCP Physician Assistant; Visit Provider Radiology Diagnostic Radiology | DX: R05.2 Subacute cough (principal) | CPT/HCPCS: 71046 ==